=== PATIENT | female | born 1965 | race Caucasian/White ===

== ENCOUNTER 2016-10-12 12:36 | Emergency (ER) | payer MEDICARE, MEDICAID ==
[2016-10-12 12:50] VITALS: BP 107/79
[2016-10-12] MEDS ORDERED: Sodium Chloride 0.9% 10 ML Syringe FLUSH PRN (12:55)
[2016-10-12] MEDS ORDERED: Ondansetron 4 MG/2 ML SDV IVPUSH ONE (13:12)
--- NOTE | 2016-10-12 13:13 | EDM.PDOC ---
ED HISTORY OF PRESENT ILLNESS - General Chief Complaint: Chest Pain Stated Complaint: SHOULDER PAIN Time Seen by Provider: 10/12/16 13:02 Source of Information: Reports: Patient History Limitations: Reports: No limitations - History of Present Illness INITIAL COMMENTS - FREE TEXT/NARRATIVE: Patient presents for evaluation and treatment of chest pain and left shoulder pain. Patient reports that the chest pain began around 10 AM this morning. She says that she was folding clothes at the time. Says it radiates up to her left shoulder. She reports associated symptoms of nausea, diaphoresis, lightheadedness, dizziness and shortness of breath. Patient reports that she first noticed a shortness of breath yesterday. She states that the pain is currently an 8/10. He describes it as a sharp stabbing sensation and a tightness. She did take 3 sublingual nitroglycerin prior to arrival in the ER. She states this helped with the tightness but not the sharp pain. Patient denies any cough, fevers or syncope. Patient states that she normally takes an 81 mg aspirin daily but did not take any aspirin today. Patient has a history of a stent to the right coronary artery. This was performed in June 2014. She states that she had 3 negative stress test prior to the coronary artery stent placement. She states that after 3 negative stress test, a blockage was seen on a CT scan. She then had an angiogram which revealed an 80% blockage of the right coronary artery. She does not recall her last stress test. She also reports that she has smaller vessels to small to be stented. These are medically managed by taking an 81 mg aspirirn daily, Toprol, Imdur and Lipitor. Patient resides in [facility]. Her primary care provider resides there. She reports that her last visit was within the last 6 months. She is here in [place] visiting a friend. she's been seen in our ER on multiple occasions for chest discomfort and other pain-related issues. Location, General: Reports: chest, upper extremity, left Quality: Reports: Sharp, Other (tightness) Associated Symptoms (General): Reports: chest pain, diaphoresis, nausea/vomiting , shortness of breath. Denies: cough Treatments [employer] AMBASS[employer]OR: Reports: Nitroglycerin. Denies: Aspirin - Related Data Allergies/ADRs: Allergies Allergy/AdvReac Type Severity Reaction Status Date / Time celecoxib [From Celebrex] Allergy unknown Verified 10/12/16 12:47 ketorolac tromethamine Allergy Rash Verified 10/12/16 12:47 [From Toradol] lisinopril Allergy Other Verified 10/12/16 12:47 NSAIDS (Non-Steroidal Allergy Chills Verified 10/12/16 12:47 Anti-Inflamma pantoprazole sodium Allergy Other Verified 10/12/16 12:47 [From Protonix] Sulfa (Sulfonamide Allergy unknown Verified 10/12/16 12:47 Antibiotics) sumatriptan [From Imitrex] Allergy Rash Verified 10/12/16 12:47 sumatriptan succinate Allergy Rash Verified 10/12/16 12:47 [From Imitrex] Home Meds: Home Meds Albuterol [Ventolin HFA] 2 puff INH Q6HR PRN 11/19/13 [History] Lidocaine 5% [Lidoderm 5%] 1 patch TOP DAILY PRN 01/04/14 [History] Aspirin 81 mg PO DAILY 08/10/15 [History] Cholecalciferol (Vitamin D3) [Vitamin D] 1 tab PO DAILY 08/10/15 [History] Isosorbide Mononitrate [Imdur] 30 mg PO DAILY 09/15/15 [History] Ranitidine [Zantac] 150 mg PO BID 10/10/15 [History] ClonazePAM [KlonoPIN] 0.5 mg PO BID PRN 03/08/16 [History] Mirtazapine [Remeron] 30 mg PO BEDTIME 06/08/16 [History] Tribild 1 tab PO BEDTIME 06/08/16 [History] atorvaSTATin [Lipitor] 40 mg PO DAILY 06/08/16 [History] ARIPiprazole [Abilify] 5 mg PO DAILY 06/12/16 [History] Metoprolol Tartrate [Lopressor] 25 mg PO BID 06/12/16 [History] traZODone 100 mg PO BEDTIME PRN 06/12/16 [History] Promethazine [Phenergan] 0.5 ml TOP Q6H PRN 09/01/16 [History] Past Medical History HEENT History: Reports: Impaired vision Cardiovascular History: Reports: Angina, Hypertension, Stents Other Cardiovascular History: June 2014 at [facility] right cornary artery stent Respiratory History: Reports: COPD Gastrointestinal History: Reports: Diverticulosis Other Gastrointestinal History: gastroparesis Genitourinary History: Reports: None Musculoskeletal History: Reports: Fibromyalgia, Other (see below) Other Musculoskeletal History: neuropathy in both feet Neurological History: Reports: Neuropathy, peripheral, Other (see below) Other Neuro History: Fibromyalsia Psychiatric History: Reports: Anxiety, Depression Endocrine/Metabolic History: Reports: None Hematologic History: Reports: None Immunologic History: Reports: HIV Oncologic (Cancer) History: Reports: None Dermatologic History: Reports: None - Infectious Disease History Infectious Disease History: Reports: HIV-Human immunodeficiency virus - Past Surgical History HEENT Surgical History: Reports: Adenoidectomy, Tonsillectomy Cardiovascular Surgical History: Reports: Coronary artery stent, Other (see below) Other Cardiovascular Surgeries/Procedures: 2 angiograms GI Surgical History: Reports: Cholecystectomy Female Surgical History: Reports: Hysterectomy, Other (see below) Other Female Surgeries/Procedures: bladder sling Social & Family History - Family History Family Medical History: Noncontributory Cardiac: Reports: CAD, Hypertension - Tobacco Use Smoking Status *Q: Current Every Day Smoker Years of Tobacco use: 35 Packs/Tins Daily: 0.5 Used Tobacco, but Quit: No Second Hand Smoke Exposure: No - Caffeine Use Caffeine Use: Reports: Coffee, Soda - Alcohol Use Days Per Week of Alcohol Use: 1 Number of Drinks Per Day: 2 Total Drinks Per Week: 2 - Recreational Drug Use Recreational Drug Use: Yes Drug Use in Last 12 Months: No Recreational Drug Type: Reports: Marijuana/Hashish Recreational Drug Use Frequency: Rarely - Living Situation & Occupation Living situation: Reports: single Occupation: unemployed ED ROS GENERAL - Review of Systems Review Of Systems: See Below Constitutional: Reports: diaphoresis. Denies: fever, chills Respiratory: Reports: shortness of breath. Denies: cough Cardiovascular: Reports: Chest pain, Lightheadedness. Denies: Syncope GI/Abdominal: Reports: Nausea. Denies: Vomiting Musculoskeletal: Reports: shoulder pain Neurological: Reports: dizziness. Denies: syncope ED EXAM, GENERAL - Physical Exam Exam: See Below Exam Limited By: No limitations General Appearance: alert, WD/WN, no apparent distress Respiratory/Chest: no respiratory distress, lungs clear, normal breath sounds Cardiovascular: normal peripheral pulses, regular rate, rhythm, no murmur Neurological: alert, oriented, normal cognition Psychiatric: normal affect, normal mood Skin Exam: Warm, Dry, Normal color EKG INTERPRETATION EKG Date: 10/12/16 Time: 12:50 Rhythm: NSR Rate (beats/min): 62 [place]: normal P-wave: present QRS: normal ST-T: normal QT: normal Comparison: no change EKG Interpretation Comments: NSR at [address] segment changes. Reviewed by myself and Dr. Walter. Course - Vital Signs Last Recorded V/S: Last Vital Signs Temp 36.3 C 10/12/16 12:47 Pulse 77 10/12/16 12:47 Resp 12 10/12/16 12:47 BP 107/79 10/12/16 12:47 Pulse Ox 100 10/12/16 12:47 - Orders/Labs/Meds Orders: Active Orders 24 hr Category Date Time Status Cardiac Monitoring [RC] . DIRECTED Care 10/12/16 12:56 Active EKG 12 Lead [EKG Documentation Completion] [RC] STAT Care 10/12/16 12:54 Active Peripheral IV Care [RC] . DIRECTED Care 10/12/16 12:55 Active Sodium Chloride 0.9% [Saline Flush] Med 10/12/16 12:55 Active 10 ml FLUSH ASDIRECTED PRN Peripheral IV Insertion Adult [OM.PC] Routine Oth 10/12/16 12:55 Ordered Medication Orders Sodium Chloride (Saline Flush) 10 ml FLUSH ASDIRECTED PRN PRN Reason: Keep Vein Open Last Admin: 10/12/16 13:22 Dose: 10 ml Labs: Laboratory Tests 10/12/16 10/12/16 10/12/16 Range/Units 13:05 13:05 13:05 WBC 8.08 (3.98-10.04) K/mm3 RBC 4.41 (3.98-5.22) M/mm3 Hgb 13.3 (11.2-15.7) gm/L Hct 40.6 (34.1-44.9) % MCV 92.1 (79.4-94.8) fl MCH 30.2 (25.6-32.2) pg MCHC 32.8 (32.2-35.5) g/dl RDW Std Deviation 47.2 H (36.4-46.3) fL Plt Count 223 (182-369) K/mm3 MPV 9.4 (9.4-12.3) fl Neut % (Auto) 58.5 (34.0-71.1) % Lymph % (Auto) 33.3 (19.3-51.7) % [place] % (Auto) 7.2 (4.7-12.5) % Eos % (Auto) 0.7 (0.7-5.8) Baso % (Auto) 0.2 (0.1-1.2) % Neut # 4.72 (1.56-6.13) K/mm3 Lymph # 2.69 (1.18-3.74) K/mm3 [place] # 0.58 H (0.24-0.36) K/mm3 Eos # 0.06 (0.04-0.36) K/mm3 Baso # 0.02 (0.01-0.08) K/mm3 PT 10.0 (8.0-13.0) SECONDS INR 0.95 Sodium 139 (136-145) mEq/L Potassium 3.9 (3.5-5.1) mEq/L Chloride 104 (98-107) mEq/L Carbon Dioxide 24 (21-32) mEq/L Anion Gap 14.9 (5-15) BUN 14 (7-18) mg/dL Creatinine 0.8 (0.55-1.02) mg/dL Est Cr Clr Drug Dosing 68.05 mL/min Estimated GFR (MDRD) > 60 (>60) mL/min BUN/Creatinine Ratio 17.5 (14-18) Glucose 103 (74-106) mg/dL Calcium 9.0 (8.5-10.1) mg/dL Total Bilirubin 0.5 (0.2-1.0) mg/dL AST 17 (15-37) U/L ALT 26 (14-59) U/L Alkaline Phosphatase 115 (46-116) U/L Troponin I < 0.017 (0.00-0.056) ng/mL Total Protein 7.5 (6.4-8.2) g/dl Albumin 4.3 (3.4-5.0) g/dl Globulin 3.2 gm/dL Albumin/Globulin Ratio 1.3 (1-2) 10/12/16 Range/Units 14:37 WBC (3.98-10.04) K/mm3 RBC (3.98-5.22) M/mm3 Hgb (11.2-15.7) gm/L Hct (34.1-44.9) % MCV (79.4-94.8) fl MCH (25.6-32.2) pg MCHC (32.2-35.5) g/dl RDW Std Deviation (36.4-46.3) fL Plt Count (182-369) K/mm3 MPV (9.4-12.3) fl Neut % (Auto) (34.0-71.1) % Lymph % (Auto) (19.3-51.7) % [place] % (Auto) (4.7-12.5) % Eos % (Auto) (0.7-5.8) Baso % (Auto) (0.1-1.2) % Neut # (1.56-6.13) K/mm3 Lymph # (1.18-3.74) K/mm3 [place] # (0.24-0.36) K/mm3 Eos # (0.04-0.36) K/mm3 Baso # (0.01-0.08) K/mm3 PT (8.0-13.0) SECONDS INR Sodium (136-145) mEq/L Potassium (3.5-5.1) mEq/L Chloride (98-107) mEq/L Carbon Dioxide (21-32) mEq/L Anion Gap (5-15) BUN (7-18) mg/dL Creatinine (0.55-1.02) mg/dL Est Cr Clr Drug Dosing mL/min Estimated GFR (MDRD) (>60) mL/min BUN/Creatinine Ratio (14-18) Glucose (74-106) mg/dL Calcium (8.5-10.1) mg/dL Total Bilirubin (0.2-1.0) mg/dL AST (15-37) U/L ALT (14-59) U/L Alkaline Phosphatase (46-116) U/L Troponin I < 0.017 (0.00-0.056) ng/mL Total Protein (6.4-8.2) g/dl Albumin (3.4-5.0) g/dl Globulin gm/dL Albumin/Globulin Ratio (1-2) Meds: Medications Generic Name Dose Route Start Last Admin Trade Name Freq PRN Reason Stop Dose Admin Sodium Chloride 10 ml 10/12/16 12:55 10/12/16 13:22 Saline Flush FLUSH 10 ml ASDIRECTED PRN Administration Keep Vein Open Discontinued Medications Generic Name Dose Route Start Last Admin Trade Name Ioana PRN Reason Stop Dose Admin Acetaminophen 1,000 mg 10/12/16 15:07 10/12/16 15:15 Tylenol PO 10/12/16 15:08 975 mg NOW ONE Administration Aspirin 324 mg 10/12/16 13:15 10/12/16 13:22 Aspirin PO 10/12/16 13:16 324 mg ONETIME ONE Administration Al Hydroxide/Mg Hydroxide 30 0 ml 10/12/16 14:14 10/12/16 14:25 ml/ Lidocaine HCl 15 ml PO 10/12/16 14:15 15 ml ONETIME ONE Administration Hyoscyamine 0.125 mg 10/12/16 14:14 10/12/16 14:24 Hyomax-Sl SL 10/12/16 14:15 0.125 mg ONETIME ONE Administration Ondansetron HCl 4 mg 10/12/16 13:12 10/12/16 13:22 Zofran IVPUSH 10/12/16 13:13 4 mg ONETIME ONE Administration - Radiology Interpretation Free Text/Narrative:: Chest [address] Rajan : 1. Incidental findings. Left shoulder impression per Dr. Rajan : 1. No abnormality is identified on left shoulder study. - Re-Assessments/Exams Free Text/Narrative Re-Assessment/Exam: 10/12/16 14:08 Patient searched on the [place] prescription drug registry. 26 prescriptions from 13 prescribers within the last year for controlled substances. most recently received hydrocodone 5-325 on 09-01-16. Patient has been seen on numerous occasions for chest pain and other pain related complaints. I am suspicious the patient is seeking narcotic pain medication. Labs returned. Trop is within normal limits at <0.017. Will repeat trop in about 30 min. to ensure this is not cardiac. Pt is 10.0, INR is 0.95 WBC is 8.08, hgb is 13.3 and plts are 223 Sodium is 139, potassium is 3.9 and chloride is 104. Anion gap is 14.9 AST is 17, ALT is 26 and alk phos is 115 Patient reports continued pain. She was given levsin and a GI cocktail for suspected reflux and hiatal hernia relief. 10/12/16 14:49 Repeat top is negative at <0.017 10/12/16 15:10 Continues to complain of pain. Will give 1gram tylenol and plan on discharge home. Departure - Departure Time of Disposition: 15:08 Disposition: Home, Self-Care 01 Condition: fair Clinical Impression: Non-cardiac chest pain Instructions: Nonspecific Chest Pain, [id number] Referrals: Dena Hutchison PA-C [Primary Care Provider] - Forms: ED Department Discharge Additional Instructions: Follow up with your primary care provider in 1-2 weeks. Ice or moist heat to the sore areas. [id number] Tylenol or Motrin as needed for pain and symptom relief. Please return to the ER should your symptoms change or worsen. - My Orders Last 24 Hours: My Active Orders 10/12/16 12:54 EKG 12 Lead [EKG Documentation Completion] [RC] STAT 10/12/16 12:55 Peripheral IV Care [RC] . DIRECTED Sodium Chloride 0.9% [Saline Flush] 10 ml FLUSH ASDIRECTED PRN Peripheral IV Insertion Adult [OM.PC] Routine 10/12/16 12:56 Cardiac Monitoring [RC] . DIRECTED - Assessment/Plan Last 24 Hours: My Active Orders 10/12/16 12:54 EKG 12 Lead [EKG Documentation Completion] [RC] STAT 10/12/16 12:55 Peripheral IV Care [RC] . DIRECTED Sodium Chloride 0.9% [Saline Flush] 10 ml FLUSH ASDIRECTED PRN Peripheral IV Insertion Adult [OM.PC] Routine 10/12/16 12:56 Cardiac Monitoring [RC] . DIRECTED
[2016-10-12] MEDS ORDERED: Aspirin 81 MG Tab.Chew PO ONE (13:15)
[2016-10-12] MEDS ORDERED: Hyoscyamine 0.125 MG Tab.SL SL ONE (14:14)
[2016-10-12] MEDS ORDERED: Alum Hydrox/Mag Hydrox/Simeth 30 ML, Lidocaine 2% 15 ML PO ONE ×2 (14:14)
--- NOTE | 2016-10-12 14:42 | CR ---
Chest: Two views of the chest were obtained. Comparison: Previous chest x-ray of 09/01/[address] of 09/02/16. Heart size and mediastinum are normal. Lungs are clear. Slight scoliosis is noted within the spine. Surgical clips are seen from prior cholecystectomy. Impression: 1. Incidental findings. Nothing acute is identified on two-view chest x-ray. Diagnostic code #2
--- NOTE | 2016-10-12 14:42 | CR ---
Left shoulder: Three views of the left shoulder were obtained. Comparison: No previous shoulder study. Glenohumeral joint and acromioclavicular joint appears within normal limits. No acute fracture, dislocation or other bony abnormality is seen. Impression: 1. No abnormality is identified on left shoulder study. Diagnostic code #1
[2016-10-12] MEDS ORDERED: Acetaminophen 325 MG Tab PO ONE (15:07)
== END 2016-10-12 15:18 | disposition home or self-care (01) ==
LOC: JD.ED 12:36
DX: R07.89 Other chest pain (principal); M25.512 Pain in left shoulder; R42 Dizziness and giddiness; F17.210 Nicotine dependence, cigarettes, uncomplicated; Z88.2 Allergy status to sulfonamides; Z88.5 Allergy status to narcotic agent; Z88.6 Allergy status to analgesic agent; Z88.8 Allergy status to other drugs, medicaments and biological substances; Z79.82 Long term (current) use of aspirin; Z79.899 Other long term (current) drug therapy; Z90.89 Acquired absence of other organs; Z90.710 Acquired absence of both cervix and uterus; Z98.890 Other specified postprocedural states
CPT/HCPCS: 36415; 71020; 71020-26; 73030-26-LT; 73030-LT; 80053; 84484; 85025; 85610; 93005; 96374; 99284; 99285-25; A9270-GY; J2405; J7050

== ENCOUNTER 2018-08-27 12:03 | Emergency (ER) | payer MEDICARE, MEDICAID ==
[2018-08-27 12:29] VITALS: BP 147/89
[2018-08-27] MEDS ORDERED: Ondansetron 4 MG/2 ML SDV IVPUSH ONE (13:08)
[2018-08-27] MEDS ORDERED: Sodium Chloride 0.9% 1,000 ML IV SCH (13:15)
--- NOTE | 2018-08-27 13:21 | EDM.PDOC ---
ED HPI GENERAL MEDICAL PROBLEM - General Chief Complaint: Abdominal Pain Stated Complaint: ABD PAIN Time Seen by Provider: 08/27/18 12:54 Source of Information: Reports: Patient, RN Notes Reviewed - History of Present Illness INITIAL COMMENTS - FREE TEXT/NARRATIVE: 53-year-old female with onset of abdominal pain, nausea and vomiting about 9 hours ago during the middle of the night. Her pain was generalized but more upper than lower abdomen followed by nausea and vomiting. Did have a large BM at that time but no diarrhea. She's had no fever or chills. Her discomfort continues to be fairly generalized with intermittent cramping. She has not been eating today. She still does have her appendix and gallbladder. She also states she has hx of gastroparesis. Abdominal Pain Score (Numeric/FACES): 8 - Related Data Allergies Allergy/AdvReac Type Severity Reaction Status Date / Time celecoxib [From Celebrex] Allergy unknown Verified 08/27/18 22:29 ketorolac tromethamine Allergy Rash Verified 08/27/18 22:29 [From Toradol] lisinopril Allergy Other Verified 08/27/18 22:29 NSAIDS (Non-Steroidal Allergy Chills Verified 08/27/18 22:29 Anti-Inflamma pantoprazole sodium Allergy Other Verified 08/27/18 22:29 [From Protonix] Sulfa (Sulfonamide Allergy unknown Verified 08/27/18 22:29 Antibiotics) sumatriptan [From Imitrex] Allergy Rash Verified 08/27/18 22:29 sumatriptan succinate Allergy Rash Verified 08/27/18 22:29 [From Imitrex] Home Meds: Home Meds Albuterol [Ventolin HFA] 2 puff INH Q6HR PRN 11/19/13 [History] Lidocaine 5% [Lidoderm 5%] 1 patch TOP DAILY PRN 01/04/14 [History] Aspirin 81 mg PO DAILY 08/10/15 [History] Cholecalciferol (Vitamin D3) [Vitamin D] 1 tab PO DAILY 08/10/15 [History] Isosorbide Mononitrate [Imdur] 30 mg PO DAILY 09/15/15 [History] Ranitidine [Zantac] 150 mg PO BID 10/10/15 [History] ClonazePAM [KlonoPIN] 0.5 mg PO BID PRN 03/08/16 [History] Mirtazapine [Remeron] 30 mg PO BEDTIME 06/08/16 [History] Tribild 1 tab PO BEDTIME 06/08/16 [History] atorvaSTATin [Lipitor] 40 mg PO DAILY 06/08/16 [History] ARIPiprazole [Abilify] 5 mg PO DAILY 06/12/16 [History] Metoprolol Tartrate [Lopressor] 25 mg PO BID 06/12/16 [History] traZODone 100 mg PO BEDTIME PRN 06/12/16 [History] Promethazine [Phenergan] 0.5 ml TOP Q6H PRN 09/01/16 [History] Ondansetron [Zofran ODT] 4 mg PO Q8HR PRN #10 tab.dis 08/27/18 [Rx] Past Medical History HEENT History: Reports: Impaired Vision Cardiovascular History: Reports: Stents Other Cardiovascular History: 4 years ago Respiratory History: Reports: COPD Gastrointestinal History: Reports: Diverticulosis Other Gastrointestinal History: gastroparesis Genitourinary History: Reports: None Musculoskeletal History: Reports: Fibromyalgia, Other (See Below) Other Musculoskeletal History: neuropathy in both feet Neurological History: Reports: Neuropathy, Peripheral, Other (See Below) Other Neuro History: Fibromyalsia Psychiatric History: Reports: Anxiety, Depression Endocrine/Metabolic History: Reports: None Hematologic History: Reports: None Immunologic History: Reports: HIV Oncologic (Cancer) History: Reports: None Dermatologic History: Reports: None - Infectious Disease History Infectious Disease History: Reports: HIV-Human Immunodeficiency Virus - Past Surgical History Cardiovascular Surgical History: Reports: Coronary Artery Stent, Other (See Below) GI Surgical History: Reports: Cholecystectomy Female Surgical History: Reports: Hysterectomy, Other (See Below) Social & Family History - Family History Family Medical History: Noncontributory Cardiac: Reports: CAD, Hypertension - Tobacco Use Smoking Status *Q: Current Some Day Smoker Years of Tobacco use: 20 Packs/Tins Daily: 0.5 - Caffeine Use Caffeine Use: Reports: Coffee - Living Situation & Occupation Living situation: Reports: Single Occupation: Unemployed ED ROS GENERAL - Review of Systems Review Of Systems: See Below Constitutional: Denies: Fever, Chills, Diaphoresis HEENT: Denies: Throat Pain Respiratory: Denies: Shortness of Breath Cardiovascular: Denies: Chest Pain GI/Abdominal: Reports: Abdominal Pain, Nausea, Vomiting. Denies: Hematochezia, Melena Musculoskeletal: Denies: Back Pain Skin: Denies: Jaundice, Rash Neurological: Reports: Dizziness. Denies: Trouble Speaking ED EXAM, GI/ABD - Physical Exam Exam: See Below General Appearance: Alert, Mild Distress Eyes: Bilateral: Normal Appearance Nose: Normal Inspection Throat/Mouth: Normal Inspection Head: Atraumatic Neck: Supple Respiratory/Chest: No Respiratory Distress, Lungs Clear, Normal Breath Sounds Cardiovascular: Regular Rate, Rhythm GI/Abdominal Exam: Soft, Rebound, Tender (Moderate diffuse tenderness upper mid abdomen, mild bilateral lower abdominal tenderness). No: Guarding Back Exam: No: CVA Tenderness (L), CVA Tenderness (R) Extremities: Normal Inspection Neurological: Alert, Oriented, Normal Cognition, No Motor/Sensory Deficits Skin Exam: Warm, Dry, Normal Color Course - Vital Signs Last Recorded V/S: Last Vital Signs Temp 97.0 F 08/27/18 12:26 Pulse 74 08/27/18 12:26 Resp 18 08/27/18 12:26 BP 147/89 H 08/27/18 12:26 Pulse Ox 98 08/27/18 12:26 - Orders/Labs/Meds Labs: Laboratory Tests 08/27/18 08/27/18 08/27/18 Range/Units 14:20 14:20 14:20 WBC 7.65 (3.98-10.04) K/mm3 RBC 4.28 (3.98-5.22) M/mm3 Hgb 13.0 (11.2-15.7) gm/L Hct 40.5 (34.1-44.9) % MCV 94.6 (79.4-94.8) fl MCH 30.4 (25.6-32.2) pg MCHC 32.1 L (32.2-35.5) g/dl RDW Std Deviation 45.7 (36.4-46.3) fL Plt Count 251 (182-369) K/mm3 MPV 8.6 L (9.4-12.3) fl Neutrophils % (Manual) 57 (40-60) % Band Neutrophils % 1 (0-10) % Lymphocytes % (Manual) 38 (20-40) % Atypical Lymphs % 0 % Monocytes % (Manual) 4 (2-10) % Eosinophils % (Manual) 0 L (0.7-5.8) % Basophils % (Manual) 0 L (0.1-1.2) Platelet Estimate Adequate RBC Morph Comment Normal Sodium 143 (136-145) mEq/L Potassium 3.7 (3.5-5.1) mEq/L Chloride 110 H (98-107) mEq/L Carbon Dioxide 26 (21-32) mEq/L Anion Gap 10.7 (5-15) BUN 9 (7-18) mg/dL Creatinine 0.6 (0.55-1.02) mg/dL Est Cr Clr Drug Dosing 88.27 mL/min Estimated GFR (MDRD) > 60 (>60) mL/min BUN/Creatinine Ratio 15.0 (14-18) Glucose 92 (74-106) mg/dL Calcium 8.0 L (8.5-10.1) mg/dL Total Bilirubin 0.2 (0.2-1.0) mg/dL AST 16 (15-37) U/L ALT 28 (14-59) U/L Alkaline Phosphatase 102 (46-116) U/L C-Reactive Protein 0.3 (<1.0) mg/dL Total Protein 6.6 (6.4-8.2) g/dl Albumin 3.2 L (3.4-5.0) g/dl Globulin 3.4 gm/dL Albumin/Globulin Ratio 0.9 L (1-2) Meds: Medications Discontinued Medications Generic Name Dose Route Start Last Admin Trade Name Freq PRN Reason Stop Dose Admin Hydromorphone HCl 1 mg 08/27/18 13:08 08/27/18 14:35 Dilaudid IVPUSH 08/27/18 13:09 0.5 mg ONETIME ONE Administration Hydromorphone HCl 0.5 mg 08/27/18 16:16 08/27/18 16:23 Dilaudid IVPUSH 08/27/18 16:17 0.5 mg ONETIME ONE Administration Sodium Chloride 1,000 mls @ 999 mls/hr 08/27/18 13:15 08/27/18 13:24 Normal Saline IV 999 mls/hr ONETIME IVET Administration Metoclopramide HCl 5 mg 08/27/18 17:05 08/27/18 17:12 Reglan IVPUSH 08/27/18 17:06 5 mg ONETIME ONE Administration Ondansetron HCl 4 mg 08/27/18 13:08 08/27/18 13:24 Zofran IVPUSH 08/27/18 13:09 4 mg ONETIME ONE Administration Ondansetron HCl 4 mg 08/27/18 17:06 08/27/18 17:13 Zofran Odt PO 08/27/18 17:07 4 mg ONETIME ONE Administration Sodium Chloride 10 ml 08/27/18 13:08 08/27/18 16:23 Saline Flush FLUSH 10 ml ASDIRECTED PRN Administration Keep Vein Open - Re-Assessments/Exams Free Text/Narrative Re-Assessment/Exam: 08/30/18 12:40 We did give IV fluid, IV zofran and dilaudid and that did help her feel much better. Labs were relatively nl, increased gas upper colon on XRay, no visible air fluid levels. Discharge instr. as documented. Departure - Departure Time of Disposition: 17:07 Disposition: Home, Self-Care 01 Condition: Fair Clinical Impression: Gastroparesis, Abdominal pain Nausea & vomiting Qualifiers: Vomiting type: unspecified Vomiting Intractability: unspecified Qualified Code( s): R11.2 - Nausea with vomiting, unspecified - Discharge Information Prescriptions: Ondansetron [Zofran ODT] 4 mg PO Q8HR PRN #10 tab.dis PRN Reason: Nausea/Vomiting Instructions: Abdominal Pain, Adult, Nausea and Vomiting, Adult, Gastroparesis Referrals: PCP,Not In Area [Primary Care Provider] - Forms: ED Department Discharge Additional Instructions: Rest, clear liquids only until tomorrow afternoon, then very careful bland diet as tolerated, take the Zofran we are sending home with you in about 3-4 hours. You may continue to use Zofran every 6-8 hours as needed for severe nausea or vomiting. Follow-up with your regular medical provider if not much better within 1-2 days as expected.
[2018-08-27] MEDS: HYDROmorphone 1 MG/ML Syringe IVPUSH ONE ×2 (13:24→14:35)
[2018-08-27] MEDS: Sodium Chloride 0.9% 10 ML Syringe FLUSH PRN ×2 (13:25→16:23)
[2018-08-27] MEDS ORDERED: HYDROmorphone 1 MG/ML Syringe IVPUSH ONE (16:16)
[2018-08-27] MEDS ORDERED: Metoclopramide 10 MG/2 ML SDV IVPUSH ONE (17:05)
[2018-08-27] MEDS ORDERED: Ondansetron 4 MG Tab.DIS PO ONE (17:06)
--- NOTE | 2018-08-28 07:58 | CR ---
Abdomen: Supine and upright views of the abdomen were obtained. Comparison: Previous abdominal x-ray of 09/28/15. Gas is noted within the colon which appears within normal limits. Surgical clips are seen from prior cholecystectomy. Additional surgical material is seen within the right pelvis. No abnormal calcifications or soft tissue abnormality is seen. Bony structures appear within normal limits for the patient's age. Impression: 1. Incidental findings. Nothing acute is appreciated. Diagnostic code #2
== END 2018-08-27 17:20 | disposition home or self-care (01) ==
LOC: JD.ED 12:03
DX: K31.84 Gastroparesis (principal); F17.210 Nicotine dependence, cigarettes, uncomplicated; J44.9 Chronic obstructive pulmonary disease, unspecified; F32.9 Major depressive disorder, single episode, unspecified; F41.9 Anxiety disorder, unspecified; B20 Human immunodeficiency virus [HIV] disease; G62.9 Polyneuropathy, unspecified; Z88.2 Allergy status to sulfonamides; Z88.6 Allergy status to analgesic agent; Z88.8 Allergy status to other drugs, medicaments and biological substances; Z79.82 Long term (current) use of aspirin; Z79.899 Other long term (current) drug therapy; Z90.49 Acquired absence of other specified parts of digestive tract; Z90.710 Acquired absence of both cervix and uterus
CPT/HCPCS: 36415; 74019; 80053; 85007; 85027; 86140; 96361; 96374; 96375; 96376; 99284; A9270; J1170; J2405; J2765; J7040

== ENCOUNTER 2020-06-29 11:14 | Emergency (ER) | payer MEDICARE, MEDICAID ==
[2020-06-29] MEDS ORDERED: HYDROmorphone 0.5 MG/0.5 ML Syringe IVPUSH ONE ×2 (12:12→13:28)
[2020-06-29] MEDS ORDERED: Ondansetron 4 MG/2 ML SDV IVPUSH ONE (12:14)
--- NOTE | 2020-06-29 12:19 | EDM.PDOC ---
ED HPI GENERAL MEDICAL PROBLEM - General Chief Complaint: Back Pain or Injury Stated Complaint: BACK PAIN Time Seen by Provider: 06/29/20 12:01 Source of Information: Reports: Patient, RN Notes Reviewed History Limitations: Reports: No Limitations - History of Present Illness INITIAL COMMENTS - FREE TEXT/NARRATIVE: Patient is a 55-year-old female who presents to the ED for the evaluation of some ongoing lower back pain. She notes this has been present for the last 2 days. She characterizes this as a deep burning/ache across her entire back. She feels like a stick whacked her on the back. She notes last night she didn't get much sleep due to the pain. She has not had any fevers or chills, she has had a mild bit of nausea, but no vomiting or diarrhea. She denies any trauma to the area, or any near slips trips or falls. She has a history of chronic constipation, and denies any sort of diarrhea. She notes she has had pain like this in the past, with a previous kidney infection. She states that 2 days ago she got up off the chair, and felt a twinge in her back and thought maybe she pulled a muscle. Pain has been constant since then, and kind of worsens in p ulses. She is not taking anything for [id number] management as she has an allergic reaction to NSAIDs and gets rashes on her stomach from this. Bilateral Lower Back Pain Score (Numeric/FACES): 9 - Related Data Allergies Allergy/AdvReac Type Severity Reaction Status Date / Time celecoxib [From Celebrex] Allergy unknown Verified 08/27/18 22:29 ketorolac tromethamine Allergy Rash Verified 08/27/18 22:29 [From Toradol] lisinopril Allergy Other Verified 08/27/18 22:29 NSAIDS (Non-Steroidal Allergy Chills Verified 08/27/18 22:29 Anti-Inflamma pantoprazole sodium Allergy Other Verified 08/27/18 22:29 [From Protonix] Sulfa (Sulfonamide Allergy unknown Verified 08/27/18 22:29 Antibiotics) sumatriptan [From Imitrex] Allergy Rash Verified 08/27/18 22:29 sumatriptan succinate Allergy Rash Verified 08/27/18 22:29 [From Imitrex] Home Meds: Home Meds Albuterol [Ventolin HFA] 2 puff INH Q6HR PRN 11/19/13 [History] Aspirin 81 mg PO DAILY 08/10/15 [History] ClonazePAM [KlonoPIN] 0.5 mg PO BID PRN 03/08/16 [History] Tribild 1 tab PO BEDTIME 06/08/16 [History] atorvaSTATin [Lipitor] 40 mg PO DAILY 06/08/16 [History] ARIPiprazole [Abilify] 5 mg PO DAILY 06/12/16 [History] Ondansetron [Zofran ODT] 4 mg PO Q8HR PRN #10 tab.dis 08/27/18 [Rx] Acetaminophen/HYDROcodone [[place] 325-5 MG] 1 tab PO Q6H PRN #15 tablet 06/29/20 [Rx] Orphenadrine [Norflex] 100 mg PO BID PRN #20 tab 06/29/20 [Rx] PARoxetine HCl [Paxil] 1 tab PO DAILY 06/29/20 [History] hydrOXYzine HCL [Hydroxyzine HCl] 1 tab PO DAILY PRN 06/29/20 [History] Past Medical History HEENT History: Reports: Impaired Vision Cardiovascular History: Reports: Stents Other Cardiovascular History: 4 years ago Respiratory History: Reports: COPD Gastrointestinal History: Reports: Diverticulosis Other Gastrointestinal History: gastroparesis Genitourinary History: Reports: Other (See Below) (past kidney infection) Musculoskeletal History: Reports: Fibromyalgia Other Musculoskeletal History: neuropathy in both feet Neurological History: Reports: Neuropathy, Peripheral Other Neuro History: Fibromyalsia Psychiatric History: Reports: Anxiety, Depression Immunologic History: Reports: HIV - Infectious Disease History Infectious Disease History: Reports: HIV-Human Immunodeficiency Virus - Past Surgical History HEENT Surgical History: Reports: Adenoidectomy, Tonsillectomy Cardiovascular Surgical History: Reports: Coronary Artery Stent, Other (See Below) Other Cardiovascular Surgeries/Procedures: 2 angiograms GI Surgical History: Reports: Cholecystectomy Female Surgical History: Reports: Hysterectomy, Other (See Below) Other Female Surgeries/Procedures: bladder sling Social & Family History - Family History Family Medical History: No Pertinent Family History Cardiac: Reports: CAD, Hypertension - Tobacco Use Tobacco Use Status *Q: Current Every Day Tobacco User Years of Tobacco use: 30 Packs/Tins Daily: 0.5 - Caffeine Use Caffeine Use: Reports: Coffee - Recreational Drug Use Recreational Drug Use: Yes Drug Use in Last 12 Months: Yes Recreational Drug Type: Reports: Marijuana/Hashish Recreational Drug Use Frequency: Weekly - Living Situation & Occupation Living situation: Reports: Single Occupation: Unemployed ED ROS GENERAL - Review of Systems Review Of Systems: Comprehensive ROS is negative, except as noted in HPI. ED EXAM,LOWER BACK PAIN/INJURY - Physical Exam Exam: See Below Exam Limited By: No Limitations General Appearance: Alert, WD/WN, No Apparent Distress Respiratory/Chest: No Respiratory Distress, Lungs Clear, Normal Breath Sounds, No Accessory Muscle Use, Chest Non-Tender Cardiovascular: Normal Peripheral Pulses, Regular Rate, Rhythm, No Murmur GI/Abdominal: Normal Bowel Sounds, Soft, Non-Tender, No Distention, No Mass Back Exam: Normal Inspection, Full Range of Motion, CVA Tenderness (L). No: CVA Tenderness (R), Muscle Spasm Extremities: Normal Inspection, Normal Capillary Refill Neurological: Alert, Normal Mood/Affect, Normal Dorsiflexion, Normal Plantar Flexion, No Motor/Sensory Deficits Psychiatric: Normal Affect, Normal Mood Skin Exam: Warm, Dry, Intact, Normal Color, No Rash Course - Vital Signs Last Recorded V/S: Last Vital Signs Temp 97.6 F 06/29/20 11:31 Pulse 75 06/29/20 13:54 Resp 20 06/29/20 13:54 BP 108/72 06/29/20 13:54 Pulse Ox 100 06/29/20 13:54 - Orders/Labs/Meds Orders: Active Orders 24 hr Category Date Time Status CULTURE URINE [RM] Routine Lab 06/29/20 12:54 Ordered Peripheral IV Insertion Adult [OM.PC] Routine Oth 06/29/20 12:11 Ordered Labs: Laboratory Tests 06/29/20 06/29/20 06/29/20 Range/Units 11:40 11:40 11:47 WBC 5.28 (3.98-10.04) K/mm3 RBC 4.47 (3.98-5.22) M/mm3 Hgb 13.2 (11.2-15.7) gm/dl Hct 42.2 (34.1-44.9) % MCV 94.4 (79.4-94.8) fl MCH 29.5 (25.6-32.2) pg MCHC 31.3 L (32.2-35.5) g/dl RDW Std Deviation 46.4 H (36.4-46.3) fL Plt Count 213 (182-369) K/mm3 MPV 9.1 L (9.4-12.3) fl Neut % (Auto) 51.2 (34.0-71.1) % Lymph % (Auto) 36.2 (19.3-51.7) % [place] % (Auto) 9.1 (4.7-12.5) % Eos % (Auto) 2.7 (0.7-5.8) Baso % (Auto) 0.2 (0.1-1.2) % Neut # (Auto) 2.71 (1.56-6.13) K/mm3 Lymph # (Auto) 1.91 (1.18-3.74) K/mm3 [place] # (Auto) 0.48 H (0.24-0.36) K/mm3 Eos # (Auto) 0.14 (0.04-0.36) K/mm3 Baso # (Auto) 0.01 (0.01-0.08) K/mm3 Sodium 139 (136-145) mEq/L Potassium 4.2 (3.5-5.1) mEq/L Chloride 105 (98-107) mEq/L Carbon Dioxide 28 (21-32) mEq/L Anion Gap 10.2 (5-15) BUN 12 (7-18) mg/dL Creatinine 1.0 (0.55-1.02) mg/dL Est Cr Clr Drug Dosing 51.96 mL/min Estimated GFR (MDRD) 57 (>60) mL/min BUN/Creatinine Ratio 12.0 L (14-18) Glucose 96 (74-106) mg/dL Calcium 8.5 (8.5-10.1) mg/dL Total Bilirubin 0.2 (0.2-1.0) mg/dL AST 16 (15-37) U/L ALT 25 (14-59) U/L Alkaline Phosphatase 115 (46-116) U/L Total Protein 7.1 (6.4-8.2) g/dl Albumin 3.4 (3.4-5.0) g/dl Globulin 3.7 gm/dL Albumin/Globulin Ratio 0.9 L (1-2) Urine Color Yellow (Yellow) Urine Appearance Clear (Clear) Urine pH 6.0 (5.0-8.0) Ur Specific [place] > or = 1.030 (1.005-1.030) Urine Protein Negative (Negative) Urine Glucose (UA) Negative (Negative) Urine Ketones Trace H (Negative) Urine Occult Blood Negative (Negative) Urine Nitrite Negative (Negative) Urine Bilirubin Negative (Negative) Urine Urobilinogen 0.2 (0.2-1.0) Ur Leukocyte Esterase Negative (Negative) Urine RBC 0-5 (0-5) /hpf Urine WBC 0-5 (0-5) /hpf Ur Squamous Epith Cells 10-20 H (0-5) /hpf Urine Bacteria Moderate H (FEW) /hpf Urine Mucus Moderate H (FEW) /hpf Meds: Medications Discontinued Medications Generic Name Dose Route Start Last Admin Trade Name Freq PRN Reason Stop Dose Admin Hydromorphone HCl 0.5 mg 06/29/20 12:12 06/29/20 12:26 Dilaudid IVPUSH 06/29/20 12:13 0.5 mg ONETIME ONE Administration Hydromorphone HCl 0.5 mg 06/29/20 13:28 06/29/20 13:51 Dilaudid IVPUSH 06/29/20 13:29 0.5 mg ONETIME ONE Administration Ondansetron HCl 4 mg 06/29/20 12:14 06/29/20 12:24 Zofran IVPUSH 06/29/20 12:15 4 mg ONETIME ONE Administration Sodium Chloride 10 ml 06/29/20 12:11 06/29/20 13:53 Saline Flush FLUSH 10 ml ASDIRECTED PRN Administration Keep Vein Open - Re-Assessments/Exams Free Text/Narrative Re-Assessment/Exam: 06/29/20 12:21 Patient presents to the ED for her ongoing back pain. Have ordered urinalysis, basic labs, half milligram of Dilaudid along with 4 mg Zofran for initial management. Does have some CVA tenderness on her left side, suspect urinary tract infection. 06/29/20 13:27 The patient's labs are unremarkable for any sort of infectious process at this time. Urine to be sent for culture to make sure this is the case. Patient will be treated for muscle back spasms. Should be given a course of Norflex, and some [place] for pain management. Departure - Departure Time of Disposition: 13:28 Disposition: Home, Self-Care 01 Condition: Good Clinical Impression: Back pain Qualifiers: Back pain location: back pain in other location Chronicity: acute Qualified Code(s): M54.9 - Dorsalgia, unspecified - Discharge Information *PRESCRIPTION DRUG MONITORING PROGRAM REVIEWED*: Yes *COPY OF PRESCRIPTION DRUG MONITORING REPORT IN PATIENT LATOSHA: No Prescriptions: Acetaminophen/HYDROcodone [[place] 325-5 MG] 1 tab PO Q6H PRN #15 tablet PRN Reason: Pain Orphenadrine [Norflex] 100 mg PO BID PRN #20 tab PRN Reason: Spasms Instructions: Back Injury Prevention, [id number] Referrals: Do Saini MD [Primary Care Provider] - Forms: ED Department Discharge Additional Instructions: You have been evaluated in the ED for your back pain. Your labs demonstrated no sign of an obvious kidney infection at today's visit. Your urine was sent for culture for confirmation, you will be called in 24 to 48 hours if you should need a course of antibiotics. Please use ice/heat as tolerated to the affected area. You may take Tylenol 500 mg q6 hrs for pain relief. Please do so until you have a tolerable level of pain with activity. Do not exceed 4000mg Tylenol in a 24 hour time period. You were given a prescription for a strong pain medication, hydrocodone/acetaminophen 5/325 mg, please take 1 tab every 6 hours as needed for pain not relieved by Tylenol or ibuprofen alone. Please note this medication does contain Tylenol in it, so do not take more than 4000 mg in a 24- hour time span. These medications can be addictive, so please take as few as possible to achieve adequate pain control. These meds can also be quite constipating, recommend that you increase your oral fluid intake and take a stool softener like MiraLAX while taking these medications. Do not drive while taking this medication. Please return to ED if your symptoms should change or worsen. Sepsis Event Note (ED) - Evaluation Sepsis Screening Result: No Definite Risk - Focused Exam Vital Signs: Vital Signs Temp Pulse Resp BP Pulse Ox 06/29/20 13:54 75 20 108/72 100 06/29/20 11:31 97.6 F 83 26 H 117/75 100 - My Orders Last 24 Hours: My Active Orders 06/29/20 12:11 Peripheral IV Insertion Adult [OM.PC] Routine 06/29/20 12:54 CULTURE URINE [RM] Routine - Assessment/Plan Last 24 Hours: My Active Orders 06/29/20 12:11 Peripheral IV Insertion Adult [OM.PC] Routine 06/29/20 12:54 CULTURE URINE [RM] Routine
[2020-06-29] MEDS: Sodium Chloride 0.9% 10 ML Syringe FLUSH PRN ×2 (12:26→13:53)
[2020-06-29 13:57] VITALS: BP 108/72; PULSE 75
== END 2020-06-29 13:59 | disposition home or self-care (01) ==
LOC: JD.ED 11:14
DX: M54.5 Low back pain (principal); J44.9 Chronic obstructive pulmonary disease, unspecified; F41.9 Anxiety disorder, unspecified; F32.9 Major depressive disorder, single episode, unspecified; F17.210 Nicotine dependence, cigarettes, uncomplicated; Z88.1 Allergy status to other antibiotic agents; Z88.5 Allergy status to narcotic agent; Z88.6 Allergy status to analgesic agent; Z88.8 Allergy status to other drugs, medicaments and biological substances; Z88.2 Allergy status to sulfonamides; Z79.82 Long term (current) use of aspirin; Z79.899 Other long term (current) drug therapy
CPT/HCPCS: 36415; 80053; 81001; 85025; 87086; 96374; 96375; 96376; 99283; J1170; J2405; 99284

== ENCOUNTER 2020-07-18 21:27 | Emergency (ER) | payer MEDICARE, MEDICAID ==
[2020-07-18 21:37] VITALS: BP 110/74; PULSE 86
[2020-07-18] MEDS ORDERED: Sodium Chloride 0.9% 1,000 ML IV SCH (22:30)
--- NOTE | 2020-07-18 22:34 | EDM.PDOC ---
ED HPI GENERAL MEDICAL PROBLEM - General Chief Complaint: Respiratory Problem Stated Complaint: covid sob and pain Time Seen by Provider: 07/18/20 21:46 Source of Information: Reports: Patient History Limitations: Reports: No Limitations - History of Present Illness INITIAL COMMENTS - FREE TEXT/NARRATIVE: This is a 55-year-old female. She was diagnosed with Covid on the or 17 July but her symptoms started on July 14. She comes tonight because she feels like she is short of breath. She has a headache she is got a scratchy throat she is short of breath but no chest pain she hurts all over and ibuprofen does not help. She feels very fatigued. She thinks she got Covid from her friends because of the shortness of breath and the Covid positive she got afrai d. She is HIV positive and has some vague history of coronary artery disease. Headache Pain Score (Numeric/FACES): 9 Generalized Pain Score (Numeric/FACES): 8 - Related Data Allergies Allergy/AdvReac Type Severity Reaction Status Date / Time celecoxib [From Celebrex] Allergy Severe unknown Verified 07/18/20 21:41 ketorolac tromethamine Allergy Severe Rash Verified 07/18/20 21:41 [From Toradol] lisinopril Allergy Severe Other Verified 07/18/20 21:41 NSAIDS (Non-Steroidal Allergy Severe Chills Verified 07/18/20 21:41 Anti-Inflamma pantoprazole sodium Allergy Severe Other Verified 07/18/20 21:41 [From Protonix] Sulfa (Sulfonamide Allergy Severe unknown Verified 07/18/20 21:41 Antibiotics) sumatriptan [From Imitrex] Allergy Severe Rash Verified 07/18/20 21:41 sumatriptan succinate Allergy Severe Rash Verified 07/18/20 21:41 [From Imitrex] Home Meds: Home Meds Albuterol [Ventolin HFA] 2 puff INH Q6HR PRN 11/19/13 [History] Aspirin 81 mg PO DAILY 08/10/15 [History] ClonazePAM [KlonoPIN] 0.5 mg PO BID PRN 03/08/16 [History] Tribild 1 tab PO BEDTIME 06/08/16 [History] atorvaSTATin [Lipitor] 40 mg PO DAILY 06/08/16 [History] ARIPiprazole [Abilify] 5 mg PO DAILY 06/12/16 [History] Ondansetron [Zofran ODT] 4 mg PO Q8HR PRN #10 tab.dis 08/27/18 [Rx] Acetaminophen/HYDROcodone [[place] 325-5 MG] 1 tab PO Q6H PRN #15 tablet 06/29/20 [Rx] Orphenadrine [Norflex] 100 mg PO BID PRN #20 tab 06/29/20 [Rx] PARoxetine HCl [Paxil] 1 tab PO DAILY 06/29/20 [History] hydrOXYzine HCL [Hydroxyzine HCl] 1 tab PO DAILY PRN 06/29/20 [History] Past Medical History HEENT History: Reports: Impaired Vision Cardiovascular History: Reports: Stents Other Cardiovascular History: 4 years ago Respiratory History: Reports: COPD Gastrointestinal History: Reports: Diverticulosis Other Gastrointestinal History: gastroparesis Genitourinary History: Reports: Other (See Below) Musculoskeletal History: Reports: Fibromyalgia Other Musculoskeletal History: neuropathy in both feet Neurological History: Reports: Neuropathy, Peripheral Other Neuro History: Fibromyalsia Psychiatric History: Reports: Anxiety, Depression Endocrine/Metabolic History: Reports: None Hematologic History: Reports: None Immunologic History: Reports: HIV Oncologic (Cancer) History: Reports: None Dermatologic History: Reports: None - Infectious Disease History Infectious Disease History: Reports: HIV-Human Immunodeficiency Virus - Past Surgical History HEENT Surgical History: Reports: Adenoidectomy, Tonsillectomy Cardiovascular Surgical History: Reports: Coronary Artery Stent, Other (See Below) Other Cardiovascular Surgeries/Procedures: 2 angiograms GI Surgical History: Reports: Cholecystectomy Female Surgical History: Reports: Hysterectomy, Other (See Below) Other Female Surgeries/Procedures: bladder sling Social & Family History - Family History Family Medical History: No Pertinent Family History Cardiac: Reports: CAD, Hypertension - Tobacco Use Tobacco Use Status *Q: Current Every Day Tobacco User Years of Tobacco use: 20 Packs/Tins Daily: 0.4 - Caffeine Use Caffeine Use: Reports: Coffee, Soda, Tea - Recreational Drug Use Recreational Drug Use: Yes Drug Use in Last 12 Months: Yes Recreational Drug Type: Reports: Marijuana/Hashish Other Recreational Drug Type: daily - Living Situation & Occupation Living situation: Reports: Single Occupation: Unemployed ED ROS GENERAL - Review of Systems Review Of Systems: See Below Constitutional: Reports: Weakness, Fatigue HEENT: Reports: Other (Scratchy throat) Respiratory: Reports: Shortness of Breath, Cough. Denies: Wheezing, Sputum Cardiovascular: Denies: Chest Pain Endocrine: Reports: Fatigue GI/Abdominal: Reports: Nausea, Vomiting. Denies: Abdominal Pain, Diarrhea : Reports: No Symptoms Musculoskeletal: Reports: Other (Myalgias all over her body) Skin: Reports: No Symptoms Neurological: Reports: Headache Psychiatric: Reports: Anxiety ED EXAM, GENERAL - Physical Exam Exam: See Below Exam Limited By: No Limitations General Appearance: Alert, WD/WN, No Apparent Distress Eye Exam: Bilateral Eye: Normal Inspection Ears: Normal External Exam, Normal Canal, Normal TMs Nose: Normal Inspection Throat/Mouth: Normal Lips, Normal Oropharynx, Normal Voice, No Airway Compromise, Other (Mucous membranes are tacky) Head: Normocephalic Neck: Supple Respiratory/Chest: No Respiratory Distress, Lungs Clear, Normal Breath Sounds. No: Rales, Rhonchi, Wheezing Cardiovascular: Regular Rate, Rhythm, No Murmur GI/Abdominal: Soft, Non-Tender Extremities: Normal Inspection, Normal Range of Motion. No: Pedal Edema Neurological: Alert, Oriented Psychiatric: Anxious Skin Exam: Warm, Dry Course - Vital Signs Last Recorded V/S: Last Vital Signs Temp 97.3 F 07/18/20 21:35 Pulse 86 07/18/20 21:35 Resp 20 07/18/20 21:35 BP 110/74 07/18/20 21:35 Pulse Ox 99 07/18/20 21:35 - Orders/Labs/Meds Orders: Active Orders 24 hr Category Date Time Status CXR [Chest 1V Frontal] [CR] Stat Exams 07/18/20 22:30 Taken Sodium Chloride 0.9% [Normal Saline] 1,000 ml Med 07/18/20 22:30 Active IV ASDIRECTED Medication Orders Sodium Chloride (Normal Saline) 1,000 mls @ 1,000 mls/hr IV ASDIRECTED IVET Last Admin: 07/18/20 22:44 Dose: 1,000 mls/hr Documented by: SLOAN Labs: Laboratory Tests 07/18/20 07/18/20 07/18/20 Range/Units 22:46 22:46 22:46 WBC 3.69 L (3.98-10.04) K/mm3 RBC 4.12 (3.98-5.22) M/mm3 Hgb 12.3 (11.2-15.7) gm/dl Hct 39.1 (34.1-44.9) % MCV 94.9 H (79.4-94.8) fl MCH 29.9 (25.6-32.2) pg MCHC 31.5 L (32.2-35.5) g/dl RDW Std Deviation 48.6 H (36.4-46.3) fL Plt Count 188 (182-369) K/mm3 MPV 8.5 L (9.4-12.3) fl Neut % (Auto) 43.1 (34.0-71.1) % Lymph % (Auto) 43.4 (19.3-51.7) % [place] % (Auto) 12.2 (4.7-12.5) % Eos % (Auto) 0.5 L (0.7-5.8) Baso % (Auto) 0.3 (0.1-1.2) % Neut # (Auto) 1.59 (1.56-6.13) K/mm3 Lymph # (Auto) 1.60 (1.18-3.74) K/mm3 [place] # (Auto) 0.45 H (0.24-0.36) K/mm3 Eos # (Auto) 0.02 L (0.04-0.36) K/mm3 Baso # (Auto) 0.01 (0.01-0.08) K/mm3 Sodium 139 (136-145) mEq/L Potassium 3.4 L (3.5-5.1) mEq/L Chloride 103 (98-107) mEq/L Carbon Dioxide 28 (21-32) mEq/L Anion Gap 11.4 (5-15) BUN 12 (7-18) mg/dL Creatinine 0.9 (0.55-1.02) mg/dL Est Cr Clr Drug Dosing 57.74 mL/min Estimated GFR (MDRD) > 60 (>60) mL/min BUN/Creatinine Ratio 13.3 L (14-18) Glucose 117 H (74-106) mg/dL Calcium 8.6 (8.5-10.1) mg/dL Ferritin 77 (8-252) ng/ml Total Bilirubin 0.2 (0.2-1.0) mg/dL AST 17 (15-37) U/L ALT 24 (14-59) U/L Alkaline Phosphatase 104 (46-116) U/L Lactate Dehydrogenase 148 (81-234) U/L C-Reactive Protein 0.5 (<1.0) mg/dL Total Protein 7.0 (6.4-8.2) g/dl Albumin 3.4 (3.4-5.0) g/dl Globulin 3.6 gm/dL Albumin/Globulin Ratio 0.9 L (1-2) Meds: Medications Generic Name Dose Route Start Last Admin Trade Name Freq PRN Reason Stop Dose Admin Sodium Chloride 1,000 mls @ 1,000 mls/hr 07/18/20 22:30 07/18/20 22:44 Normal Saline IV 1,000 mls/hr ASDIRECTED IVET Administration - Radiology Interpretation Free Text/Narrative:: Chest x-ray does not show any acute changes. - Re-Assessments/Exams Free Text/Narrative Re-Assessment/Exam: 07/18/20 23:54 Spoke to the patient regarding her chest x-ray findings that there are no Covid changes. I also spoke to her about her CBC that was normal and her chemistries the ferritin LDH C-reactive protein were all normal. 07/19/20 00:57 And is feeling somewhat better after the fluids. Encouraged her to call her family doctor on Tuesday to get a pulse oximeter to be used at home. Departure - Departure Time of Disposition: 00:58 Disposition: Home, Self-Care 01 Condition: Fair Clinical Impression: Lab test positive for detection of COVID-19 virus, Shortness of breath, Myalgia - Discharge Information *PRESCRIPTION DRUG MONITORING PROGRAM REVIEWED*: Not Applicable *COPY OF PRESCRIPTION DRUG MONITORING REPORT IN PATIENT LATOSHA: Not Applicable Instructions: COVID-19 Frequently Asked Questions Referrals: Do Saini MD [Primary Care Provider] - Forms: ED Department Discharge Additional Instructions: Continue to drink lots of fluids to stay well-hydrated, you may alternate Tylenol with ibuprofen every 3 hours to help with the aches and the pains, follow-up with Dr. Saini by calling her on Tuesday about getting a pulse oximeter at home she can monitor your oxygen content, your lab results and your oxygen were very good in the ER and there was no Covid lung changes on your chest x-ray, return to the ER if needed Sepsis Event Note (ED) - Evaluation Sepsis Screening Result: No Definite Risk - Focused Exam Vital Signs: Vital Signs Temp Pulse Resp BP Pulse Ox 07/18/20 21:35 97.3 F 86 20 110/74 99 - My Orders Last 24 Hours: My Active Orders 07/18/20 22:30 CXR [Chest 1V Frontal] [CR] Stat Sodium Chloride 0.9% [Normal Saline] 1,000 ml IV ASDIRECTED - Assessment/Plan Last 24 Hours: My Active Orders 07/18/20 22:30 CXR [Chest 1V Frontal] [CR] Stat Sodium Chloride 0.9% [Normal Saline] 1,000 ml IV ASDIRECTED
--- NOTE | 2020-07-19 09:45 | CR ---
Chest: Portable view of the chest was obtained. Comparison: Previous chest x-ray of is available. Findings: Heart and mediastinum: Heart size and mediastinum are within normal limits for portable technique. No mediastinal mass is seen. Lungs: Lungs are clear with no acute parenchymal process. No pleural thickening is seen. Osseous: No discrete osseous finding is seen. Impression: 1. Nothing acute is seen on portable chest x-ray. 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
== END 2020-07-19 01:12 | disposition home or self-care (01) ==
LOC: JD.ED 21:27
DX: U07.1 COVID-19 (principal); J44.9 Chronic obstructive pulmonary disease, unspecified; F41.9 Anxiety disorder, unspecified; F32.9 Major depressive disorder, single episode, unspecified; B20 Human immunodeficiency virus [HIV] disease; F17.210 Nicotine dependence, cigarettes, uncomplicated; Z88.1 Allergy status to other antibiotic agents; Z88.6 Allergy status to analgesic agent; Z88.8 Allergy status to other drugs, medicaments and biological substances; Z88.2 Allergy status to sulfonamides; Z79.82 Long term (current) use of aspirin; Z79.899 Other long term (current) drug therapy; Z90.710 Acquired absence of both cervix and uterus; Z90.49 Acquired absence of other specified parts of digestive tract
CPT/HCPCS: 36415; 71045; 71045-26; 80053; 82728; 83615; 85025; 86140; 99283; 99285-25; J7030

== ENCOUNTER 2020-07-30 13:59 | Emergency (ER) | payer MEDICARE, MEDICAID ==
[2020-07-30 14:14] VITALS: BP 158/97; PULSE 77
[2020-07-30] MEDS ORDERED: Ondansetron 4 MG/2 ML SDV IVPUSH ONE (14:41)
[2020-07-30] MEDS ORDERED: LORazepam 2 MG/ML SDV IVPUSH ONE (14:41)
[2020-07-30] MEDS ORDERED: Sodium Chloride 0.9% 10 ML Syringe FLUSH PRN (14:41)
[2020-07-30] MEDS ORDERED: Sodium Chloride 0.9% 1,000 ML IV ONE (14:42)
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
== END 2020-07-30 16:28 | disposition home or self-care (01) ==
LOC: JD.ED 13:59
DX: E86.0 Dehydration (principal); F41.9 Anxiety disorder, unspecified; J44.9 Chronic obstructive pulmonary disease, unspecified; F32.9 Major depressive disorder, single episode, unspecified; F17.210 Nicotine dependence, cigarettes, uncomplicated; Z88.1 Allergy status to other antibiotic agents; Z88.5 Allergy status to narcotic agent; Z88.8 Allergy status to other drugs, medicaments and biological substances; Z88.6 Allergy status to analgesic agent; Z88.2 Allergy status to sulfonamides; Z79.82 Long term (current) use of aspirin; Z79.899 Other long term (current) drug therapy
CPT/HCPCS: 36415; 80053; 85025; 96374; 96375; 99284; J2060; J2405; J7030

== ENCOUNTER 2020-09-13 21:11 | Emergency (ER) | payer MEDICARE, MEDICAID ==
[2020-09-13 21:34] VITALS: BP 116/76; PULSE 80
[2020-09-13] MEDS ORDERED: Sodium Chloride 0.9% 500 ML IV ONE (23:12)
[2020-09-13] MEDS ORDERED: Ondansetron 4 MG/2 ML SDV IVPUSH ONE (23:12)
[2020-09-13] MEDS ORDERED: HYDROmorphone 0.5 MG/0.5 ML Syringe IVPUSH ONE (23:12)
[2020-09-13] MEDS ORDERED: Sodium Chloride 0.9% 1,000 ML IV SCH (23:15)
--- NOTE | 2020-09-13 23:28 | EDM.PDOC ---
ED HPI GENERAL MEDICAL PROBLEM - General Chief Complaint: Abdominal Pain Stated Complaint: HERNIA Time Seen by Provider: 09/13/20 23:17 - History of Present Illness INITIAL COMMENTS - FREE TEXT/NARRATIVE: 55-year-old female presents the emergency room with what she thinks is a recurrent umbilical hernia. About 5 or 6 years ago this was first repaired in [place] it was then repaired again at [facility] in [place] and now she thinks it has reoccurred. Patient has some nausea no vomiting no fevers or chills she is passing gas and having bowel movements. Albeit they are little on the firm side. Patient denies any other complaints at this time however this does get quite uncomfortable at times. 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: Other (see below) Other Treatments OFFICE ELECTRICIAN: tylenol Abdomen Pain Score (Numeric/FACES): 7 - Related Data Allergies Allergy/AdvReac Type Severity Reaction Status Date / Time celecoxib [From Celebrex] Allergy Severe unknown Verified 07/30/20 14:05 ketorolac tromethamine Allergy Severe Rash Verified 07/30/20 14:05 [From Toradol] lisinopril Allergy Severe Other Verified 07/30/20 14:05 NSAIDS (Non-Steroidal Allergy Severe Chills Verified 07/30/20 14:05 Anti-Inflamma pantoprazole sodium Allergy Severe Other Verified 07/30/20 14:05 [From Protonix] Sulfa (Sulfonamide Allergy Severe unknown Verified 07/30/20 14:05 Antibiotics) sumatriptan [From Imitrex] Allergy Severe Rash Verified 07/30/20 14:05 sumatriptan succinate Allergy Severe Rash Verified 07/30/20 14:05 [From Imitrex] Home Meds: Home Meds Albuterol [Ventolin HFA] 2 puff INH Q6HR PRN 11/19/13 [History] Aspirin 81 mg PO DAILY 08/10/15 [History] atorvaSTATin [Lipitor] 40 mg PO DAILY 06/08/16 [History] ARIPiprazole [Abilify] 5 mg PO DAILY 06/12/16 [History] Orphenadrine [Norflex] 100 mg PO BID PRN #20 tab 06/29/20 [Rx] PARoxetine HCl [Paxil] 1 tab PO DAILY 06/29/20 [History] hydrOXYzine HCL [Hydroxyzine HCl] 1 tab PO DAILY PRN 06/29/20 [History] LORazepam [Ativan] 1 mg PO TID PRN #21 tab 07/30/20 [Rx] Ondansetron [Zofran ODT] 4 mg PO Q8HR PRN #10 tab.dis 07/30/20 [Rx] Elviteg/Cob/Emtri/Tenofo Disop [Stribild Tablet] 1 tab PO BEDTIME 09/13/20 [History] Past Medical History HEENT History: Reports: Impaired Vision Cardiovascular History: Reports: Stents Other Cardiovascular History: 4 years ago Respiratory History: Reports: COPD Gastrointestinal History: Reports: Diverticulosis Other Gastrointestinal History: gastroparesis Genitourinary History: Reports: Other (See Below) 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: Musculoskeletal History: Reports: Fibromyalgia, Other (See Below) Other Musculoskeletal History: neuropathy in both feet Neurological History: Reports: Neuropathy, Peripheral Other Neuro History: Fibromyalgia Psychiatric History: Reports: Anxiety, Depression, PTSD Endocrine/Metabolic History: Reports: None Hematologic History: Reports: None Immunologic History: Reports: HIV Oncologic (Cancer) History: Reports: None Dermatologic History: Reports: None - Infectious Disease History Infectious Disease History: Reports: HIV-Human Immunodeficiency Virus, Novel Coronavirus - Past Surgical History Head Surgeries/Procedures: Reports: None HEENT Surgical History: Reports: Adenoidectomy, Tonsillectomy Cardiovascular Surgical History: Reports: Coronary Artery Stent, Other (See Below) Other Cardiovascular Surgeries/Procedures: 2 angiograms GI Surgical History: Reports: Cholecystectomy Female Surgical History: Reports: Hysterectomy, Other (See Below) Other Female Surgeries/Procedures: bladder sling Social & Family History - Family History Family Medical History: No Pertinent Family History Cardiac: Reports: CAD, Hypertension - Tobacco Use Tobacco Use Status *Q: Current Every Day Tobacco User Years of Tobacco use: 30 Packs/Tins Daily: 0.3 - Caffeine Use Caffeine Use: Reports: Coffee, Soda, Tea - Recreational Drug Use Recreational Drug Type: Reports: Marijuana/Hashish - Living Situation & Occupation Living situation: Reports: Single Occupation: Unemployed ED ROS GENERAL - Review of Systems Review Of Systems: See Below Constitutional: Reports: No Symptoms, Chills. Denies: Fever HEENT: Reports: No Symptoms Respiratory: Reports: No Symptoms Cardiovascular: Reports: No Symptoms Endocrine: Reports: No Symptoms GI/Abdominal: Reports: No Symptoms : Reports: No Symptoms Musculoskeletal: Reports: No Symptoms Neurological: Reports: No Symptoms ED EXAM, GENERAL - Physical Exam Exam: See Below Exam Limited By: No Limitations General Appearance: Alert, No Apparent Distress Head: Atraumatic, Normocephalic Neck: Normal Inspection, Supple, Non-Tender, Full Range of Motion Respiratory/Chest: No Respiratory Distress, Lungs Clear, Normal Breath Sounds Cardiovascular: Regular Rate, Rhythm, No Edema, No Murmur GI/Abdominal: Normal Bowel Sounds, Soft, Other (Superior to the umbilicus she has an incision and adjacent to this palpates what could be small hernia no othe r significant abnormalities noted on abdominal exam) Back Exam: Normal Inspection. No: CVA Tenderness (L), CVA Tenderness (R) Neurological: Alert, Oriented, Normal Cognition Course - Vital Signs Last Recorded V/S: Last Vital Signs Temp 36.6 C 09/13/20 21:32 Pulse 80 09/13/20 21:32 Resp 20 09/13/20 21:32 BP 116/76 09/13/20 21:32 Pulse Ox 95 09/13/20 21:32 - Orders/Labs/Meds Orders: Active Orders 24 hr Category Date Time Status Abdomen Pelvis w Cont [CT] Stat Exams 09/13/20 23:11 Taken UA RFX HUONG AND CULT IF INDIC [URIN] Stat Lab 09/13/20 23:09 Ordered Sodium Chloride 0.9% [Normal Saline] 1,000 ml Med 09/13/20 23:15 Active IV ASDIRECTED Sodium Chloride 0.9% [Normal Saline] 100 ml Med 09/14/20 01:15 Active IV ASDIRECTED Medication Orders Sodium Chloride (Normal Saline) 1,000 mls @ 125 mls/hr IV ASDIRECTED IVET Last Admin: 09/14/20 00:09 Dose: 125 mls/hr Documented by: CYNTHIA Sodium Chloride (Normal Saline) 100 mls @ 60 drops/min IV ASDIRECTED IVET Last Admin: 09/14/20 01:06 Dose: 60 drops/min Documented by: EVERETT Labs: Laboratory Tests 09/13/20 09/13/20 Range/Units 23:20 23:20 WBC 7.11 (3.98-10.04) K/mm3 RBC 3.92 L (3.98-5.22) M/mm3 Hgb 11.8 (11.2-15.7) gm/dl Hct 36.8 (34.1-44.9) % MCV 93.9 (79.4-94.8) fl MCH 30.1 (25.6-32.2) pg MCHC 32.1 L (32.2-35.5) g/dl RDW Std Deviation 48.2 H (36.4-46.3) fL Plt Count 207 (182-369) K/mm3 MPV 8.0 L (9.4-12.3) fl Neut % (Auto) 52.0 (34.0-71.1) % Lymph % (Auto) 36.0 (19.3-51.7) % [place] % (Auto) 8.9 (4.7-12.5) % Eos % (Auto) 2.4 (0.7-5.8) Baso % (Auto) 0.3 (0.1-1.2) % Neut # (Auto) 3.70 (1.56-6.13) K/mm3 Lymph # (Auto) 2.56 (1.18-3.74) K/mm3 [place] # (Auto) 0.63 H (0.24-0.36) K/mm3 Eos # (Auto) 0.17 (0.04-0.36) K/mm3 Baso # (Auto) 0.02 (0.01-0.08) K/mm3 Sodium 143 (136-145) mEq/L Potassium 3.2 L (3.5-5.1) mEq/L Chloride 105 (98-107) mEq/L Carbon Dioxide 26 (21-32) mEq/L Anion Gap 15.2 H (5-15) BUN 11 (7-18) mg/dL Creatinine 0.8 (0.55-1.02) mg/dL Est Cr Clr Drug Dosing 64.95 mL/min Estimated GFR (MDRD) > 60 (>60) mL/min BUN/Creatinine Ratio 13.8 L (14-18) Glucose 132 H (74-106) mg/dL Calcium 8.7 (8.5-10.1) mg/dL Total Bilirubin 0.3 (0.2-1.0) mg/dL AST 19 (15-37) U/L ALT 27 (14-59) U/L Alkaline Phosphatase 119 H (46-116) U/L Total Protein 7.0 (6.4-8.2) g/dl Albumin 3.6 (3.4-5.0) g/dl Globulin 3.4 gm/dL Albumin/Globulin Ratio 1.1 (1-2) Lipase 127 (73-393) U/L Meds: Medications Generic Name Dose Route Start Last Admin Trade Name Freq PRN Reason Stop Dose Admin Sodium Chloride 1,000 mls @ 125 mls/hr 09/13/20 23:15 09/14/20 00:09 Normal Saline IV 125 mls/hr ASDIRECTED IVET Administration Sodium Chloride 100 mls @ 60 drops/min 09/14/20 01:15 09/14/20 01:06 Normal Saline IV 60 drops/min ASDIRECTED IVET Administration Discontinued Medications Generic Name Dose Route Start Last Admin Trade Name Freq PRN Reason Stop Dose Admin Hydromorphone HCl 0.5 mg 09/13/20 23:12 09/13/20 23:26 Dilaudid IVPUSH 09/13/20 23:13 0.5 mg ONETIME ONE Administration Sodium Chloride 500 mls @ 999 mls/hr 09/13/20 23:12 09/13/20 23:25 Normal Saline IV 09/13/20 23:42 999 mls/hr .BOLUS ONE Administration Iopamidol 100 ml 09/14/20 01:05 09/14/20 01:06 Isovue-300 (61%) IVPUSH 09/14/20 01:06 100 ml ONETIME ONE Administration Ondansetron HCl 4 mg 09/13/20 23:12 09/13/20 23:26 Zofran IVPUSH 09/13/20 23:13 4 mg ONETIME ONE Administration - Re-Assessments/Exams Free Text/Narrative Re-Assessment/Exam: 09/14/20 01:42 Evaluation shows multiple midline hernias developing. These contain mesenteric fat no bowel. At this point we will have the patient follow-up with the on-call surgeon early this next week. Departure - Departure Time of Disposition: 01:43 Disposition: Home, Self-Care 01 Clinical Impression: Ventral hernia without obstruction or gangrene - Discharge Information Referrals: Do Saini MD [Primary Care Provider] - Esther Fierro MD [Physician] - Forms: ED Department Discharge Additional Instructions: Return to the emergency room with any questions problems or worsening symptoms. Return to the emergency room if you develop any nausea vomiting significantly worsening abdominal pain. Use Tylenol as needed for discomfort. Follow-up with Dr. Fierro next week. Sepsis Event Note (ED) - Evaluation Sepsis Screening Result: No Definite Risk - Focused Exam Vital Signs: Vital Signs Temp Pulse Resp BP Pulse Ox 09/13/20 21:32 36.6 C 80 20 116/76 95 - My Orders Last 24 Hours: My Active Orders 09/13/20 23:09 UA RFX HUONG AND CULT IF INDIC [URIN] Stat 09/13/20 23:11 Abdomen Pelvis w Cont [CT] Stat 09/13/20 23:15 Sodium Chloride 0.9% [Normal Saline] 1,000 ml IV ASDIRECTED 09/14/20 01:15 Sodium Chloride 0.9% [Normal Saline] 100 ml IV ASDIRECTED - Assessment/Plan Last 24 Hours: My Active Orders 09/13/20 23:09 UA RFX HUONG AND CULT IF INDIC [URIN] Stat 09/13/20 23:11 Abdomen Pelvis w Cont [CT] Stat 09/13/20 23:15 Sodium Chloride 0.9% [Normal Saline] 1,000 ml IV ASDIRECTED 09/14/20 01:15 Sodium Chloride 0.9% [Normal Saline] 100 ml IV ASDIRECTED
[2020-09-14] MEDS ORDERED: Iopamidol 612 MG/ML 100 ML Bottle IVPUSH ONE (01:05)
[2020-09-14] MEDS ORDERED: Sodium Chloride 0.9% 100 ML IV SCH (01:15)
--- NOTE | 2020-09-14 14:27 | CT ---
CT abdomen and pelvis Technique: Multiple axial sections were obtained from above the dome of the diaphragm inferiorly through the pubic symphysis. Intravenous contrast was utilized. Small amount of oral contrast is seen which remains mostly within the stomach and duodenum. Delayed images were also obtained. Comparison: Prior CT abdomen and pelvis exam of 09/18/15. Findings: On the sagittal view there are approximately three fat containing anterior abdominal wall hernias. One is located anterior to the left lobe of the liver. Another fat containing hernia is seen above the umbilicus, the third is noted below the umbilicus. There is fluid being seen within the umbilical fat which on the sagittal view measures 5.9 cm in greatest length. This is either due to cellulitis or other edema. This is an interval change from prior exam. Visualized lung bases show nothing acute. Liver shows no focal parenchymal abnormality. Spleen appears within normal limits. Adrenal glands show no nodule. Surgical clips are seen from previous cholecystectomy. Pancreas shows no discrete abnormality. Kidneys show symmetric contrast enhancement with no hydronephrosis or mass. Aorta shows mild atherosclerotic calcification with no aneurysm. No retroperitoneal adenopathy or mesenteric abnormalities are appreciated. Surgical material is seen within the lower right anterior abdominal wall most likely representing previous hernia surgery. No pelvic mass or adenopathy is appreciated. Appendix is visualized and is normal in size. Bone window settings were reviewed which show nothing acute for the patient's age. Impression: 1. Three fat containing anterior abdominal wall hernias. 2. Fluid in the area of the umbilical fat which may represent cellulitis or post surgical hematoma if patient has history of such. 3. Other findings as noted above which are chronic. Diagnostic code #3 I agree with preliminary report issued by 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
== END 2020-09-14 02:30 | disposition home or self-care (01) ==
LOC: JD.ED 21:11
DX: K43.9 Ventral hernia without obstruction or gangrene (principal); J44.9 Chronic obstructive pulmonary disease, unspecified; G62.9 Polyneuropathy, unspecified; Z79.82 Long term (current) use of aspirin; Z79.899 Other long term (current) drug therapy; Z88.8 Allergy status to other drugs, medicaments and biological substances; Z88.6 Allergy status to analgesic agent; Z88.2 Allergy status to sulfonamides; Z72.0 Tobacco use
CPT/HCPCS: 36415; 74177; 80053; 83690; 85025; 96374; 96375; 99284; J2405; J7030; Q9967; J1170

== ENCOUNTER 2020-10-16 11:16 | Emergency (ER) | payer MEDICARE, MEDICAID ==
[2020-10-16] MEDS ORDERED: HYDROmorphone 0.5 MG/0.5 ML Syringe IM ONE (12:45)
--- NOTE | 2020-10-16 13:00 | EDM.PDOC ---
ED HPI GENERAL MEDICAL PROBLEM - General Chief Complaint: Lower Extremity Injury/Pain Stated Complaint: RT KNEE PAIN Time Seen by Provider: 10/16/20 11:46 Source of Information: Reports: Patient History Limitations: Reports: No Limitations - History of Present Illness INITIAL COMMENTS - FREE TEXT/NARRATIVE: 55-year-old female presents to the emergency department today with progressively worse right knee pain over the past 3 days. The patient states that about 3 days ago she developed right knee pain mid garg which radiated laterally and up the posterior knee. She states that she was seen in [facility] 3 days ago and they did labs on her. She states they told her she had an elevated D-dimer however they did not do any further interventions. She was then given tiz anidine. She states that over the past couple of days she has been taking the tizanidine alternating with Tylenol and Aleve and the pain has almost become unbearable. She states that it is difficult to ambulate and she is worried that her knee will give out. She denies any shortness of breath, cough, recent fever or chills associated with this. Of note she is 1/2 pack a day smoker x25 years. Right Knee Pain Score (Numeric/FACES): 10 - Related Data Allergies Allergy/AdvReac Type Severity Reaction Status Date / Time celecoxib [From Celebrex] Allergy Severe unknown Verified 07/30/20 14:05 ketorolac tromethamine Allergy Severe Rash Verified 07/30/20 14:05 [From Toradol] lisinopril Allergy Severe Other Verified 07/30/20 14:05 NSAIDS (Non-Steroidal Allergy Severe Chills Verified 07/30/20 14:05 Anti-Inflamma pantoprazole sodium Allergy Severe Other Verified 07/30/20 14:05 [From Protonix] Sulfa (Sulfonamide Allergy Severe unknown Verified 07/30/20 14:05 Antibiotics) sumatriptan [From Imitrex] Allergy Severe Rash Verified 07/30/20 14:05 sumatriptan succinate Allergy Severe Rash Verified 07/30/20 14:05 [From Imitrex] Home Meds: Home Meds Albuterol [Ventolin HFA] 2 puff INH Q6HR PRN 11/19/13 [History] Aspirin 325 mg PO DAILY 08/10/15 [History] atorvaSTATin [Lipitor] 40 mg PO DAILY 06/08/16 [History] Orphenadrine [Norflex] 100 mg PO BID PRN #20 tab 06/29/20 [Rx] PARoxetine HCl [Paxil] 1 tab PO DAILY 06/29/20 [History] hydrOXYzine HCL [Hydroxyzine HCl] 1 tab PO DAILY PRN 06/29/20 [History] LORazepam [Ativan] 1 mg PO TID PRN #21 tab 07/30/20 [Rx] Ondansetron [Zofran ODT] 4 mg PO Q8HR PRN #10 tab.dis 07/30/20 [Rx] Elviteg/Cob/Emtri/Tenofo Disop [Stribild Tablet] 1 tab PO BEDTIME 09/13/20 [History] QUEtiapine Fumarate [Seroquel] 50 mg PO BEDTIME 10/16/20 [History] oxyCODONE HCl/Acetaminophen [Percocet 5-325 mg Tablet] 1 each PO Q6H PRN #10 tablet 10/16/20 [Rx] Past Medical History HEENT History: Reports: Impaired Vision Cardiovascular History: Reports: Stents Other Cardiovascular History: 4 years ago Respiratory History: Reports: COPD Gastrointestinal History: Reports: Diverticulosis Other Gastrointestinal History: gastroparesis Genitourinary History: Reports: Other (See Below) 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: Musculoskeletal History: Reports: Fibromyalgia, Other (See Below) Other Musculoskeletal History: neuropathy in both feet Neurological History: Reports: Neuropathy, Peripheral Other Neuro History: Fibromyalgia Psychiatric History: Reports: Anxiety, Depression, PTSD Endocrine/Metabolic History: Reports: None Hematologic History: Reports: None Immunologic History: Reports: HIV Oncologic (Cancer) History: Reports: None Dermatologic History: Reports: None - Infectious Disease History Infectious Disease History: Reports: HIV-Human Immunodeficiency Virus, Novel Coronavirus - Past Surgical History Head Surgeries/Procedures: Reports: None HEENT Surgical History: Reports: Adenoidectomy, Tonsillectomy Cardiovascular Surgical History: Reports: Coronary Artery Stent, Other (See Below) Other Cardiovascular Surgeries/Procedures: 2 angiograms GI Surgical History: Reports: Cholecystectomy Female Surgical History: Reports: Hysterectomy, Other (See Below) Other Female Surgeries/Procedures: bladder sling Social & Family History - Family History Family Medical History: No Pertinent Family History Cardiac: Reports: CAD, Hypertension - Tobacco Use Tobacco Use Status *Q: Current Every Day Tobacco User Years of Tobacco use: 20 Packs/Tins Daily: 0.5 - Caffeine Use Caffeine Use: Reports: Coffee, Soda, Tea - Recreational Drug Use Recreational Drug Type: Reports: Marijuana/Hashish Recreational Drug Use Frequency: Weekly - Living Situation & Occupation Living situation: Reports: Single Occupation: Unemployed Review of Systems - Review of Systems Review Of Systems: See Below Constitutional: Denies: Chills, Diaphoresis, Fever Eyes: Reports: No Symptoms Ears: Reports: No Symptoms Nose: Reports: No Symptoms Mouth/Throat: Reports: No Symptoms Respiratory: Reports: No Symptoms. Denies: Shortness of Breath, Pleuritic Chest Pain, Cough Cardiovascular: Reports: No Symptoms. Denies: Chest Pain, Edema, Lightheadedness, Palpitations GI/Abdominal: Reports: No Symptoms Genitourinary: Reports: No Symptoms Musculoskeletal: Reports: Leg Pain (right leg pain) Skin: Reports: No Symptoms Neurological: Reports: No Symptoms Psychiatric: Reports: No Symptoms ED EXAM, GENERAL - Physical Exam Exam: See Below Exam Limited By: No Limitations General Appearance: Alert, WD/WN, No Apparent Distress Eye Exam: Bilateral Eye: PERRL Ears: Normal External Exam, Hearing Grossly Normal Nose: Normal Inspection Throat/Mouth: Normal Inspection, Normal Voice, No Airway Compromise Head: Atraumatic, Normocephalic Neck: Normal Inspection, Supple, Non-Tender, Full Range of Motion Respiratory/Chest: No Respiratory Distress, Lungs Clear, Normal Breath Sounds, No Accessory Muscle Use, Chest Non-Tender Cardiovascular: Normal Peripheral Pulses, Regular Rate, Rhythm, No Edema, No Murmur Peripheral Pulses: 2+: Dorsalis Pedis (L), Dorsalis Pedis (R) (Female) Exam: Deferred Rectal (Female) Exam: Deferred Back Exam: Normal Inspection, Full Range of Motion Extremities: Normal Inspection, Normal Range of Motion, No Pedal Edema, Normal Capillary Refill. No: Non-Tender (tenderness to the right popliteal area) Neurological: Alert, Oriented, Normal Cognition Psychiatric: Normal Affect, Normal Mood Skin Exam: Warm, Dry, Intact, Normal Color, No Rash Lymphatic: No Adenopathy Course - Vital Signs Text/Narrative:: 55-year-old female with complaints of pain to the upper third of her right garg which radiates to the back of her knee. Patient was recently seen and [facility] reports she had an elevated D-dimer however no further work-up was completed. She was given a prescription for tizanidine to take. She has been taking this alternating with Tylenol and ibuprofen however she states the pain has become significantly worse to the point she is scared to ambulate for fear her right knee will give out due to the pain. Upon assessment the patient has significant tenderness noted to the popliteal fossa. Pain radiates to right lateral one third of the upper portion of the garg. CMS is still positive to right lower extremity she denies any numbness or tingling. She denies any shortness of breath, cough, fever or chills. There is no erythema or edema noted to the right lower extremity. I have ordered labs and an ultrasound of the right lower extremity. Last Recorded V/S: Last Vital Signs Temp 97.7 F 10/16/20 11:48 Pulse 81 10/16/20 11:48 Resp 20 10/16/20 11:48 BP 118/77 10/16/20 11:48 Pulse Ox 100 10/16/20 11:48 - Orders/Labs/Meds Labs: Laboratory Tests 10/16/20 10/16/20 Range/Units 12:23 12:23 WBC 8.03 (3.98-10.04) K/mm3 RBC 3.92 L (3.98-5.22) M/mm3 Hgb 11.9 (11.2-15.7) gm/dl Hct 38.1 (34.1-44.9) % MCV 97.2 H D (79.4-94.8) fl MCH 30.4 (25.6-32.2) pg MCHC 31.2 L (32.2-35.5) g/dl RDW Std Deviation 50.1 H (36.4-46.3) fL Plt Count 230 (182-369) K/mm3 MPV 8.9 L (9.4-12.3) fl Neut % (Auto) 54.7 (34.0-71.1) % Lymph % (Auto) 32.4 (19.3-51.7) % [place] % (Auto) 9.6 (4.7-12.5) % Eos % (Auto) 1.6 (0.7-5.8) Baso % (Auto) 0.2 (0.1-1.2) % Neut # (Auto) 4.39 (1.56-6.13) K/mm3 Lymph # (Auto) 2.60 (1.18-3.74) K/mm3 [place] # (Auto) 0.77 H (0.24-0.36) K/mm3 Eos # (Auto) 0.13 (0.04-0.36) K/mm3 Baso # (Auto) 0.02 (0.01-0.08) K/mm3 Manual Slide Review Normal smear Sodium 142 (136-145) mEq/L Potassium 4.1 (3.5-5.1) mEq/L Chloride 105 (98-107) mEq/L Carbon Dioxide 29 (21-32) mEq/L Anion Gap 12.1 (5-15) BUN 16 (7-18) mg/dL Creatinine 0.9 (0.55-1.02) mg/dL Est Cr Clr Drug Dosing 57.74 mL/min Estimated GFR (MDRD) > 60 (>60) mL/min BUN/Creatinine Ratio 17.8 (14-18) Glucose 104 (74-106) mg/dL Calcium 9.1 (8.5-10.1) mg/dL Total Bilirubin 0.2 (0.2-1.0) mg/dL AST 15 (15-37) U/L ALT 24 (14-59) U/L Alkaline Phosphatase 147 H (46-116) U/L C-Reactive Protein 1.7 H* (<1.0) mg/dL Total Protein 7.6 (6.4-8.2) g/dl Albumin 3.7 (3.4-5.0) g/dl Globulin 3.9 gm/dL Albumin/Globulin Ratio 1.0 (1-2) Meds: Medications Discontinued Medications Generic Name Dose Route Start Last Admin Trade Name Freq PRN Reason Stop Dose Admin Hydromorphone HCl 0.5 mg 10/16/20 12:45 10/16/20 12:55 Dilaudid IM 10/16/20 12:46 0.5 mg ONETIME ONE Administration - Re-Assessments/Exams Free Text/Narrative Re-Assessment/Exam: 10/16/20 13:28 CBC is essentially unremarkable, chemistries are unremarkable other than an elevated alk phos of 147, C-reactive protein 1.7. Ultrasound of the right lower extremity radiologist impression: 1. No evidence of DVT within the right lower extremity or within the left common femoral vein. 10/16/20 13:41 Patient reports that her pain is better after receiving a dose of IM Dilaudid. She will be discharged to home with recommendations that she follow-up with her primary care provider. Departure - Departure Time of Disposition: 13:42 Disposition: Home, Self-Care 01 Condition: Good Clinical Impression: Right knee pain Qualifiers: Chronicity: acute Qualified Code(s): M25.561 - Pain in right knee - Discharge Information Prescriptions: oxyCODONE HCl/Acetaminophen [Percocet 5-325 mg Tablet] 1 each PO Q6H PRN #10 tablet PRN Reason: Pain (Moderate 4-6) Instructions: Acute Knee Pain, Adult Referrals: Do Saini MD [Primary Care Provider] - Forms: ED Department Discharge Additional Instructions: Were seen in the emergency department today with complaints of right knee pain that started about 3 days ago and gradually has gotten worse. He states that you were recently seen in [facility] with the same complaints. You stated that they did lab work and told you that you had an elevated D-dimer. Labs were completed today however I did not check your D-dimer as it likely remains elevated. You denied complaints of shortness of breath, cough, fever or chills. An ultrasound of the right leg was completed and you do not have a blood clot in your leg. You were given pain medication and you stated that this did help some. Recommend that you go home and take Tylenol 500 mg alternating with ibuprofen 600 mg every 4 hours for the next 48 hours. For more severe pain you may substitute 1 Percocet tab for the Tylenol. Also recommend trying ice alternating with heat 20 minutes at a time 3 times a day for comfort. Recommend that you follow-up with your primary care physician early next week. Should your condition worsen or change, do not hesitate to return to the emergency department. Sepsis Event Note (ED) - Evaluation Sepsis Screening Result: No Definite Risk - Focused Exam Vital Signs: Vital Signs Temp Pulse Resp BP Pulse Ox 10/16/20 11:48 97.7 F 81 20 118/77 100
--- NOTE | 2020-10-16 13:04 | US ---
Right lower extremity deep venous ultrasound: Duplex and color Doppler evaluation was obtained of the right common femoral, proximal greater saphenous, superficial femoral, popliteal, posterior tibial and peroneal veins. Left common femoral vein was also evaluated. Comparison: Prior right lower extremity deep venous ultrasound of 11/25/13. Findings: Normal phasic flow, augmentation and compression is seen. Impression: 1. No evidence of deep venous thrombosis within the right lower extremity or within the left common femoral vein. Diagnostic code #1
[2020-10-16 14:41] VITALS: BP 116/78; PULSE 79
== END 2020-10-16 14:00 | disposition home or self-care (01) ==
LOC: JD.ED 11:16
DX: M25.561 Pain in right knee (principal); J44.9 Chronic obstructive pulmonary disease, unspecified; G62.9 Polyneuropathy, unspecified; B20 Human immunodeficiency virus [HIV] disease; Z88.8 Allergy status to other drugs, medicaments and biological substances; Z88.6 Allergy status to analgesic agent; Z88.2 Allergy status to sulfonamides; Z79.82 Long term (current) use of aspirin; Z79.899 Other long term (current) drug therapy; F17.200 Nicotine dependence, unspecified, uncomplicated
CPT/HCPCS: 36415; 80053; 85025; 86140; 93971; 96372; 99284; J1170; 99283

== ENCOUNTER 2020-10-20 18:51 | Emergency (ER) | payer MEDICARE, MEDICAID ==
[2020-10-20 19:12] VITALS: BP 135/94; PULSE 89
--- NOTE | 2020-10-20 20:07 | EDM.PDOC ---
ED HPI GENERAL MEDICAL PROBLEM - General Chief Complaint: Respiratory Problem Stated Complaint: SORE THROAT SOB HEADACHE COUGH Time Seen by Provider: 10/20/20 19:32 Source of Information: Reports: Patient History Limitations: Reports: No Limitations - History of Present Illness INITIAL COMMENTS - FREE TEXT/NARRATIVE: Ms. Delgado is a pleasant 55-year-old woman who now presents the ED with numerous complaints, including feeling tired and sleepy, with right-sided chest tightness, back pain, a headache, lower extremity pain, nasal congestion, and a loss of smell, since approximately 10/17/2020. She states that she woke up last night feeling dyspneic. She also reports about a week of a scratchy throat and more than a week of itchy ears. No recent fever. The patient states that she was diagnosed with COVID-19 on 07/16 or 07/17/2020, and that her current symptoms are similar to the symptoms she had at that time. Here in the ED, the patient is found to be hemodynamically stable, afebrile, saturating 95% on room air. Prior to Tuesday, the patient denies having a recent fever, chills, sore throat, ear pain, nasal or sinus congestion, cough, dyspnea, chest pain, palpitations, nausea, vomiting, constipation, diarrhea, abdominal pain, urinary symptoms, recent weight gain or weight loss, recent bloody bowel movements or black bowel movements, recent joint aches, headaches, or rashes. The patient's PCP is Dr. Do Saini. Her Iridologist is Dr. Arcadio Ruiz. Her Bank Examiner is Dr. Michael Rey. Her Infectious Disease specialist is Dr. Sadi Burns. She does not recall the name of her Neurologist. She states that she already received an influenza vaccine this season. Headache Pain Score (Numeric/FACES): 8 - Related Data Allergies Allergy/AdvReac Type Severity Reaction Status Date / Time ketorolac tromethamine Allergy Intermediate Rash Verified 10/20/20 19:12 [From Toradol] sumatriptan [From Imitrex] Allergy Intermediate Rash Verified 10/20/20 19:12 sumatriptan succinate Allergy Intermediate Rash Verified 10/20/20 19:12 [From Imitrex] celecoxib [From Celebrex] Allergy Unknown unknown Verified 10/20/20 19:12 lisinopril Allergy Unknown Other Verified 10/20/20 19:12 pantoprazole sodium Allergy Unknown Other Verified 10/20/20 19:12 [From Protonix] Sulfa (Sulfonamide Allergy Unknown unknown Verified 10/20/20 19:12 Antibiotics) NSAIDS (Non-Steroidal AdvReac Mild Chills Verified 10/20/20 19:12 Anti-Inflamma Home Meds: Home Meds Albuterol [Ventolin HFA] 2 puff INH Q6HR PRN 11/19/13 [History] Aspirin 325 mg PO DAILY 08/10/15 [History] atorvaSTATin [Lipitor] 40 mg PO DAILY 06/08/16 [History] Orphenadrine [Norflex] 100 mg PO BID PRN #20 tab 06/29/20 [Rx] PARoxetine HCl [Paxil] 1 tab PO DAILY 06/29/20 [History] hydrOXYzine HCL [Hydroxyzine HCl] 1 tab PO DAILY PRN 06/29/20 [History] LORazepam [Ativan] 1 mg PO TID PRN #21 tab 07/30/20 [Rx] Ondansetron [Zofran ODT] 4 mg PO Q8HR PRN #10 tab.dis 07/30/20 [Rx] Elviteg/Cob/Emtri/Tenofo Disop [Stribild Tablet] 1 tab PO BEDTIME 09/13/20 [History] QUEtiapine Fumarate [Seroquel] 50 mg PO BEDTIME 10/16/20 [History] oxyCODONE HCl/Acetaminophen [Percocet 5-325 mg Tablet] 1 each PO Q6H PRN #10 tablet 10/16/20 [Rx] Past Medical History HEENT History: Reports: Impaired Vision Cardiovascular History: Reports: CAD Respiratory History: Reports: COPD (mild, untreated) Gastrointestinal History: Reports: Diverticulosis, Other (See Below) (possible gastroparesis) Neurological History: Reports: Neuropathy, Peripheral (BLE) Psychiatric History: Reports: Anxiety, Depression, PTSD, Other (See Below) (Fibromyalgia) - Infectious Disease History Infectious Disease History: Reports: HIV-Human Immunodeficiency Virus, Novel Coronavirus (dx'd 07/16 or 07/17/2020) - Past Surgical History HEENT Surgical History: Reports: Adenoidectomy, Tonsillectomy Cardiovascular Surgical History: Reports: Coronary Artery Stent (x 1), Other (See Below) (Coronary angiogram x 3) GI Surgical History: Reports: Cholecystectomy (around 2009), Hernia, Abdominal (paraumbilical), Hernia, Inguinal (right) Female Surgical History: Reports: Hysterectomy (partial), Tubal Ligation, Other (See Below) (Bladder suspension) Social & Family History - Family History Cardiac: Reports: CAD, Hypertension - Tobacco Use Tobacco Use Status *Q: Current Every Day Tobacco User Years of Tobacco use: 39 Packs/Tins Daily: 0.3 Packs/Tins Daily Comment: Down from 1 ppd Tobacco Use Comment: Since 16 yrs old - Caffeine Use Caffeine Use: Reports: None - Alcohol Use Alcohol Use History: No - Recreational Drug Use Recreational Drug Use: Yes Drug Use in Last 12 Months: Yes Recreational Drug Type: Reports: Cocaine (last snorted around 1990), Marijuana/Hashish (smokes twice a week), Methamphetamine (last smoked around 1995), Psilocybin (Mushrooms) (tried once when 15 yrs old) - Living Situation & Occupation Living situation: Reports: Single, Alone Occupation: Unemployed ED ROS GENERAL - Review of Systems Review Of Systems: Comprehensive ROS is negative, except as noted in HPI. ED EXAM, GENERAL - Physical Exam Exam: See Below Exam Limited By: No Limitations General Appearance: Alert, WD/WN, No Apparent Distress Eye Exam: Bilateral Eye: EOMI, Normal Inspection, PERRL Ears: Normal External Exam, Normal Canal, Hearing Grossly Normal, Normal TMs Nose: Normal Inspection, Normal Mucosa, No Blood Throat/Mouth: Normal Inspection, Normal Lips, Normal Teeth, Normal Gums, Normal Oropharynx, Normal Voice, No Airway Compromise Head: Atraumatic, Normocephalic Neck: Normal Inspection, Supple, Non-Tender, Full Range of Motion. No: Lymphadenopathy (L), Lymphadenopathy (R) Respiratory/Chest: No Respiratory Distress, Lungs Clear, Normal Breath Sounds, No Accessory Muscle Use Cardiovascular: Normal Peripheral Pulses, Regular Rate, Rhythm, No Edema, No Gallop, No JVD, No Murmur, No Rub Peripheral Pulses: 3+: Radial (L), Radial (R) GI/Abdominal: Normal Bowel Sounds, Soft, Non-Tender, No Organomegaly, No Distention, No Abnormal Bruit, No Mass Back Exam: Normal Inspection, Full Range of Motion, NT Extremities: Normal Inspection, Normal Range of Motion, No Pedal Edema, Normal Capillary Refill Neurological: Alert, Oriented, CN II-XII Intact, Normal Cognition, No Motor/Sensory Deficits (poor effort) Psychiatric: Depressed Mood Skin Exam: Warm, Dry, Intact, Normal Color, No Rash #1 Interpretation EKG Date: 10/20/20 Time: 20:19 Rhythm: NSR Rate (Beats/Min): 71 [place]: Normal P-Wave: Enlarged (GWEN) QRS: Normal ST-T: Normal QT: Normal Comparison: No Change (10/12/2016) Course - Vital Signs Last Recorded V/S: Last Vital Signs Temp 36.2 C 10/20/20 19:07 Pulse 89 10/20/20 19:07 Resp 20 10/20/20 19:07 BP 135/94 H 10/20/20 19:07 Pulse Ox 95 10/20/20 19:07 - Orders/Labs/Meds Labs: Laboratory Tests 10/20/20 10/20/20 10/20/20 Range/Units 20:05 20:05 20:05 WBC 9.99 (3.98-10.04) K/mm3 RBC 3.93 L (3.98-5.22) M/mm3 Hgb 12.0 (11.2-15.7) gm/dl Hct 37.3 (34.1-44.9) % MCV 94.9 H (79.4-94.8) fl MCH 30.5 (25.6-32.2) pg MCHC 32.2 (32.2-35.5) g/dl RDW Std Deviation 48.1 H (36.4-46.3) fL Plt Count 237 (182-369) K/mm3 MPV 8.9 L (9.4-12.3) fl Neutrophils % (Manual) 68 H (40-60) % Band Neutrophils % 0 (0-10) % Lymphocytes % (Manual) 17 L (20-40) % Atypical Lymphs % 6 % Monocytes % (Manual) 8 (2-10) % Eosinophils % (Manual) 1 (0.7-5.8) % Basophils % (Manual) 0 L (0.1-1.2) Platelet Estimate Adequate RBC Morph Comment Normal D-Dimer, Quantitative (0.19-0.50) mg/L Sodium 138 (136-145) mEq/L Potassium 3.6 (3.5-5.1) mEq/L Chloride 102 (98-107) mEq/L Carbon Dioxide 25 (21-32) mEq/L Anion Gap 14.6 (5-15) BUN 15 (7-18) mg/dL Creatinine 1.0 (0.55-1.02) mg/dL Est Cr Clr Drug Dosing 51.96 mL/min Estimated GFR (MDRD) 57 (>60) mL/min BUN/Creatinine Ratio 15.0 (14-18) Glucose 132 H (74-106) mg/dL Lactic Acid 1.2 (0.4-2.0) mmol/L Calcium 8.7 (8.5-10.1) mg/dL Magnesium 2.4 (1.8-2.4) mg/dl Total Bilirubin 0.2 (0.2-1.0) mg/dL AST 18 (15-37) U/L ALT 36 (14-59) U/L Alkaline Phosphatase 137 H (46-116) U/L Troponin I < 0.017 (0.00-0.056) ng/mL C-Reactive Protein 2.0 H* (<1.0) mg/dL Total Protein 7.6 (6.4-8.2) g/dl Albumin 3.6 (3.4-5.0) g/dl Globulin 4.0 gm/dL Albumin/Globulin Ratio 0.9 L (1-2) TSH 3rd Generation 1.841 (0.358-3.74) uIU/mL Influenza Type A RNA (NEGATIVE) Influenza Type B RNA (NEGATIVE) SARS-CoV-2 RNA (DOMI) (NEGATIVE) 10/20/20 10/20/20 Range/Units 20:05 20:30 WBC (3.98-10.04) K/mm3 RBC (3.98-5.22) M/mm3 Hgb (11.2-15.7) gm/dl Hct (34.1-44.9) % MCV (79.4-94.8) fl MCH (25.6-32.2) pg MCHC (32.2-35.5) g/dl RDW Std Deviation (36.4-46.3) fL Plt Count (182-369) K/mm3 MPV (9.4-12.3) fl Neutrophils % (Manual) (40-60) % Band Neutrophils % (0-10) % Lymphocytes % (Manual) (20-40) % Atypical Lymphs % % Monocytes % (Manual) (2-10) % Eosinophils % (Manual) (0.7-5.8) % Basophils % (Manual) (0.1-1.2) Platelet Estimate RBC Morph Comment D-Dimer, Quantitative 0.41 (0.19-0.50) mg/L Sodium (136-145) mEq/L Potassium (3.5-5.1) mEq/L Chloride (98-107) mEq/L Carbon Dioxide (21-32) mEq/L Anion Gap (5-15) BUN (7-18) mg/dL Creatinine (0.55-1.02) mg/dL Est Cr Clr Drug Dosing mL/min Estimated GFR (MDRD) (>60) mL/min BUN/Creatinine Ratio (14-18) Glucose (74-106) mg/dL Lactic Acid (0.4-2.0) mmol/L Calcium (8.5-10.1) mg/dL Magnesium (1.8-2.4) mg/dl Total Bilirubin (0.2-1.0) mg/dL AST (15-37) U/L ALT (14-59) U/L Alkaline Phosphatase (46-116) U/L Troponin I (0.00-0.056) ng/mL C-Reactive Protein (<1.0) mg/dL Total Protein (6.4-8.2) g/dl Albumin (3.4-5.0) g/dl Globulin gm/dL Albumin/Globulin Ratio (1-2) TSH 3rd Generation (0.358-3.74) uIU/mL Influenza Type A RNA Negative (NEGATIVE) Influenza Type B RNA Negative (NEGATIVE) SARS-CoV-2 RNA (DOMI) Negative (NEGATIVE) - Re-Assessments/Exams Free Text/Narrative Re-Assessment/Exam: 10/20/20 20:04 As above, the patient has had symptoms of feeling tired with increasing sleeping, right-side chest soreness, back pain, lower extremity pain, a he adache, a scratchy throat, itchy ears, and nasal congestion with loss of smell for the past few days. No recent fever. Her physical exam, including a thorough neurologic examination, is grossly unremarkable. I have ordered a work-up that includes numerous blood tests, a chest x-ray, a swab for both the SARS-CoV-2 virus and influenza, and an ECG. Due to the patient's age and prior tonsillectomy, I am not ordering a group A strep test. 10/20/20 20:36 2-view chest radiograph is read by Dr. Rajan as: 1. Findings as noted above. 2. Nothing acute is appreciated on 2 view chest x-ray. 10/20/20 21:29 The patient's CBC is unremarkable. Her CMP is remarkable for mild hyperglycemia of 132, and is otherwise unremarkable. Her magnesium level is within normal limits at 2.4. Her lactic acid level is within normal limits at 1.2. Her TSH is within normal limits at 1.841. Her CRP is slightly elevated at 2.0. Her troponin is undetectably low. Her D-dimer is within normal limits at 0.41. Her swab for the SARS-CoV-2 virus and influenza viruses has not yet resulted. 10/20/20 22:22 The patient's swab for the SARS-CoV-2 virus and influenza viruses has returned negative for all. 10/20/20 22:24 I went to the patient's room to discuss her test results, however, it appears that she eloped the ED without telling anyone. Departure - Departure Time of Disposition: 22:24 Disposition: Eloped 07 Condition: Good Clinical Impression: Multiple complaints - Discharge Information *PRESCRIPTION DRUG MONITORING PROGRAM REVIEWED*: Not Applicable *COPY OF PRESCRIPTION DRUG MONITORING REPORT IN PATIENT LATOSHA: Not Applicable Referrals: Do Saini MD [Primary Care Provider] - Arcadio Ruiz Om, MD [Ordering Only Provider] - Michael Rey MD [Ordering Only Provider] - Sadi Burns MD [Ordering Only Provider] - Forms: ED Department Discharge Sepsis Event Note (ED) - Evaluation Sepsis Screening Result: No Definite Risk
--- NOTE | 2020-10-20 20:33 | CR ---
Chest: PA and lateral views of the chest were obtained. Comparison: Prior chest x-ray of 07/18/20. Heart size and mediastinum are within normal limits. Lungs are clear with no acute parenchymal change. Mild scoliosis is noted within the spine. Surgical clips are seen from prior cholecystectomy. Impression: 1. Findings as noted above. 2. Nothing acute is appreciated on 2 view chest x-ray. Diagnostic code #2
[2020-10-20 21:28] LABS: CORONAVIRUS COVID-19 NAA NEGATIVE (NEGATIVE)
== END 2020-10-20 22:20 | disposition left against medical advice (07) ==
LOC: JD.ED 18:51
DX: R55 Syncope and collapse (principal); G47.9 Sleep disorder, unspecified; R07.89 Other chest pain; M54.9 Dorsalgia, unspecified; I25.10 Atherosclerotic heart disease of native coronary artery without angina pectoris; J44.9 Chronic obstructive pulmonary disease, unspecified; R51.9 Headache, unspecified; G62.9 Polyneuropathy, unspecified; Z88.6 Allergy status to analgesic agent; Z88.8 Allergy status to other drugs, medicaments and biological substances; Z88.2 Allergy status to sulfonamides; Z79.82 Long term (current) use of aspirin; Z79.899 Other long term (current) drug therapy; Z72.0 Tobacco use; Z20.822 Contact with and (suspected) exposure to COVID-19; Z20.828 Contact with and (suspected) exposure to other viral communicable diseases
CPT/HCPCS: 0240U; 36415; 71046; 80053; 83605; 83735; 84443; 84484; 85007; 85027; 85379; 86140; 93005; 99285; 93010; 99283

== ENCOUNTER 2021-01-04 14:59 | Emergency (ER) | payer MEDICARE, MEDICAID ==
[2021-01-04] MEDS ORDERED: Sodium Chloride 0.9% 1,000 ML IV ONE (16:16)
[2021-01-04] MEDS ORDERED: Ondansetron 4 MG/2 ML SDV IVPUSH ONE (16:16)
[2021-01-04] MEDS ORDERED: HYDROmorphone 1 MG/ML Syringe IVPUSH ONE (16:16)
--- NOTE | 2021-01-04 16:18 | EDM.PDOC ---
ED HPI GENERAL MEDICAL PROBLEM - General Chief Complaint: Abdominal Pain Stated Complaint: RT SIDE PAIN Time Seen by Provider: 01/04/21 15:07 Source of Information: Reports: Patient History Limitations: Reports: No Limitations - History of Present Illness INITIAL COMMENTS - FREE TEXT/NARRATIVE: Presents with 4 days of right flank pain and right upper quadrant right lower quadrant abdominal pain. Started gradually and felt sharp. Thought it was a pulled muscle but did not remember any fall trauma or injury and then over the last couple days gotten to the point where she is nauseated has had intermittent chills none is still any fevers but loss of appetite, worse with movement somewhat better at rest but feels sharp and burning. She does note that history of pyelonephritis in the past has noted more frequency with urination and more foul-smelling urine. Feels a little more gassy distended and bloated. Bowel movements have been less but no diarrhea. No runny nose or sore throat no Covid symptoms no coughing does seem to cause the pain shortness of breath associated with it. No palpitations no lightheadedness or dizziness patient does have history of coronary disease no chest pain associated with this however. She has had a gallbladder and her hysterectomy Right Upper Abdomen Pain Score (Numeric/FACES): 8 - Related Data Allergies Allergy/AdvReac Type Severity Reaction Status Date / Time ketorolac tromethamine Allergy Intermediate Rash Verified 01/04/21 15:14 [From Toradol] sumatriptan [From Imitrex] Allergy Intermediate Rash Verified 01/04/21 15:14 sumatriptan succinate Allergy Intermediate Rash Verified 01/04/21 15:14 [From Imitrex] celecoxib [From Celebrex] Allergy Unknown unknown Verified 01/04/21 15:14 lisinopril Allergy Unknown Other Verified 01/04/21 15:14 pantoprazole sodium Allergy Unknown Other Verified 01/04/21 15:14 [From Protonix] Sulfa (Sulfonamide Allergy Unknown unknown Verified 01/04/21 15:14 Antibiotics) NSAIDS (Non-Steroidal AdvReac Mild Chills Verified 01/04/21 15:14 Anti-Inflamma Home Meds: Home Meds Albuterol [Ventolin HFA] 2 puff INH Q6HR PRN 11/19/13 [History] Aspirin 325 mg PO DAILY 08/10/15 [History] atorvaSTATin [Lipitor] 40 mg PO DAILY 06/08/16 [History] Orphenadrine [Norflex] 100 mg PO BID PRN #20 tab 06/29/20 [Rx] PARoxetine HCl [Paxil] 1 tab PO DAILY 06/29/20 [History] hydrOXYzine HCL [Hydroxyzine HCl] 1 tab PO DAILY PRN 06/29/20 [History] LORazepam [Ativan] 1 mg PO TID PRN #21 tab 07/30/20 [Rx] Ondansetron [Zofran ODT] 4 mg PO Q8HR PRN #10 tab.dis 07/30/20 [Rx] Elviteg/Cob/Emtri/Tenofo Disop [Stribild Tablet] 1 tab PO BEDTIME 09/13/20 [History] QUEtiapine Fumarate [Seroquel] 50 mg PO BEDTIME 10/16/20 [History] oxyCODONE HCl/Acetaminophen [Percocet 5-325 mg Tablet] 1 each PO Q6H PRN #10 tablet 10/16/20 [Rx] Acetaminophen/HYDROcodone [Tabor 325-5 MG] 1 - 2 tab PO Q4H PRN #20 tablet 01/04/21 [Rx] Past Medical History HEENT History: Reports: Impaired Vision Cardiovascular History: Reports: CAD Other Cardiovascular History: 4 years ago Respiratory History: Reports: COPD Gastrointestinal History: Reports: Diverticulosis, Other (See Below) Other Gastrointestinal History: gastroparesis Genitourinary History: Reports: Other (See Below) [employer]ICAL [employer] History: Reports: Musculoskeletal History: Reports: Fibromyalgia, Other (See Below) Other Musculoskeletal History: neuropathy in both feet Neurological History: Reports: Neuropathy, Peripheral Other Neuro History: Fibromyalgia Psychiatric History: Reports: Anxiety, Depression, PTSD, Other (See Below) Endocrine/Metabolic History: Reports: None Hematologic History: Reports: None Immunologic History: Reports: HIV Oncologic (Cancer) History: Reports: None Dermatologic History: Reports: None - Infectious Disease History Infectious Disease History: Reports: HIV-Human Immunodeficiency Virus, Novel Coronavirus - Past Surgical History Head Surgeries/Procedures: Reports: None HEENT Surgical History: Reports: Adenoidectomy, Tonsillectomy Cardiovascular Surgical History: Reports: Coronary Artery Stent, Other (See Below) Other Cardiovascular Surgeries/Procedures: 2 angiograms GI Surgical History: Reports: Cholecystectomy, Hernia, Abdominal, Hernia, Inguinal Female Surgical History: Reports: Hysterectomy, Tubal Ligation, Other (See Below) Other Female Surgeries/Procedures: bladder sling Social & Family History - Family History Family Medical History: No Pertinent Family History Cardiac: Reports: CAD, Hypertension - Tobacco Use Tobacco Use Status *Q: Current Every Day Tobacco User Years of Tobacco use: 20 Packs/Tins Daily: 0.3 - Caffeine Use Caffeine Use: Reports: None - Recreational Drug Use Recreational Drug Use: No - Living Situation & Occupation Living situation: Reports: Single, Alone Occupation: Unemployed ED ROS GENERAL - Review of Systems Review Of Systems: See Below Constitutional: Reports: Chills. Denies: Fever, Diaphoresis HEENT: Denies: Rhinitis Respiratory: Reports: Shortness of Breath. Denies: Cough Cardiovascular: Denies: Chest Pain, Lightheadedness, Syncope GI/Abdominal: Reports: Abdominal Pain, Decreased Appetite, Distension, Flatus, Nausea. Denies: Vomiting : Reports: Flank Pain, Frequency, Urgency. Denies: Hematuria, Urinary Retention Musculoskeletal: Reports: Back Pain Neurological: Denies: Dizziness, Headache Psychiatric: Reports: No Symptoms ED EXAM, GI/ABD - Physical Exam Exam: See Below Exam Limited By: No Limitations General Appearance: Alert, WD/WN, Moderate Distress Throat/Mouth: Other (Dry mucous membranes) Head: Atraumatic Neck: Normal Inspection Respiratory/Chest: No Respiratory Distress, Lungs Clear, Normal Breath Sounds Cardiovascular: Normal Peripheral Pulses, Regular Rate, Rhythm, No Edema GI/Abdominal Exam: Normal Bowel Sounds, No Mass, Distended, Tender, Abnormal Bowel Sounds. No: Rigid, Rebound Back Exam: CVA Tenderness (R) Extremities: No Pedal Edema Neurological: Alert, Oriented Psychiatric: Normal Affect #1 Interpretation EKG Date: 01/04/21 Time: 18:19 Rhythm: NSR Rate (Beats/Min): 91 EKG Interpretation Comments: I reviewed EKG showing sinus rhythm rate of 91 [place] 183 QRS is 82 QT corrected is 461 no acute ischemic changes are noted. Course - Vital Signs Text/Narrative:: Right flank right upper quadrant pain rule out pyelonephritis renal colic had a gallbladder out seems less likely ascending cholangitis or pancreatitis rule out intra-abdominal obstruction, acute appendicitis less likely PE or coronary syndrome Last Recorded V/S: Last Vital Signs Temp 96.9 F 01/04/21 15:12 Pulse 88 01/04/21 15:12 Resp 16 01/04/21 15:12 BP 136/80 01/04/21 15:12 Pulse Ox 99 01/04/21 15:12 - Orders/Labs/Meds Orders: Active Orders 24 hr Category Date Time Status EKG Documentation Completion [RC] ASDIRECTED Care 01/04/21 16:16 Active EKG 12 Lead [EK] Stat Ther 01/04/21 16:15 Ordered Labs: Laboratory Tests 01/04/21 01/04/21 01/04/21 Range/Units 16:38 16:38 18:50 WBC 7.37 (3.98-10.04) K/mm3 RBC 4.35 (3.98-5.22) M/mm3 Hgb 12.9 (11.2-15.7) gm/dl Hct 40.6 (34.1-44.9) % MCV 93.3 (79.4-94.8) fl MCH 29.7 (25.6-32.2) pg MCHC 31.8 L (32.2-35.5) g/dl RDW Std Deviation 43.5 (36.4-46.3) fL Plt Count 226 (182-369) K/mm3 MPV 8.6 L (9.4-12.3) fl Neut % (Auto) 54.0 (34.0-71.1) % Lymph % (Auto) 33.2 (19.3-51.7) % [place] % (Auto) 9.5 (4.7-12.5) % Eos % (Auto) 2.3 (0.7-5.8) Baso % (Auto) 0.1 (0.1-1.2) % Neut # (Auto) 3.97 (1.56-6.13) K/mm3 Lymph # (Auto) 2.45 (1.18-3.74) K/mm3 [place] # (Auto) 0.70 H (0.24-0.36) K/mm3 Eos # (Auto) 0.17 (0.04-0.36) K/mm3 Baso # (Auto) 0.01 (0.01-0.08) K/mm3 Sodium 139 (136-145) mEq/L Potassium 4.4 (3.5-5.1) mEq/L Chloride 101 (98-107) mEq/L Carbon Dioxide 28 (21-32) mEq/L Anion Gap 14.4 (5-15) BUN 12 (7-18) mg/dL Creatinine 1.0 (0.55-1.02) mg/dL Est Cr Clr Drug Dosing 51.96 mL/min Estimated GFR (MDRD) 57 (>60) mL/min BUN/Creatinine Ratio 12.0 L (14-18) Glucose 99 (70-99) mg/dL Calcium 8.7 (8.5-10.1) mg/dL Total Bilirubin 0.3 (0.2-1.0) mg/dL AST 18 (15-37) U/L ALT 28 (14-59) U/L Alkaline Phosphatase 120 H (46-116) U/L C-Reactive Protein 1.1 H* (<1.0) mg/dL Total Protein 7.8 (6.4-8.2) g/dl Albumin 3.7 (3.4-5.0) g/dl Globulin 4.1 gm/dL Albumin/Globulin Ratio 0.9 L (1-2) Lipase 89 (73-393) U/L Urine Color Yellow (Yellow) Urine Appearance Clear (Clear) Urine pH 6.5 (5.0-8.0) Ur Specific [place] 1.010 (1.005-1.030) Urine Protein Negative (Negative) Urine Glucose (UA) Negative (Negative) Urine Ketones Negative (Negative) Urine Occult Blood Trace-intact H (Negative) Urine Nitrite Negative (Negative) Urine Bilirubin Negative (Negative) Urine Urobilinogen 0.2 (0.2-1.0) Ur Leukocyte Esterase Negative (Negative) Urine RBC 0-5 (0-5) /hpf Urine WBC 0-5 (0-5) /hpf Ur Squamous Epith Cells 0-5 (0-5) /hpf Urine Bacteria Occasional (FEW) /hpf Urine Mucus Not seen (FEW) /hpf White count is 7300 hemoglobin is 12.9 hematocrit of 40.6 platelet count is 226,000 sodium 139 potassium 4.4 chloride 101 CO2 is 28 BUN 12 creatinine 1 GFR 57 glucose 99 calcium 8.7 total bilirubin 0.3 AST and ALT are normal alkaline [place] is mildly elevated 120 C-reactive protein 1.1 total protein and albumin are normal lipase is negative Meds: Medications Discontinued Medications Generic Name Dose Route Start Last Admin Trade Name Polaq PRN Reason Stop Dose Admin Diatrizoate Meglum/Diatrizoate Sod 60 ml 01/04/21 17:47 01/04/21 18:01 Diatrizoate Meglumine/Diatrizoate Sodium 37% 120 Ml Bottle PO 01/04/21 17:48 60 ml ONETIME ONE Administration Hydromorphone HCl 1 mg 01/04/21 16:16 01/04/21 16:37 Hydromorphone 1 Mg/Ml Syringe IVPUSH 01/04/21 16:17 1 mg ONETIME ONE Administration Hydromorphone HCl 0.5 mg 01/04/21 18:31 01/04/21 18:37 Hydromorphone 0.5 Mg/0.5 Ml Syringe IVPUSH 01/04/21 18:32 0.5 mg ONETIME ONE Administration Sodium Chloride 1,000 mls @ 999 mls/hr 01/04/21 16:16 01/04/21 16:39 Normal Saline IV 01/04/21 17:16 999 mls/hr ONETIME ONE Administration Iopamidol 100 ml 01/04/21 17:47 01/04/21 18:01 Iopamidol 612 Mg/Ml 100 Ml Bottle IVPUSH 01/04/21 17:48 100 ml ONETIME ONE Administration Iopamidol 25 ml 01/04/21 17:48 01/04/21 18:01 Iopamidol 612 Mg/Ml 50 Ml Sdv IVPUSH 01/04/21 17:49 25 ml ONETIME ONE Administration Ondansetron HCl 4 mg 01/04/21 16:16 01/04/21 16:35 Ondansetron 4 Mg/2 Ml Sdv IVPUSH 01/04/21 16:17 4 mg ONETIME ONE Administration - Radiology Interpretation Free Text/Narrative:: CT scan shows fat-containing umbilical hernias no acute abnormality otherwise no kidney problems no hydronephrosis abdominal aorta is normal previous scan was done in 09/28/2015 CT Results Date: 01/04/21 CT Results Time: 18:37 - Re-Assessments/Exams Free Text/Narrative Re-Assessment/Exam: 01/04/21 19:17 Analysis and is negative. Nonspecific abdominal pelvic flank pain. Acute appendicitis not urinary tract fraction doubt pyelonephritis no urinary stones renal colic hydronephrosis he does have some elevated liver function tests the CT that shows no acute ductal changes and no pancreatitis. Will discharge patient home recommend follow-up with her primary care physician we will give her hydrocodone prescription recommend return precautions. Departure - Departure Time of Disposition: 19:25 Disposition: Home, Self-Care 01 Condition: Fair Clinical Impression: Flank pain, acute, Flank pain, Abdominal pain - Discharge Information *PRESCRIPTION DRUG MONITORING PROGRAM REVIEWED*: Yes *COPY OF PRESCRIPTION DRUG MONITORING REPORT IN PATIENT LATOSHA: No Prescriptions: Acetaminophen/HYDROcodone [Tabor 325-5 MG] 1 - 2 tab PO Q4H PRN #20 tablet PRN Reason: Pain Instructions: Flank Pain, Adult, [id number] Referrals: Do Saini MD [Primary Care Provider] - Forms: ED Department Discharge Additional Instructions: Recommend you follow-up with your primary care physician tomorrow, may try Advil or Motrin for pain tonight, written prescription for hydrocodone 1-2 every 6 hours only as needed for severe pain. Return if any fevers, increasing pain, unable to urinate, increasing shortness of breath, chest pain, vomiting or any worsening symptoms. Sepsis Event Note (ED) - Evaluation Sepsis Screening Result: No Definite Risk - Focused Exam Vital Signs: Vital Signs Temp Pulse Resp BP Pulse Ox 01/04/21 15:12 96.9 F 88 16 136/80 99 - My Orders Last 24 Hours: My Active Orders 01/04/21 16:15 EKG 12 Lead [EK] Stat 01/04/21 16:16 EKG Documentation Completion [RC] ASDIRECTED - Assessment/Plan Last 24 Hours: My Active Orders 01/04/21 16:15 EKG 12 Lead [EK] Stat 01/04/21 16:16 EKG Documentation Completion [RC] ASDIRECTED
[2021-01-04] MEDS ORDERED: Diatrizoate Meglumine/Diatrizoate Sodium 37% 120 ML Bottle PO ONE (17:47)
[2021-01-04] MEDS ORDERED: Iopamidol 612 MG/ML 100 ML Bottle IVPUSH ONE (17:47)
[2021-01-04] MEDS ORDERED: Iopamidol 612 MG/ML 50 ML SDV IVPUSH ONE (17:48)
[2021-01-04] MEDS ORDERED: HYDROmorphone 0.5 MG/0.5 ML Syringe IVPUSH ONE (18:31)
--- NOTE | 2021-01-04 18:43 | CT ---
CT abdomen and pelvis Technique: Multiple axial sections were obtained from above the dome of the diaphragm inferiorly through the pubic symphysis. Intravenous and oral contrast was utilized. Delayed images were obtained through the bladder. Reconstructed coronal and sagittal images were obtained. Comparison: Previous CT abdomen and pelvis study of 09/28/15. Findings: Slight dependent atelectasis is seen posteriorly within both lung bases. Liver contains no focal abnormality. Surgical clips are seen from previous cholecystectomy. Spleen appears within normal limits. Adrenal glands show no nodules. No abnormality is seen within the pancreas. Kidneys show symmetric contrast enhancement. No hydronephrosis or mass is seen. Abdominal aorta shows no aneurysm. No retroperitoneal adenopathy or mesenteric abnormalities are seen. Two adjacent fat-containing supra-umbilical hernias are noted. Additional small fat-containing infra-umbilical hernia is also seen. Surgical clips are noted within the right lower abdomen. Appendix is seen which is normal in size. No pelvic mass or adenopathy is seen. Delayed images show contrast within the bladder. Bone window settings were reviewed which show no acute osseous abnormality. Impression: 1. Fat-containing umbilical hernias. 2. No acute abnormality is otherwise appreciated on CT study of the abdomen and pelvis. Diagnostic code #2
[2021-01-04 19:48] VITALS: BP 106/66; PULSE 96
== END 2021-01-04 19:46 | disposition home or self-care (01) ==
LOC: JD.ED 14:59
DX: R10.9 Unspecified abdominal pain (principal); I25.10 Atherosclerotic heart disease of native coronary artery without angina pectoris; J44.9 Chronic obstructive pulmonary disease, unspecified; Z72.0 Tobacco use; Z79.899 Other long term (current) drug therapy; Z79.82 Long term (current) use of aspirin; Z88.5 Allergy status to narcotic agent; Z88.2 Allergy status to sulfonamides; Z88.8 Allergy status to other drugs, medicaments and biological substances
CPT/HCPCS: 36415; 74177; 80053; 81001; 83690; 85025; 86140; 93005; 96374; 96375; 96376; 99285; J1170; J2405; J7030; Q9963; Q9967; 93010; 99284

== ENCOUNTER 2021-01-07 19:21 | Emergency (ER) | payer MEDICARE, MEDICAID ==
[2021-01-07 19:45] VITALS: BP 136/85; PULSE 86
[2021-01-07] MEDS ORDERED: HYDROmorphone 1 MG/ML Syringe IVPUSH ONE (20:04)
[2021-01-07] MEDS ORDERED: LORazepam 2 MG/ML SDV IVPUSH STA (20:04)
[2021-01-07] MEDS ORDERED: Orphenadrine 100 MG Tab.ER PO STA (20:04)
--- NOTE | 2021-01-07 20:13 | EDM.PDOC ---
ED HPI GENERAL MEDICAL PROBLEM - General Chief Complaint: Back Pain or Injury Stated Complaint: right side and lower back pain Time Seen by Provider: 01/07/21 19:31 Source of Information: Reports: Patient, Old Records (ED 01/04/2021) History Limitations: Reports: Uncooperative (Initially hostile, but then improved) - History of Present Illness INITIAL COMMENTS - FREE TEXT/NARRATIVE: Ms. Cloud is a 55-year-old woman who, medical records indicate, was seen in this ED 3 days ago, on 01/04/2021, for a complaint at that time of 4 days of right flank pain and right UPPER quadrant abdominal pain. She had reported that the pain started gradually, but progressively got worse. She described the pain at that time as sharp in character. No known injury. She had had nausea and intermittent chills, but no vomiting or fever. No constipation or diarrhea. No chest pain or dyspnea. She was found to be hemodynamically stable, afebrile, saturating 99% on room air. On physical exam, she was found to have right CVA tenderness, but no abnormal abdominal findings. Work-up included a CBC, CMP, lipase level, CRP, a urinalysis, a CT of the abdomen and pelvis with oral and IV contrast, and an ECG. Her CRP was found to be slightly elevated at 1.1, otherwise, her entire work-up, including that of her CT scan, was unremarkable, without explanation for the cause of her pain. She was treated with 1.5 mg of IV Dilaudid and 4 mg of IV Zofran before being discharged home with a prescription for Ankeny 5/325, 1-2 tabs po Q 4hrs prn, #20. She was instructed to follow-up with her PCP the following day. The patient now returns the ED stating that she did not follow-up with her PCP, and, in fact, has not yet made an appointment. She states that her pain has continued, now felt in her right LOWER quadrant and right flank pain. She states that the pain moves around. It is made worse with movement; she cannot tolerate standing or walking. Still no recent fever, dyspnea, chest pain, nausea, vomiting, constipation, diarrhea, or urinary symptoms. She states that she took 2 tablets of Ankeny this morning, which did not really help, and no pain medications since. Here in the ED tonight, the patient is found to be hemodynamically stable, afebrile, saturating 98% on room air. She is complaining of pain, and appears to be uncomfortable, although in no acute distress. Prior to about a week ago, the patient denies having a recent fever, chills, sore throat, ear pain, nasal or sinus congestion, cough, dyspnea, chest pain, palpitations, nausea, vomiting, constipation, diarrhea, abdominal pain, urinary symptoms, recent weight gain or weight loss, recent bloody bowel movements or black bowel movements, recent joint aches, headaches, or rashes. The patient's PCP is Dr. Do Saini. Her Predictive Maintenance Specialist is Dr. Arcadio Ruiz. Her Garage Supervisor is Dr. Michael Rey. Her Infectious dDsease specialist is Dr. Sadi Burns. She does not recall the name of her Neurologist. Treatments MEDIA RELATIONS ASSOCIATE: Reports: Other (see below) Other Treatments MEDIA RELATIONS ASSOCIATE: norco Right Back Pain Score (Numeric/FACES): 10 Right Abdomen Pain Score (Numeric/FACES): 7 - Related Data Allergies Allergy/AdvReac Type Severity Reaction Status Date / Time ketorolac tromethamine Allergy Intermediate Rash Verified 01/04/21 15:14 [From Toradol] sumatriptan [From Imitrex] Allergy Intermediate Rash Verified 01/04/21 15:14 sumatriptan succinate Allergy Intermediate Rash Verified 01/04/21 15:14 [From Imitrex] celecoxib [From Celebrex] Allergy Unknown unknown Verified 01/04/21 15:14 lisinopril Allergy Unknown Other Verified 01/04/21 15:14 pantoprazole sodium Allergy Unknown Other Verified 01/04/21 15:14 [From Protonix] Sulfa (Sulfonamide Allergy Unknown unknown Verified 01/04/21 15:14 Antibiotics) NSAIDS (Non-Steroidal AdvReac Mild Chills Verified 01/04/21 15:14 Anti-Inflamma Home Meds: Home Meds Albuterol [Ventolin HFA] 2 puff INH Q6HR PRN 11/19/13 [History] Aspirin 325 mg PO DAILY 08/10/15 [History] atorvaSTATin [Lipitor] 40 mg PO DAILY 06/08/16 [History] Orphenadrine [Norflex] 100 mg PO BID PRN #20 tab 06/29/20 [Rx] PARoxetine HCl [Paxil] 1 tab PO DAILY 06/29/20 [History] LORazepam [Ativan] 1 mg PO TID PRN #21 tab 07/30/20 [Rx] Ondansetron [Zofran ODT] 4 mg PO Q8HR PRN #10 tab.dis 07/30/20 [Rx] Elviteg/Cob/Emtri/Tenofo Disop [Stribild Tablet] 1 tab PO BEDTIME 09/13/20 [History] QUEtiapine Fumarate [Seroquel] 50 mg PO BEDTIME 10/16/20 [History] oxyCODONE HCl/Acetaminophen [Percocet 5-325 mg Tablet] 1 each PO Q6H PRN #10 tablet 10/16/20 [Rx] Acetaminophen/HYDROcodone [Ankeny 325-5 MG] 1 - 2 tab PO Q4H PRN #20 tablet 01/04/21 [Rx] Orphenadrine [Norflex] 1 tab PO Q12H PRN #14 tab.er 01/07/21 [Rx] Past Medical History HEENT History: Reports: Impaired Vision Cardiovascular History: Reports: CAD Respiratory History: Reports: COPD (mild, untreated) Gastrointestinal History: Reports: Diverticulosis, Other (See Below) (Possible gastroparesis) Neurological History: Reports: Neuropathy, Peripheral (BLE) Psychiatric History: Reports: Anxiety, Depression, PTSD, Other (See Below) (Fibromyalgia) - Infectious Disease History Infectious Disease History: Reports: HIV-Human Immunodeficiency Virus, Novel Coronavirus (07/16/2020 or 07/17/2020) - Past Surgical History HEENT Surgical History: Reports: Adenoidectomy, Tonsillectomy Cardiovascular Surgical History: Reports: Coronary Artery Stent (x 1), Other (See Below) (Coronary angio x 3) GI Surgical History: Reports: Cholecystectomy (around 2009), Hernia, Abdominal (paraumbilical), Hernia, Inguinal (right) Female Surgical History: Reports: Hysterectomy (partial), Tubal Ligation, Other (See Below) (Bladder suspension) Social & Family History - Tobacco Use Tobacco Use Status *Q: Current Every Day Tobacco User Years of Tobacco use: 39 Packs/Tins Daily: 0.3 Packs/Tins Daily Comment: Down from 1 ppd Tobacco Use Comment: Started smoking at 16 yrs old - Caffeine Use Caffeine Use: Reports: Coffee, Energy Drinks, Soda, Tea - Alcohol Use Alcohol Use History: No - Recreational Drug Use Recreational Drug Use: Yes Drug Use in Last 12 Months: Yes Recreational Drug Type: Reports: Cocaine (last snorted around 1990), Marijuana/Hashish (smokes 2-3 x a week), Methamphetamine (last smoked around 1995), Psilocybin (Mushrooms) (tried once when 15 yrs old) - Living Situation & Occupation Living situation: Reports: Single, Alone Occupation: Unemployed ED ROS GENERAL - Review of Systems Review Of Systems: Comprehensive ROS is negative, except as noted in HPI. ED EXAM, GENERAL - Physical Exam Exam: See Below Exam Limited By: No Limitations General Appearance: Alert, WD/WN, Mild Distress (appears uncomfortable) Eye Exam: Bilateral Eye: EOMI, Normal Inspection Ears: Normal External Exam, Hearing Grossly Normal Nose: Normal Inspection Throat/Mouth: Normal Inspection, Normal Lips, Normal Voice, No Airway Compromise Head: Atraumatic, Normocephalic Neck: Normal Inspection, Full Range of Motion Respiratory/Chest: No Respiratory Distress, Lungs Clear, Normal Breath Sounds, No Accessory Muscle Use Cardiovascular: Normal Peripheral Pulses, Regular Rate, Rhythm, No Gallop, No JVD, No Murmur, No Rub Peripheral Pulses: 3+: Radial (L), Radial (R) GI/Abdominal: Normal Bowel Sounds, Soft, No Organomegaly, No Distention, No Abnormal Bruit, No Mass, Tender (right lower quadrant only - reproducible - with no tenderness elsewhere) Back Exam: Normal Inspection, Full Range of Motion, Paraspinal Tenderness (lower right only), Vertebral Tenderness (lower lumbar - sends pain into lower right back) Extremities: Normal Inspection, Normal Range of Motion, Normal Capillary Refill Neurological: Alert, Oriented, Normal Cognition, No Motor/Sensory Deficits Psychiatric: Normal Affect Skin Exam: Warm, Dry, Intact, Normal Color, No Rash Course - Vital Signs Last Recorded V/S: Last Vital Signs Temp 36.2 C 01/07/21 19:43 Pulse 86 01/07/21 19:43 Resp 20 01/07/21 19:43 BP 136/85 01/07/21 19:43 Pulse Ox 98 01/07/21 19:43 - Orders/Labs/Meds Labs: Laboratory Tests 01/07/21 01/07/21 Range/Units 20:09 20:09 WBC 7.84 (3.98-10.04) K/mm3 RBC 4.41 (3.98-5.22) M/mm3 Hgb 13.2 (11.2-15.7) gm/dl Hct 41.0 (34.1-44.9) % MCV 93.0 (79.4-94.8) fl MCH 29.9 (25.6-32.2) pg MCHC 32.2 (32.2-35.5) g/dl RDW Std Deviation 43.1 (36.4-46.3) fL Plt Count 226 (182-369) K/mm3 MPV 8.7 L (9.4-12.3) fl Neutrophils % (Manual) 65 H (40-60) % Band Neutrophils % 0 (0-10) % Lymphocytes % (Manual) 22 (20-40) % Atypical Lymphs % 3 % Monocytes % (Manual) 8 (2-10) % Eosinophils % (Manual) 2 (0.7-5.8) % Basophils % (Manual) 0 L (0.1-1.2) Platelet Estimate Adequate RBC Morph Comment Normal Sodium 137 (136-145) mEq/L Potassium 3.7 (3.5-5.1) mEq/L Chloride 100 (98-107) mEq/L Carbon Dioxide 29 (21-32) mEq/L Anion Gap 11.7 (5-15) BUN 12 (7-18) mg/dL Creatinine 0.8 (0.55-1.02) mg/dL Est Cr Clr Drug Dosing 64.95 mL/min Estimated GFR (MDRD) > 60 (>60) mL/min BUN/Creatinine Ratio 15.0 (14-18) Glucose 105 H (70-99) mg/dL Calcium 8.8 (8.5-10.1) mg/dL Magnesium 2.0 (1.8-2.4) mg/dL Total Bilirubin 0.3 (0.2-1.0) mg/dL AST 19 (15-37) U/L ALT 28 (14-59) U/L Alkaline Phosphatase 143 H (46-116) U/L Creatine Kinase 51 (26-192) U/L C-Reactive Protein 0.7 (<1.0) mg/dL Total Protein 7.6 (6.4-8.2) g/dl Albumin 3.6 (3.4-5.0) g/dl Globulin 4.0 gm/dL Albumin/Globulin Ratio 0.9 L (1-2) Meds: Medications Discontinued Medications Generic Name Dose Route Start Last Admin Trade Name Ioana PRN Reason Stop Dose Admin Hydromorphone HCl 1 mg 01/07/21 20:04 01/07/21 20:13 Hydromorphone 1 Mg/Ml Syringe IVPUSH 01/07/21 20:05 1 mg ONETIME ONE Administration Sodium Chloride 1,000 mls @ 150 mls/hr 01/07/21 20:15 01/07/21 20:12 Normal Saline IV 150 mls/hr ASDIRECTED IVET Administration Lorazepam 1 mg 01/07/21 20:04 01/07/21 20:14 Lorazepam 2 Mg/Ml Sdv IVPUSH 01/07/21 20:05 1 mg ONETIME STA Administration Orphenadrine Citrate 100 mg 01/07/21 20:04 01/07/21 20:13 Orphenadrine 100 Mg Tab.Er PO 01/07/21 20:05 100 mg ONETIME STA Administration - Re-Assessments/Exams Free Text/Narrative Re-Assessment/Exam: 01/07/21 20:06 As above, the patient has had right-sided abdominal and right lower back pain for about a week, although she states that the pain moves around. She was seen in this ED 3 days ago, and had a thorough work-up, including a CT of the abdomen and pelvis, all of which was unremarkable. She was discharged home with a prescription for 20 tablets of Ankeny. She states that she took 2 tabs this morning, but that it did not really help, and none since. On examination, she reports tenderness to her right lower quadrant, with less tenderness to her lower right flank. Her pain is made worse with muscle movements, leading me to question whether or not her pain may be musculoskeletal in etiology, however, the patient immediately dismissed that notion, although was unable to say why it was the incorrect diagnosis. Because Dr. Rust's workup was so thorough on Tuesday, there are not many other tests that I can perform here in the ED that may shed light on the cause of the patient's pain. I have ordered a work-up that includes several blood tests, including a CPK and magnesium level. In the meantime, the patient will be treated with IV lorazepam, IV Dilaudid, oral Norflex, and IV fluid, to see if we can get her some relief. 01/07/21 21:05 The patient's CBC is unremarkable. Her CMP is markable for slight hyperglycemia of 105, and an alkaline phosphatase mildly elevated 145, with the remainder of her CMP being unremarkable. Her magnesium level is within normal limits at 2.0. Her CPK is within normal limits at 51. Her CRP is within normal limits at 0.7. 01/07/21 21:31 Test results discussed with the patient. As above, today's work-up is completely unremarkable. The patient is nearly asleep, and had difficulty waking up to discuss her test results. I recommended prescribing some Norflex that she can chicken picker in the morning and start taking twice a day, then have her follow-up with her PCP for further evaluation. She expressed understanding, but then asked if she could be given an additional shot of pain medication before she left the ED. I explained that I did not feel comfortable doing that, with her negative workups and current degree of sedation. I also pointed out that she was just prescribed 20 tablets of Ankeny 2 days ago, and she should have plenty remaining. Oddly, however, the patient started arguing with me, insisting that she needed additional pain medication. Her presentation is now very concerning for drug seeking behavior. Departure - Departure Time of Disposition: 21:34 Disposition: Home, Self-Care 01 Condition: Good Clinical Impression: Right lower quadrant abdominal pain of unknown etiology, Right low back pain, Drug-seeking behavior - Discharge Information *PRESCRIPTION DRUG MONITORING PROGRAM REVIEWED*: No *COPY OF PRESCRIPTION DRUG MONITORING REPORT IN PATIENT LATOSHA: No Prescriptions: Orphenadrine [Norflex] 1 tab PO Q12H PRN #14 tab.er PRN Reason: Muscle Spasm Instructions: Abdominal Pain, Adult, [id number], Chronic Back Pain, [id number] Referrals: Do Saini MD [Primary Care Provider] - Arcadio Ruiz Om, MD [Ordering Only Provider] - Michael Rey MD [Ordering Only Provider] - Sadi Burns MD [Ordering Only Provider] - Forms: ED Department Discharge Additional Instructions: You were seen in the emergency room for continued lower right back pain with lower right abdominal pain. Work-up in the ER included numerous blood tests, all of which were unremarkable. There is no sign of an infection, inflammation, or muscle damage. The cause of your continued pain is not known, however, it may be due to a muscle spasm. You have been started on the muscle relaxant Norflex, and a prescription for Norflex has been sent to [facility], located in the [facility] ding across [address] from the hospital. Take 1 tablet of Norflex every 12 hours, as prescribed. In addition to Norflex, you may take 1 to 2 tablets of the prescription opioid Ankeny up to every 4 hours, as previously prescribed. If you take Ankeny, do not drive or operate heavy machinery for 12 hours afterwards. Ankeny may cause constipation, so consider taking a stool softener. As discussed, it is very important that you follow-up with your PCP, Dr. Do Saini, for further evaluation as to the cause of your pain. Please call her office first thing in the morning. If any other problems, please do not hesitate to return to the ER. Sepsis Event Note (ED) - Evaluation Sepsis Screening Result: No Definite Risk - Focused Exam Vital Signs: Vital Signs Temp Pulse Resp BP Pulse Ox 01/07/21 19:43 36.2 C 86 20 136/85 98
[2021-01-07] MEDS ORDERED: Sodium Chloride 0.9% 1,000 ML IV SCH (20:15)
== END 2021-01-07 22:00 | disposition home or self-care (01) ==
LOC: JD.ED 19:21
DX: R10.31 Right lower quadrant pain (principal); M54.5 Low back pain; Z76.5 Malingerer [conscious simulation]; I25.10 Atherosclerotic heart disease of native coronary artery without angina pectoris; J44.9 Chronic obstructive pulmonary disease, unspecified; Z86.16 Personal history of COVID-19; Z72.0 Tobacco use; Z79.82 Long term (current) use of aspirin; Z79.899 Other long term (current) drug therapy; Z88.2 Allergy status to sulfonamides; Z88.6 Allergy status to analgesic agent; Z88.8 Allergy status to other drugs, medicaments and biological substances
CPT/HCPCS: 36415; 80053; 82550; 83735; 85007; 85027; 86140; 96374; 96375; 99284; A9270; J1170; J2060; J7030

== ENCOUNTER 2021-03-16 11:54 | Emergency (ER) | payer MEDICARE, MEDICAID ==
[2021-03-16 12:05] VITALS: BP 112/73; PULSE 84
[2021-03-16] MEDS ORDERED: Ondansetron 4 MG/2 ML SDV IVPUSH ONE (13:56)
[2021-03-16] MEDS ORDERED: HYDROmorphone 1 MG/ML Syringe IVPUSH STA (13:56)
[2021-03-16] MEDS ORDERED: Sodium Chloride 0.9% 1,000 ML IV SCH (14:00)
--- NOTE | 2021-03-16 14:00 | EDM.PDOC ---
ED HPI GENERAL MEDICAL PROBLEM - General Chief Complaint: General Stated Complaint: L ARM PAIN X 2 WEEKS Time Seen by Provider: 03/16/21 13:39 Source of Information: Reports: Patient, RN Notes Reviewed History Limitations: Reports: No Limitations - History of Present Illness INITIAL COMMENTS - FREE TEXT/NARRATIVE: Patient is a 56-year-old female who presents to the ER today for her left shoulder/arm pain, and abdomen pain. Patient notes for the last few weeks, she has been dealing with left arm/shoulder pain, states that it seemed to start in her left upper arm, does not seem to radiate anywhere else. This is between her elbow and her shoulder joint, she states that she has had no trauma to the area and cannot member any other accidents that may have happened. She is denying any sort of neck pain that it would have radiated from. She has been using Tylenol and Aleve, but it has not been providing much relief. She is complaining of may be some numbness or tingling into the fingers at this time however she still has good rn first assist strength, but range of motion seems to be limited due to pain. She states that the pain is more of a burning sensation in nature. She is also complaining of abdomen discomfort, and has had a history of hernia repairs of an umbilical hernia. Notes that she has had a bowel movement every 2 or 3 days, this seems to be less for her. She is still able to pass gas, and she is not having any vomiting or diarrhea. She is having some nausea and chills, but again denies any fever, cough or shortness of breath. Patient notes that she has had this hernia repaired by a surgeon in [place]. Left Arm Pain Score (Numeric/FACES): 10 - Related Data Allergies Allergy/AdvReac Type Severity Reaction Status Date / Time celecoxib [From Celebrex] Allergy Severe unknown Verified 03/16/21 12:06 ketorolac tromethamine Allergy Severe Rash Verified 03/16/21 12:06 [From Toradol] lisinopril Allergy Severe Other Verified 03/16/21 12:06 pantoprazole sodium Allergy Severe Other Verified 03/16/21 12:06 [From Protonix] Sulfa (Sulfonamide Allergy Severe unknown Verified 03/16/21 12:06 Antibiotics) sumatriptan [From Imitrex] Allergy Severe Rash Verified 03/16/21 12:06 sumatriptan succinate Allergy Severe Rash Verified 03/16/21 12:06 [From Imitrex] NSAIDS (Non-Steroidal AdvReac Severe Chills Verified 03/16/21 12:06 Anti-Inflamma Home Meds: Home Meds Albuterol [Ventolin HFA] 2 puff INH Q6HR PRN 11/19/13 [History] Aspirin 325 mg PO DAILY 08/10/15 [History] atorvaSTATin [Lipitor] 40 mg PO DAILY 06/08/16 [History] PARoxetine HCl [Paxil] 1 tab PO DAILY 06/29/20 [History] LORazepam [Ativan] 1 mg PO TID PRN #21 tab 07/30/20 [Rx] Ondansetron [Zofran ODT] 4 mg PO Q8HR PRN #10 tab.dis 07/30/20 [Rx] Elviteg/Cob/Emtri/Tenofo Disop [Stribild Tablet] 1 tab PO BEDTIME 09/13/20 [History] ARIPiprazole [Abilify] 5 mg PO DAILY 03/16/21 [History] Hydrocodone/Acetaminophen [HYDROcodone-Acetaminophen 5-325 MG] 1 each PO Q6H PRN #12 tablet 03/16/21 [Rx] predniSONE 20 mg PO ASDIRECTED #15 tab 03/16/21 [Rx] Past Medical History HEENT History: Reports: Impaired Vision Cardiovascular History: Reports: CAD Other Cardiovascular History: 4 years ago Respiratory History: Reports: COPD Gastrointestinal History: Reports: Diverticulosis, Other (See Below) Other Gastrointestinal History: gastroparesis Genitourinary History: Reports: Other (See Below) [employer]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: Musculoskeletal History: Reports: Fibromyalgia, Other (See Below) Other Musculoskeletal History: neuropathy in both feet Neurological History: Reports: Neuropathy, Peripheral Other Neuro History: Fibromyalgia Psychiatric History: Reports: Anxiety, Depression, PTSD, Other (See Below) Endocrine/Metabolic History: Reports: None Hematologic History: Reports: None Immunologic History: Reports: HIV Oncologic (Cancer) History: Reports: None Dermatologic History: Reports: None - Infectious Disease History Infectious Disease History: Reports: HIV-Human Immunodeficiency Virus, Novel Coronavirus - Past Surgical History HEENT Surgical History: Reports: Adenoidectomy, Tonsillectomy Cardiovascular Surgical History: Reports: Coronary Artery Stent, Other (See Below) Other Cardiovascular Surgeries/Procedures: 2 angiograms GI Surgical History: Reports: Cholecystectomy, Hernia, Abdominal, Hernia, Inguinal Female Surgical History: Reports: Hysterectomy, Tubal Ligation, Other (See Be low) Other Female Surgeries/Procedures: bladder sling Social & Family History - Family History Family Medical History: No Pertinent Family History Cardiac: Reports: CAD, Hypertension - Tobacco Use Tobacco Use Status *Q: Current Every Day Tobacco User Years of Tobacco use: 40 Packs/Tins Daily: 0.3 - Caffeine Use Caffeine Use: Reports: Coffee, Soda - Recreational Drug Use Recreational Drug Use: Yes Recreational Drug Type: Reports: Marijuana/Hashish - Living Situation & Occupation Living situation: Reports: Single, Alone Occupation: Unemployed ED ROS GENERAL - Review of Systems Review Of Systems: Comprehensive ROS is negative, except as noted in HPI. ED EXAM, GENERAL - Physical Exam Exam: See Below Exam Limited By: No Limitations General Appearance: Alert, WD/WN, No Apparent Distress Respiratory/Chest: No Respiratory Distress, Lungs Clear, Normal Breath Sounds, No Accessory Muscle Use, Chest Non-Tender Cardiovascular: Normal Peripheral Pulses, Regular Rate, Rhythm, No Edema Peripheral Pulses: 2+: Radial (L), Radial (R) GI/Abdominal: Soft, No Distention, No Mass, Tender (generalized, she does have exquisite tenderness over superior umbilicus where her hernia lies.), Abnormal Bowel Sounds (hyperactive tones x 4 quadrants) Extremities: Normal Inspection, Normal Capillary Refill, Limited Range of Motion (of left arm/shoulder d/t pain, all ROM seems to be limited, but worse with abduction and flexion (forward movement) of arm/shoulder.) Neurological: Alert, Oriented, Normal Cognition, No Motor/Sensory Deficits Psychiatric: Normal Affect, Normal Mood Skin Exam: Warm, Dry, Intact, Normal Color, No Rash Course - Vital Signs Last Recorded V/S: Last Vital Signs Temp 96.4 F L 03/16/21 12:03 Pulse 84 03/16/21 12:03 Resp 18 03/16/21 12:03 BP 112/73 03/16/21 12:03 Pulse Ox 98 03/16/21 12:03 - Orders/Labs/Meds Orders: Active Orders 24 hr Category Date Time Status Peripheral IV Care [RC] . DIRECTED Care 03/16/21 13:56 Ordered Sodium Chloride 0.9% [Normal Saline] 1,000 ml Med 03/16/21 14:00 Ordered IV ASDIRECTED Sodium Chloride 0.9% [Saline Flush] Med 03/16/21 13:56 Ordered 10 ml FLUSH ASDIRECTED PRN Peripheral IV Insertion Adult [OM.PC] Stat Oth 03/16/21 13:56 Ordered Medication Orders Sodium Chloride (Normal Saline) 1,000 mls @ 999 mls/hr IV ASDIRECTED IVET Last Admin: 03/16/21 14:09 Dose: 999 mls/hr Documented by: AIMEE Sodium Chloride (Sodium Chloride 0.9% 10 Ml Syringe) 10 ml FLUSH ASDIRECTED PRN PRN Reason: Keep Vein Open Last Admin: 03/16/21 15:04 Dose: 10 ml Documented by: Admin: 03/16/21 14:10 Dose: 10 ml Documented by: AIMEE Labs: Laboratory Tests 03/16/21 03/16/21 03/16/21 Range/Units 14:00 14:00 14:00 WBC 8.03 (3.98-10.04) K/mm3 RBC 4.18 (3.98-5.22) M/mm3 Hgb 12.6 (11.2-15.7) gm/dl Hct 38.5 (34.1-44.9) % MCV 92.1 (79.4-94.8) fl MCH 30.1 (25.6-32.2) pg MCHC 32.7 (32.2-35.5) g/dl RDW Std Deviation 45.8 (36.4-46.3) fL Plt Count 226 (182-369) K/mm3 MPV 8.7 L (9.4-12.3) fl Neut % (Auto) 64.8 (34.0-71.1) % Lymph % (Auto) 26.5 (19.3-51.7) % [place] % (Auto) 6.4 (4.7-12.5) % Eos % (Auto) 2.0 (0.7-5.8) Baso % (Auto) 0.2 (0.1-1.2) % Neut # (Auto) 5.20 (1.56-6.13) K/mm3 Lymph # (Auto) 2.13 (1.18-3.74) K/mm3 [place] # (Auto) 0.51 H (0.24-0.36) K/mm3 Eos # (Auto) 0.16 (0.04-0.36) K/mm3 Baso # (Auto) 0.02 (0.01-0.08) K/mm3 Sodium 143 (136-145) mEq/L Potassium 3.9 (3.5-5.1) mEq/L Chloride 107 (98-107) mEq/L Carbon Dioxide 28 (21-32) mEq/L Anion Gap 11.9 (5-15) BUN 12 (7-18) mg/dL Creatinine 0.8 (0.55-1.02) mg/dL Est Cr Clr Drug Dosing 64.18 mL/min Estimated GFR (MDRD) > 60 (>60) mL/min BUN/Creatinine Ratio 15.0 (14-18) Glucose 109 H (70-99) mg/dL Calcium 8.6 (8.5-10.1) mg/dL Total Bilirubin 0.2 (0.2-1.0) mg/dL AST 12 L (15-37) U/L ALT 23 (14-59) U/L Alkaline Phosphatase 114 (46-116) U/L C-Reactive Protein 0.7 (<1.0) mg/dL Total Protein 7.0 (6.4-8.2) g/dl Albumin 3.4 (3.4-5.0) g/dl Globulin 3.6 gm/dL Albumin/Globulin Ratio 0.9 L (1-2) Lipase 71 L (73-393) U/L Urine Color Yellow (Yellow) Urine Appearance Clear (Clear) Urine pH 6.5 (5.0-8.0) Ur Specific [place] 1.015 (1.005-1.030) Urine Protein Negative (Negative) Urine Glucose (UA) Negative (Negative) Urine Ketones Negative (Negative) Urine Occult Blood Trace-intact H (Negative) Urine Nitrite Negative (Negative) Urine Bilirubin Negative (Negative) Urine Urobilinogen 0.2 (0.2-1.0) Ur Leukocyte Esterase Negative (Negative) Urine RBC 5-10 H (0-5) /hpf Urine WBC 0-5 (0-5) /hpf Ur Squamous Epith Cells 0-5 (0-5) /hpf Urine Bacteria Few (FEW) /hpf Urine Mucus Few (FEW) /hpf Meds: Medications Generic Name Dose Route Start Last Admin Trade Name Freeleno PRN Reason Stop Dose Admin Sodium Chloride 1,000 mls @ 999 mls/hr 03/16/21 14:00 03/16/21 14:09 Normal Saline IV 999 mls/hr ASDIRECTED IVET Administration Sodium Chloride 10 ml 03/16/21 13:56 03/16/21 15:04 Sodium Chloride 0.9% 10 Ml Syringe FLUSH 10 ml ASDIRECTED PRN Administration Keep Vein Open Discontinued Medications Generic Name Dose Route Start Last Admin Trade Name Freeleno PRN Reason Stop Dose Admin Diatrizoate Meglum/Diatrizoate Sod 120 ml 03/16/21 14:14 03/16/21 15:04 Diatrizoate Meglumine/Diatrizoate Sodium 37% 120 Ml Bottle PO 03/16/21 14:15 45 ml ONETIME ONE Administration Hydromorphone HCl 1 mg 03/16/21 13:56 03/16/21 14:10 Hydromorphone 1 Mg/Ml Syringe IVPUSH 03/16/21 13:57 1 mg ONETIME STA Administration Iopamidol 100 ml 03/16/21 14:14 03/16/21 15:04 Iopamidol 612 Mg/Ml 100 Ml Bottle IVPUSH 03/16/21 14:15 100 ml ONETIME ONE Administration Ondansetron HCl 4 mg 03/16/21 13:56 03/16/21 14:09 Ondansetron 4 Mg/2 Ml Sdv IVPUSH 03/16/21 13:57 4 mg ONETIME ONE Administration Sodium Chloride 10 ml 03/16/21 14:14 Sodium Chloride 0.9% 10 Ml Sdv FLUSH 03/16/21 14:15 ONETIME ONE - Re-Assessments/Exams Free Text/Narrative Re-Assessment/Exam: 03/16/21 14:04 Patient presents to the ER for her left shoulder/arm pain, and abdomen discomfort/hernia issues. We will go ahead and get abdomen pelvis CT with oral and IV contrast, get some basic labs, give her some pain medication nausea medications. I do believe her shoulder pain is more musculoskeletal/nerve pain in etiology. 03/16/21 15:18 Laboratory evaluation demonstrates no focal abnormalities. CT has been performed, awaiting official radiology read however. 03/16/21 15:41 CT has been performed, there are no acute abnormalities appreciated on the CT. There were 3 anterior abdominal wall hernias containing fat that were noted on a prior exam none show strangulation or incarceration. Patient did note that she is received some pain control with medications given her today, I do again suspect that her shoulder pain is more musculoskeletal in nature, we will go ahead and give her something a little bit stronger than Tylenol and Aleve, and a course of prednisone for suspected nerve involvement. Departure - Departure Time of Disposition: 15:44 Disposition: Home, Self-Care 01 Condition: Good Clinical Impression: Left shoulder pain Qualifiers: Chronicity: acute Qualified Code(s): M25.512 - Pain in left shoulder Abdominal hernia Qualifiers: Hernia type: unspecified Obstruction and gangrene presence: without obstruction or gangrene Recurrence: recurrent Qualified Code(s): K45.8 - Other specified abdominal hernia without obstruction or gangrene - Discharge Information *PRESCRIPTION DRUG MONITORING PROGRAM REVIEWED*: Yes *COPY OF PRESCRIPTION DRUG MONITORING REPORT IN PATIENT LATOSHA: No Instructions: Musculoskeletal Pain Referrals: Do Saini MD [Primary Care Provider] - Forms: ED Department Discharge Additional Instructions: You were evaluated in the ER today for your left arm pain, and abdominal discomfort. A CT of your abdomen and pelvis demonstrate no acute obstruction regarding your previous abdominal hernias. Your shoulder/arm pain is thought likely due to nerve inflammation and musculoskeletal etiology. You were given a prescription for a strong pain medication, hydrocodone/acetaminophen 5/325 mg, please take 1 tab every 6 hours as needed for pain not relieved by Tylenol or ibuprofen alone. Please note this medication does contain Tylenol in it, so do not take more than 4000 mg in a 24- hour time span. These medications can be addictive, so please take as few as possible to achieve adequate pain control. These meds can also be quite constipating, recommend that you increase your oral fluid intake and take a stoo l softener like MiraLAX while taking these medications. Do not drive while taking this medication. Please caution use of the stronger pain medications, as it can cause increased respiratory sedation. You have been given a prescription for prednisone, please take as directed on the bottle until gone. This medication was electronically sent to [facility] the [facility]. Please follow-up with your regular care provider for ongoing management of your health symptoms, and for ER follow-up to make sure that your symptoms are getting better as expected. You might need referred to Ortho, regarding your left arm/shoulder issue for ongoing management. Do not hesitate to return to the ER at any time if symptoms change or worsen. Sepsis Event Note (ED) - Evaluation Sepsis Screening Result: No Definite Risk - Focused Exam Vital Signs: Vital Signs Temp Pulse Resp BP Pulse Ox 03/16/21 12:03 96.4 F L 84 18 112/73 98 - My Orders Last 24 Hours: My Active Orders 03/16/21 13:56 Peripheral IV Care [RC] . DIRECTED Sodium Chloride 0.9% [Saline Flush] 10 ml FLUSH ASDIRECTED PRN Peripheral IV Insertion Adult [OM.PC] Stat 03/16/21 14:00 Sodium Chloride 0.9% [Normal Saline] 1,000 ml IV ASDIRECTED - Assessment/Plan Last 24 Hours: My Active Orders 03/16/21 13:56 Peripheral IV Care [RC] . DIRECTED Sodium Chloride 0.9% [Saline Flush] 10 ml FLUSH ASDIRECTED PRN Peripheral IV Insertion Adult [OM.PC] Stat 03/16/21 14:00 Sodium Chloride 0.9% [Normal Saline] 1,000 ml IV ASDIRECTED
[2021-03-16] MEDS: Sodium Chloride 0.9% 10 ML Syringe FLUSH PRN ×2 (14:10→15:04)
[2021-03-16] MEDS ORDERED: Iopamidol 612 MG/ML 100 ML Bottle IVPUSH ONE (14:14)
[2021-03-16] MEDS ORDERED: Diatrizoate Meglumine/Diatrizoate Sodium 37% 120 ML Bottle PO ONE (14:14)
[2021-03-16] MEDS ORDERED: Sodium Chloride 0.9% 10 ML SDV FLUSH ONE (14:14)
--- NOTE | 2021-03-16 15:30 | CT ---
CT abdomen and pelvis Technique: Multiple axial sections were obtained from above the dome of the diaphragm inferiorly through the pubic symphysis. Intravenous and oral contrast were given. Delayed images were obtained through the bladder. Reconstructed coronal and sagittal images were obtained. Comparison: Prior CT abdomen and pelvis study of 01/04/21. Findings: Visualized lung bases show nothing acute. Liver shows no focal parenchymal abnormality. Spleen size is normal. Adrenal glands show no nodule. Pancreas is within normal limits. Gallbladder is not seen. Prior cholecystectomy clips are seen. Kidneys show symmetric contrast enhancement with no hydronephrosis or mass being seen. Abdominal aorta shows no aneurysm. No retroperitoneal adenopathy or mesenteric abnormalities are seen. No pelvic mass or adenopathy is seen. Delayed images show contrast within the distal ureters and within the bladder. Appendix is seen which is normal in size. Two adjacent fat-containing anterior abdominal wall hernias are seen superior to the umbilicus. Third fat-containing hernia is inferior to the umbilicus. No additional abdominal wall hernia is present. Previous abdominal wall surgery is noted within the right lower abdomen. Bone window settings were reviewed which show minimal degenerative change within the spine. No acute osseous abnormality is seen. Impression: 1. Three anterior abdominal wall hernias containing fat. These are noted on prior exam. 2. Prior cholecystectomy. Nothing acute is otherwise seen on CT study of the abdomen and pelvis. Diagnostic code #2
== END 2021-03-16 15:58 | disposition home or self-care (01) ==
LOC: JD.ED 11:54
DX: M25.512 Pain in left shoulder (principal); K46.9 Unspecified abdominal hernia without obstruction or gangrene; I25.10 Atherosclerotic heart disease of native coronary artery without angina pectoris; J44.9 Chronic obstructive pulmonary disease, unspecified; Z72.0 Tobacco use; Z88.1 Allergy status to other antibiotic agents; Z88.8 Allergy status to other drugs, medicaments and biological substances; Z88.5 Allergy status to narcotic agent; Z88.2 Allergy status to sulfonamides; Z88.6 Allergy status to analgesic agent; Z79.82 Long term (current) use of aspirin; Z79.899 Other long term (current) drug therapy
CPT/HCPCS: 36415; 74177; 80053; 81001; 83690; 85025; 86140; 96374; 96375; 99284; J1170; J2405; J7030; Q9963; Q9967

== ENCOUNTER 2021-05-13 17:59 | Emergency (ER) | payer MEDICARE, MEDICAID ==
[2021-05-13 19:16] VITALS: BP 139/90; PULSE 96
[2021-05-13] MEDS ORDERED: Sodium Chloride 0.9% 10 ML Syringe FLUSH PRN (19:40)
[2021-05-13] MEDS ORDERED: HYDROmorphone 0.5 MG/0.5 ML Syringe IVPUSH ONE (19:48)
[2021-05-13] MEDS ORDERED: Ondansetron 4 MG/2 ML SDV IVPUSH ONE (19:48)
--- NOTE | 2021-05-13 21:01 | EDM.PDOC ---
ED HPI GENERAL MEDICAL PROBLEM - General Chief Complaint: Back Pain or Injury Stated Complaint: POSS KIDNEY INFECTION Time Seen by Provider: 05/13/21 19:39 Source of Information: Reports: Patient, RN Notes Reviewed History Limitations: Reports: No Limitations - History of Present Illness INITIAL COMMENTS - FREE TEXT/NARRATIVE: Patient is a 56-year-old female presenting to the emergency department with complaints of bilateral mid back pain. She reports that she has been having urinary frequency and that her urine has been stronger than normal. Denies any obvious blood in her urine. She has no history of kidney stones. Denies any known injuries to her back. She has tizanidine at home which she is used with little relief. She also took Tylenol with little relief. She is had no fever, chills. She does feel nauseous but has not been vomiting. Lower Back Pain Score (Numeric/FACES): 9 - Related Data Allergies Allergy/AdvReac Type Severity Reaction Status Date / Time ketorolac tromethamine Allergy Intermediate Rash Verified 03/17/21 11:36 [From Toradol] sumatriptan [From Imitrex] Allergy Intermediate Rash Verified 03/17/21 11:36 sumatriptan succinate Allergy Intermediate Rash Verified 03/17/21 11:36 [From Imitrex] celecoxib [From Celebrex] Allergy Unknown unknown Verified 03/17/21 11:36 lisinopril Allergy Unknown Other Verified 03/17/21 11:36 pantoprazole sodium Allergy Unknown Other Verified 03/17/21 11:36 [From Protonix] Sulfa (Sulfonamide Allergy Unknown unknown Verified 03/17/21 11:36 Antibiotics) NSAIDS (Non-Steroidal AdvReac Mild Chills Verified 03/17/21 11:36 Anti-Inflamma Home Meds: Home Meds Albuterol [Ventolin HFA] 2 puff INH Q6HR PRN 11/19/13 [History] Aspirin 81 mg PO DAILY 08/10/15 [History] atorvaSTATin [Lipitor] 40 mg PO DAILY 06/08/16 [History] PARoxetine HCl [Paxil] 1 tab PO DAILY 06/29/20 [History] LORazepam [Ativan] 1 mg PO TID PRN #21 tab 07/30/20 [Rx] Ondansetron [Zofran ODT] 4 mg PO Q8HR PRN #10 tab.dis 07/30/20 [Rx] Elviteg/Cob/Emtri/Tenofo Disop [Stribild Tablet] 1 tab PO BEDTIME 09/13/20 [History] ARIPiprazole [Abilify] 5 mg PO DAILY 03/16/21 [History] Hydrocodone/Acetaminophen [Hydrocodone-Acetamin 5-325 mg] 1 each PO Q4H PRN #12 tablet 05/13/21 [Rx] Metoprolol Succinate 50 mg PO DAILY 05/13/21 [History] QUEtiapine Fumarate [Seroquel] 100 mg PO BEDTIME 05/13/21 [History] carvediloL [Coreg] 3.25 mg PO BID 05/13/21 [History] rOPINIRole [Requip] 0.5 mg PO ASDIRECTED PRN 05/13/21 [History] tiZANidine [Zanaflex] 4 mg PO ASDIRECTED 05/13/21 [History] Past Medical History HEENT History: Reports: Impaired Vision Cardiovascular History: Reports: CAD Other Cardiovascular History: 4 years ago Respiratory History: Reports: COPD Gastrointestinal History: Reports: Diverticulosis, Other (See Below) Other Gastrointestinal History: gastroparesis Genitourinary History: Reports: Other (See Below) [employer] History: Reports: Musculoskeletal History: Reports: Fibromyalgia, Other (See Below) Other Musculoskeletal History: neuropathy in both feet Neurological History: Reports: Neuropathy, Peripheral Other Neuro History: Fibromyalgia Psychiatric History: Reports: Anxiety, Depression, PTSD Endocrine/Metabolic History: Reports: None Hematologic History: Reports: None Immunologic History: Reports: HIV Oncologic (Cancer) History: Reports: None Dermatologic History: Reports: None - Infectious Disease History Infectious Disease History: Reports: HIV-Human Immunodeficiency Virus, Novel Coronavirus - Past Surgical History Head Surgeries/Procedures: Reports: None HEENT Surgical History: Reports: Adenoidectomy, Tonsillectomy Cardiovascular Surgical History: Reports: Coronary Artery Stent, Other (See Below) Other Cardiovascular Surgeries/Procedures: 2 angiograms GI Surgical History: Reports: Cholecystectomy, Hernia, Abdominal, Hernia, Inguinal Female Surgical History: Reports: Hysterectomy, Tubal Ligation, Other (See Below) Other Female Surgeries/Procedures: bladder sling Social & Family History - Family History Family Medical History: No Pertinent Family History Cardiac: Reports: CAD, Hypertension - Tobacco Use Tobacco Use Status *Q: Current Every Day Tobacco User Years of Tobacco use: 20 Packs/Tins Daily: 0.3 - Caffeine Use Caffeine Use: Reports: Coffee, Soda, Tea - Recreational Drug Use Recreational Drug Type: Reports: Marijuana/Hashish - Living Situation & Occupation Living situation: Reports: Single, Alone Occupation: Unemployed ED ROS GENERAL - Review of Systems Review Of Systems: Comprehensive ROS is negative, except as noted in HPI. ED EXAM,LOWER BACK PAIN/INJURY - Physical Exam Exam: See Below Exam Limited By: No Limitations General Appearance: Alert, WD/WN, No Apparent Distress Respiratory/Chest: No Respiratory Distress, Lungs Clear, Normal Breath Sounds, No Accessory Muscle Use, Chest Non-Tender Cardiovascular: Normal Peripheral Pulses, Regular Rate, Rhythm, No Edema, No Gallop, No JVD, No Murmur, No Rub Back Exam: CVA Tenderness (L), CVA Tenderness (R), Other (Tenderness to palpation T10-T12. Paraspinal tenderness to bilateral flanks extending to the buttocks.) Neurological: Alert, Normal Mood/Affect, Normal Dorsiflexion, CN II-XII Intact, Normal Plantar Flexion, Normal Gait, Normal Reflexes, No Motor/Sensory Deficits, Oriented x 3 Psychiatric: Normal Affect, Normal Mood Skin Exam: Warm, Dry, Intact, Normal Color, No Rash Course - Vital Signs Last Recorded V/S: Last Vital Signs Temp 98.5 F 05/13/21 19:14 Pulse 96 05/13/21 19:14 Resp 20 05/13/21 19:14 BP 139/90 05/13/21 19:14 Pulse Ox 97 05/13/21 19:14 - Orders/Labs/Meds Orders: Active Orders 24 hr Category Date Time Status Peripheral IV Care [RC] . DIRECTED Care 05/13/21 19:40 Active Sodium Chloride 0.9% [Saline Flush] Med 05/13/21 19:40 Active 10 ml FLUSH ASDIRECTED PRN Peripheral IV Insertion Adult [OM.PC] Stat Oth 05/13/21 19:40 Ordered Medication Orders Sodium Chloride (Sodium Chloride 0.9% 10 Ml Syringe) 10 ml FLUSH ASDIRECTED PRN PRN Reason: Keep Vein Open Last Admin: 05/13/21 20:00 Dose: 10 ml Documented by: AIMEE Labs: Laboratory Tests 05/13/21 05/13/21 05/13/21 Range/Units 19:53 19:53 20:14 WBC 8.74 (3.98-10.04) K/mm3 RBC 3.90 L (3.98-5.22) M/mm3 Hgb 11.9 (11.2-15.7) gm/dl Hct 37.8 (34.1-44.9) % MCV 96.9 H D (79.4-94.8) fl MCH 30.5 (25.6-32.2) pg MCHC 31.5 L (32.2-35.5) g/dl RDW Std Deviation 51.3 H (36.4-46.3) fL Plt Count 198 (182-369) K/mm3 MPV 8.9 L (9.4-12.3) fl Neut % (Auto) 55.2 (34.0-71.1) % Lymph % (Auto) 33.0 (19.3-51.7) % [place] % (Auto) 9.0 (4.7-12.5) % Eos % (Auto) 1.8 (0.7-5.8) Baso % (Auto) 0.2 (0.1-1.2) % Neut # (Auto) 4.82 (1.56-6.13) K/mm3 Lymph # (Auto) 2.88 (1.18-3.74) K/mm3 [place] # (Auto) 0.79 H (0.24-0.36) K/mm3 Eos # (Auto) 0.16 (0.04-0.36) K/mm3 Baso # (Auto) 0.02 (0.01-0.08) K/mm3 Sodium 140 (136-145) mEq/L Potassium 4.1 (3.5-5.1) mEq/L Chloride 105 (98-107) mEq/L Carbon Dioxide 28 (21-32) mEq/L Anion Gap 11.1 (5-15) BUN 15 (7-18) mg/dL Creatinine 0.9 (0.55-1.02) mg/dL Est Cr Clr Drug Dosing 57.05 mL/min Estimated GFR (MDRD) > 60 (>60) mL/min BUN/Creatinine Ratio 16.7 (14-18) Glucose 108 H (70-99) mg/dL Calcium 8.2 L (8.5-10.1) mg/dL Total Bilirubin 0.2 (0.2-1.0) mg/dL AST 16 (15-37) U/L ALT 25 (14-59) U/L Alkaline Phosphatase 130 H (46-116) U/L C-Reactive Protein < 0.2 (<1.0) mg/dL Total Protein 7.2 (6.4-8.2) g/dl Albumin 3.5 (3.4-5.0) g/dl Globulin 3.7 gm/dL Albumin/Globulin Ratio 1.0 (1-2) Urine Color Yellow (Yellow) Urine Appearance Clear (Clear) Urine pH 7.0 (5.0-8.0) Ur Specific [place] 1.025 (1.005-1.030) Urine Protein Negative (Negative) Urine Glucose (UA) Negative (Negative) Urine Ketones Negative (Negative) Urine Occult Blood Negative (Negative) Urine Nitrite Negative (Negative) Urine Bilirubin Negative (Negative) Urine Urobilinogen 0.2 (0.2-1.0) Ur Leukocyte Esterase Negative (Negative) Urine RBC 0-5 (0-5) /hpf Urine WBC 0-5 (0-5) /hpf Ur Squamous Epith Cells 5-10 H (0-5) /hpf Urine Bacteria Occasional (FEW) /hpf Urine Mucus Not seen (FEW) /hpf Meds: Medications Generic Name Dose Route Start Last Admin Trade Name Ioana PRN Reason Stop Dose Admin Sodium Chloride 10 ml 05/13/21 19:40 05/13/21 20:00 Sodium Chloride 0.9% 10 Ml Syringe FLUSH 10 ml ASDIRECTED PRN Administration Keep Vein Open Discontinued Medications Generic Name Dose Route Start Last Admin Trade Name Ioana PRN Reason Stop Dose Admin Hydromorphone HCl 0.5 mg 05/13/21 19:48 05/13/21 20:00 Hydromorphone 0.5 Mg/0.5 Ml Syringe IVPUSH 05/13/21 19:49 0.5 mg ONETIME ONE Administration Ondansetron HCl 4 mg 05/13/21 19:48 05/13/21 20:00 Ondansetron 4 Mg/2 Ml Sdv IVPUSH 05/13/21 19:49 4 mg ONETIME ONE Administration - Re-Assessments/Exams Free Text/Narrative Re-Assessment/Exam: Patient is a 56-year-old female presenting to the emergency department with complaints of progressively worsening back pain over the course the last few days. She reports urinary frequency and foul-smelling urine but has had no fever, chills, or vomiting. Reports she does feel nauseous. On exam, she has superficial tenderness to palpation throughout her bilateral flanks as well as T10-T12. I suspect this is musculoskeletal in nature. I have ordered blood work and urinalysis. I will give her Dilaudid 0.5 mg IV and Zofran 4 mg IV. 05/13/21 20:57 Hematology and urinalysis are unremarkable. Discussed results with patient. I will write a short prescription of hydrocodone with Tylenol. She reports she cannot take NSAIDs because it interacts with her HIV medications. Recommend routine Tylenol and tizanidine as needed. If symptoms not improve over the next few days, she should follow-up in the clinic. Discharge instructions as documented. Departure - Departure Time of Disposition: 20:57 Disposition: Home, Self-Care 01 Condition: Good Clinical Impression: Back pain Qualifiers: Back pain location: low back pain Chronicity: acute Back pain laterality: bilateral Sciatica presence: without sciatica Qualified Code(s): M54.5 - Low back pain - Discharge Information *PRESCRIPTION DRUG MONITORING PROGRAM REVIEWED*: Yes *COPY OF PRESCRIPTION DRUG MONITORING REPORT IN PATIENT LATOSHA: No Prescriptions: Hydrocodone/Acetaminophen [Hydrocodone-Acetamin 5-325 mg] 1 each PO Q4H PRN #12 tablet PRN Reason: Pain Instructions: Acute Back Pain, Adult Referrals: Kenny Craig MD [Primary Care Provider] - Additional Instructions: You were seen in the emergency department today for bilateral low back pain and urinary frequency. Work-up included blood work and urinalysis. This was found to be normal. Your back pain is musculoskeletal in nature. While in the ER, you received pain medications and nausea medications. Recommend routine Tylenol as well as your tizanidine as needed. For pain not relieved by this, short prescription of hydrocodone with Tylenol has been provided. Take this only as prescribed. Do not work or drive for 12 hours after taking this as it can be sedating. If symptoms fail to improve over the next few days, recommend follow- up in the clinic. Return to ER as needed. Sepsis Event Note (ED) - Focused Exam Vital Signs: Vital Signs Temp Pulse Resp BP Pulse Ox 05/13/21 19:14 98.5 F 96 20 139/90 97 - My Orders Last 24 Hours: My Active Orders 05/13/21 19:40 Peripheral IV Care [RC] . DIRECTED Sodium Chloride 0.9% [Saline Flush] 10 ml FLUSH ASDIRECTED PRN Peripheral IV Insertion Adult [OM.PC] Stat - Assessment/Plan Last 24 Hours: My Active Orders 05/13/21 19:40 Peripheral IV Care [RC] . DIRECTED Sodium Chloride 0.9% [Saline Flush] 10 ml FLUSH ASDIRECTED PRN Peripheral IV Insertion Adult [OM.PC] Stat
== END 2021-05-13 21:04 | disposition home or self-care (01) ==
LOC: JD.ED 17:59
DX: M54.42 Lumbago with sciatica, left side (principal); M54.41 Lumbago with sciatica, right side; J44.9 Chronic obstructive pulmonary disease, unspecified; G62.9 Polyneuropathy, unspecified; I25.10 Atherosclerotic heart disease of native coronary artery without angina pectoris; B20 Human immunodeficiency virus [HIV] disease; Z88.6 Allergy status to analgesic agent; Z88.8 Allergy status to other drugs, medicaments and biological substances; Z88.2 Allergy status to sulfonamides; Z79.82 Long term (current) use of aspirin; Z79.899 Other long term (current) drug therapy; Z72.0 Tobacco use
CPT/HCPCS: 36415; 80053; 81001; 85025; 86140; 96374; 96375; 99283; J1170; J2405

== ENCOUNTER 2022-02-01 12:56 | Emergency (ER) | payer MEDICARE, MEDICAID ==
[2022-02-01] MEDS ORDERED: Sodium Chloride 0.9% 10 ML Syringe FLUSH PRN (14:47)
[2022-02-01 15:36] LABS: CORONAVIRUS COVID-19 NAA NEGATIVE (NEGATIVE)
[2022-02-01] MEDS ORDERED: Iopamidol 612 MG/ML 100 ML Bottle IVPUSH ONE (16:07)
[2022-02-01 18:16] VITALS: BP 101/86; PULSE 82
== END 2022-02-01 18:15 | disposition home or self-care (01) ==
LOC: JD.ED 12:56
DX: R42 Dizziness and giddiness (principal); I25.10 Atherosclerotic heart disease of native coronary artery without angina pectoris; J44.9 Chronic obstructive pulmonary disease, unspecified; F17.210 Nicotine dependence, cigarettes, uncomplicated; Z86.16 Personal history of COVID-19; Z88.6 Allergy status to analgesic agent; Z88.2 Allergy status to sulfonamides; Z88.8 Allergy status to other drugs, medicaments and biological substances; Z79.82 Long term (current) use of aspirin; Z79.899 Other long term (current) drug therapy; Z20.822 Contact with and (suspected) exposure to COVID-19
CPT/HCPCS: 0240U; 36415; 71045; 74177; 80053; 81001; 83735; 84484; 85025; 86140; 93005; 99284; J3490; Q9967; 93010

== ENCOUNTER 2022-02-03 12:29 | Emergency (ER) | payer MEDICARE, MEDICAID ==
[2022-02-03 13:21] VITALS: BP 114/89; PULSE 82
[2022-02-03] MEDS ORDERED: Acetaminophen/HYDROcodone 325-5 MG Tab PO ONE (13:43)
[2022-02-03] MEDS ORDERED: Ondansetron 4 MG/2 ML SDV IVPUSH ONE (13:43)
[2022-02-03] MEDS ORDERED: Ondansetron 4 MG Tab.DIS PO ONE (14:17)
[2022-02-03 14:34] LABS: ESTIMATED GFR 53 mL/min (>60)
== END 2022-02-03 14:00 | disposition home or self-care (01) ==
LOC: JD.ED 12:29
DX: R07.89 Other chest pain (principal); R11.0 Nausea; I25.10 Atherosclerotic heart disease of native coronary artery without angina pectoris; J44.9 Chronic obstructive pulmonary disease, unspecified; F17.210 Nicotine dependence, cigarettes, uncomplicated; Z88.6 Allergy status to analgesic agent; Z88.2 Allergy status to sulfonamides; Z88.8 Allergy status to other drugs, medicaments and biological substances; Z79.82 Long term (current) use of aspirin; Z79.899 Other long term (current) drug therapy
CPT/HCPCS: 36415; 71045; 80053; 84484; 85025; 85652; 86140; 93005; 99285; A9270

== ENCOUNTER 2022-06-10 15:12 | Emergency (ER) | payer MEDICARE, MEDICAID ==
[2022-06-10 15:46] VITALS: BP 123/79; PULSE 88
[2022-06-10] MEDS ORDERED: Ondansetron 4 MG/2 ML SDV IVPUSH ONE (16:18)
[2022-06-10] MEDS ORDERED: Sodium Chloride 0.9% 1,000 ML IV ONE (16:18)
[2022-06-10] MEDS ORDERED: Acetaminophen 325 MG Tab PO ONE (16:18)
[2022-06-10 17:27] LABS: ESTIMATED GFR 74 mL/min (>60)
== END 2022-06-10 18:18 | disposition home or self-care (01) ==
LOC: JD.ED 15:12
DX: N30.01 Acute cystitis with hematuria (principal); I25.10 Atherosclerotic heart disease of native coronary artery without angina pectoris; J44.9 Chronic obstructive pulmonary disease, unspecified; F17.210 Nicotine dependence, cigarettes, uncomplicated; Z88.8 Allergy status to other drugs, medicaments and biological substances; Z88.2 Allergy status to sulfonamides; Z79.82 Long term (current) use of aspirin; Z79.899 Other long term (current) drug therapy; Z86.16 Personal history of COVID-19
CPT/HCPCS: 36415; 80053; 81001; 83735; 85025; 86140; 87086; 96361; 96374; 99284; A9270; J2405; J7030

== ENCOUNTER 2022-07-10 18:02 | Emergency (ER) | payer MEDICARE, MEDICAID ==
[2022-07-10] MEDS ORDERED: Sodium Chloride 0.9% 10 ML Syringe FLUSH PRN (19:06)
[2022-07-10] MEDS ORDERED: HYDROmorphone 1 MG/ML Syringe IVPUSH STA (19:06)
[2022-07-10] MEDS ORDERED: Ondansetron 4 MG/2 ML SDV IVPUSH ONE (19:06)
[2022-07-10] MEDS ORDERED: Sodium Chloride 0.9% 1,000 ML IV SCH (19:15)
[2022-07-10 19:34] LABS: ESTIMATED GFR 85 mL/min (>60)
[2022-07-10 19:35] VITALS: BP 127/74; PULSE 89
[2022-07-10] MEDS ORDERED: Iopamidol 755 Mg/ML 100 ML Bottle IVPUSH ONE (20:18)
[2022-07-10] MEDS ORDERED: Iopamidol 612 MG/ML 100 ML Bottle IVPUSH ONE (20:24)
[2022-07-10] MEDS ORDERED: Morphine 4 MG/ML Syringe IVPUSH ONE (20:42)
[2022-07-10] MEDS ORDERED: HYDROmorphone 0.5 MG/0.5 ML Syringe IVPUSH ONE (22:08)
== END 2022-07-10 22:30 ==
LOC: JD.ED 18:02
DX: M54.50 Low back pain, unspecified (principal); R93.5 Abnormal findings on diagnostic imaging of other abdominal regions, including retroperitoneum; I25.10 Atherosclerotic heart disease of native coronary artery without angina pectoris; J44.9 Chronic obstructive pulmonary disease, unspecified; K31.84 Gastroparesis; Z88.8 Allergy status to other drugs, medicaments and biological substances; Z88.2 Allergy status to sulfonamides; Z79.82 Long term (current) use of aspirin; Z79.899 Other long term (current) drug therapy; Z86.16 Personal history of COVID-19
CPT/HCPCS: 36415; 74177; 80053; 81001; 83690; 85025; 86140; 87086; 96361; 96374; 96375; 96376; 99285; G0008; J1170; J2270; J2405; J3490; J7030; Q9967

== ENCOUNTER 2022-08-20 15:32 | Emergency (ER) | payer MEDICARE, MEDICAID ==
[2022-08-20 17:10] VITALS: BP 126/85; PULSE 94
[2022-08-20] MEDS ORDERED: Sodium Chloride 0.9% 1,000 ML IV STA (18:06)
[2022-08-20] MEDS ORDERED: Ondansetron 4 MG/2 ML SDV IVPUSH ONE (18:06)
[2022-08-20] MEDS ORDERED: HYDROmorphone 0.5 MG/0.5 ML Syringe IVPUSH ONE (18:06)
[2022-08-20] MEDS ORDERED: Sodium Chloride 0.9% 10 ML Syringe FLUSH PRN (18:06)
[2022-08-20] MEDS ORDERED: Cefdinir 300 MG Cap PO ONE (20:36)
== END 2022-08-20 21:23 | disposition home or self-care (01) ==
LOC: JD.ED 15:32
DX: N30.00 Acute cystitis without hematuria (principal); I25.10 Atherosclerotic heart disease of native coronary artery without angina pectoris; J44.9 Chronic obstructive pulmonary disease, unspecified; Z86.16 Personal history of COVID-19; Z88.8 Allergy status to other drugs, medicaments and biological substances; Z88.2 Allergy status to sulfonamides; Z79.82 Long term (current) use of aspirin; Z79.899 Other long term (current) drug therapy
CPT/HCPCS: 36415; 80053; 80306; 81001; 85025; 86140; 87086; 96361; 96374; 96375; 99284-25; A9270-GY; J1170; J2405; J3490; J7030

== ENCOUNTER 2022-10-11 12:29 | Emergency (ER) | payer MEDICARE, MEDICAID ==
[2022-10-11] MEDS ORDERED: Ondansetron 4 MG/2 ML SDV IVPUSH ONE (13:47)
[2022-10-11] MEDS ORDERED: Sodium Chloride 0.9% 10 ML Syringe FLUSH PRN (13:47)
[2022-10-11] MEDS ORDERED: Sodium Chloride 0.9% 1,000 ML IV SCH (14:00)
[2022-10-11] MEDS ORDERED: HYDROmorphone 0.5 MG/0.5 ML Syringe IVPUSH ONE (14:13)
[2022-10-11] MEDS ORDERED: Sodium Chloride 0.9% 10 ML Syringe FLUSH ONE (14:51)
[2022-10-11] MEDS ORDERED: Iopamidol 612 MG/ML 100 ML Bottle IVPUSH ONE (14:51)
[2022-10-11 17:08] VITALS: BP 111/82; PULSE 95
== END 2022-10-11 17:06 | disposition home or self-care (01) ==
LOC: JD.ED 12:29
DX: N39.0 Urinary tract infection, site not specified (principal); J44.9 Chronic obstructive pulmonary disease, unspecified; Z72.0 Tobacco use; Z88.8 Allergy status to other drugs, medicaments and biological substances; Z88.2 Allergy status to sulfonamides; Z88.6 Allergy status to analgesic agent
CPT/HCPCS: 36415; 74177; 80053; 81001; 83690; 83735; 85025; 86140; 96361; 96374; 96375; 99284; J1170; J2405; J3490; J7030; Q9967

== ENCOUNTER 2022-12-09 03:51 | Emergency (ER) | payer MEDICARE, MEDICAID ==
[2022-12-09] MEDS ORDERED: HYDROmorphone 1 MG/ML Syringe IVPUSH STA (04:11)
[2022-12-09] MEDS ORDERED: Ondansetron 4 MG/2 ML SDV IVPUSH ONE (04:11)
[2022-12-09] MEDS ORDERED: Sodium Chloride 0.9% 1,000 ML IV SCH (04:15)
[2022-12-09] MEDS ORDERED: HYDROmorphone 0.5 MG/0.5 ML Syringe IVPUSH ONE (05:53)
[2022-12-09 07:33] VITALS: BP 127/83
[2022-12-09 07:36] VITALS: PULSE 76
== END 2022-12-09 08:48 | disposition home or self-care (01) ==
LOC: JD.ED 03:51
DX: R10.9 Unspecified abdominal pain (principal); J44.9 Chronic obstructive pulmonary disease, unspecified; I25.10 Atherosclerotic heart disease of native coronary artery without angina pectoris; F17.210 Nicotine dependence, cigarettes, uncomplicated; Z88.2 Allergy status to sulfonamides; Z88.8 Allergy status to other drugs, medicaments and biological substances; Z79.82 Long term (current) use of aspirin; Z79.899 Other long term (current) drug therapy
CPT/HCPCS: 36415; 74177; 80053; 81001; 83690; 85007; 85027; 96361; 96374; 96375; 96376; 99284; J1170; J2405; J7030

== ENCOUNTER 2023-01-20 20:15 | Emergency (ER) | payer MEDICAID, MEDICARE ==
[2023-01-20 20:20] VITALS: BP 124/78; PULSE 75
[2023-01-20] MEDS ORDERED: Sodium Chloride 0.9% 10 ML Syringe FLUSH PRN (20:40)
[2023-01-20 20:55] LABS: WHITE BLOOD CELL COUNT,WBC 7.75 K/mm3 (3.98-10.04)
[2023-01-20 20:56] LABS: BASOPHILS ABSOLUTE AUTO 0.01 K/mm3 (0.01-0.08); BASOPHILS PERCENT AUTO 0.1 % (0.1-1.2); EOSINOPHILS ABSOLUTE AUTO 0.04 K/mm3 (0.04-0.36); EOSINOPHILS PERCENT AUTO 0.5 (0.7-5.8); HEMATOCRIT 39.6 % (34.1-44.9); IMMATURE GRAN ABSOLUTE AUTO 0.01 K/mm3 (0.00-0.10); IMMATURE GRAN PERCENT AUTO 0.1 % (<=1.0); LYMPHOCYTES ABSOLUTE AUTO 1.42 K/mm3 (1.18-3.74); LYMPHOCYTES PERCENT AUTO 18.3 % (19.3-51.7); MEAN CORPUSCULAR HEMOGLOBIN 29.5 pg (25.6-32.2); MEAN CORPUSCULAR HGB CONC 32.8 g/dl (32.2-35.5); MEAN PLATELET VOLUME 8.5 fl (9.4-12.3); MONOCYTES ABSOLUTE AUTO 0.68 K/mm3 (0.24-0.36); MONOCYTES PERCENT AUTO 8.8 % (4.7-12.5); NEUTROPHILS ABSOLUTE AUTO 5.59 K/mm3 (1.56-6.13); NEUTROPHILS PERCENT AUTO 72.2 % (34.0-71.1); PLATELET COUNT,PLT 227 K/mm3 (182-369)
[2023-01-20] MEDS ORDERED: Sodium Chloride 0.9% 1,000 ML IV SCH (21:00)
[2023-01-20 21:17] LABS: A/G RATIO 0.9 (1-2); ALBUMIN 3.5 g/dl (3.4-5.0); ANION GAP 13.4 (5-15); BILIRUBIN TOTAL 0.6 mg/dL (0.2-1.0); C-REACTIVE PROTEIN 0.3 mg/dL (<1.0); CALCIUM 8.9 mg/dL (8.5-10.1); CREATININE 0.6 mg/dL (0.55-1.02); EST CRCL DRUG DOSING (CG) 84.54 mL/min; POTASSIUM,K 3.4 mEq/L (3.5-5.1); PROTEIN TOTAL,TP 7.6 g/dl (6.4-8.2)
[2023-01-20 22:12] LABS: APPEARANCE,URINE CLEAR (Clear); BILIRUBIN,URINE NEGATIVE (Negative); COLOR,URINE YELLOW (Yellow); GLUCOSE,URINE NEGATIVE (Negative); KETONES,URINE 2+ (Negative); LEUKOCYTE ESTERASE,URINE NEGATIVE (Negative); NITRITE,URINE NEGATIVE (Negative); OCCULT BLOOD,URINE 1+ (Negative); PROTEIN,URINE TRACE (Negative); UROBILINOGEN,URINE 0.2 (0.2-1.0)
[2023-01-20 22:18] LABS: BACTERIA,URINE RARE /hpf (FEW); MUCUS,URINE FEW /hpf (FEW); SQUAMOUS EPITHELIAL CELLS,UR 0-5 /hpf (0-5); WBC,URINE 0-5 /hpf (0-5)
[2023-01-20 22:21] LABS: BARBITURATE SCREEN,URINE NEGATIVE (CUTOFF=200); BENZODIAZEPINES SCREEN,URINE NEGATIVE (CUTOFF=150); BUPRENORPHINE SCREEN,URINE NEGATIVE (CUTOFF=10); METHADONE SCREEN, URINE NEGATIVE (CUTOFF=200); METHAMPHETAMINES SCREEN, URINE PRESUMPTIVE POSITIVE (CUTOFF=500); OXYCODONE SCREEN,URINE NEGATIVE (CUT0FF=100); PROPOXYPHENE SCREEN,URINE NEGATIVE (CUTOFF=300); THC SCREEN,URINE 20 NG/ML PRESUMPTIVE POSITIVE (CUTOFF=50)
[2023-01-20 22:22] LABS: AMPHETAMINES SCREEN, URINE PRESUMPTIVE POSITIVE (CUTOFF=500)
== END 2023-01-20 23:27 | disposition home or self-care (01) ==
LOC: JD.ED 20:15
DX: F19.10 Other psychoactive substance abuse, uncomplicated (principal); I25.10 Atherosclerotic heart disease of native coronary artery without angina pectoris; J44.9 Chronic obstructive pulmonary disease, unspecified; F17.210 Nicotine dependence, cigarettes, uncomplicated; Z86.16 Personal history of COVID-19; Z88.5 Allergy status to narcotic agent; Z88.8 Allergy status to other drugs, medicaments and biological substances; Z88.1 Allergy status to other antibiotic agents; Z88.2 Allergy status to sulfonamides; Z88.6 Allergy status to analgesic agent; Z79.82 Long term (current) use of aspirin; Z79.899 Other long term (current) drug therapy
CPT/HCPCS: 36415; 51701; 80053; 80306; 80307; 81001; 83690; 85025; 86140; 87086; 96360; 96361; 99284; J3490; J7030; 99283

== ENCOUNTER 2023-06-10 11:33 | Emergency (ER) | payer MEDICARE, MEDICAID ==
[2023-06-10] MEDS ORDERED: Lactated Ringers 1,000 ML IV ONE (12:07)
[2023-06-10] MEDS ORDERED: HYDROmorphone 0.5 MG/0.5 ML Syringe IVPUSH ONE (12:07)
[2023-06-10] MEDS ORDERED: Naloxone 0.4 MG/ML SDV IVPUSH PRN (12:07)
[2023-06-10 12:55] LABS: BASOPHILS PERCENT AUTO 0.5 % (0.0-1.0); EOSINOPHILS ABSOLUTE AUTO 0.1 K/mm3 (0.0-0.4); EOSINOPHILS PERCENT AUTO 0.9 % (0.0-6.0); HEMATOCRIT 39.6 % (37.0-47.0); HEMOGLOBIN 12.9 gm/dl (12.0-16.0); IMMATURE GRAN ABSOLUTE AUTO 0.02 K/mm3 (0.00-0.05); IMMATURE GRAN PERCENT AUTO 0.4 % (0.0-0.4); LYMPHOCYTES ABSOLUTE AUTO 1.4 K/mm3 (1.0-4.8); LYMPHOCYTES PERCENT AUTO 25.7 % (24.0-44.0); MEAN CORPUSCULAR HEMOGLOBIN 29.1 pg (28.0-32.0); MEAN CORPUSCULAR HGB CONC 32.6 g/dl (32.0-36.0); MEAN CORPUSCULAR VOLUME 89.2 fl (83.0-99.0); MEAN PLATELET VOLUME 8.6 fl (9.4-12.3); MONOCYTES ABSOLUTE AUTO 0.5 K/mm3 (0.0-0.8); MONOCYTES PERCENT AUTO 9.1 % (0.0-8.0); NEUTROPHILS ABSOLUTE AUTO 3.5 K/mm3 (1.8-7.7); NEUTROPHILS PERCENT AUTO 63.4 % (41.0-71.0); PLATELET COUNT,PLT 196 K/mm3 (150-400); RED BLOOD CELL COUNT 4.44 M/mm3 (4.10-5.30); WHITE BLOOD CELL COUNT,WBC 5.52 K/mm3 (3.9-11.3)
[2023-06-10 13:14] LABS: A/G RATIO 0.9 (1-2); ALBUMIN 3.6 g/dl (3.4-5.0); ANION GAP 13.8 (5-15); BILIRUBIN TOTAL 0.3 mg/dL (0.2-1.0); BUN/CREATININE RATIO 11.3 (14-18); CREATININE 0.8 mg/dL (0.55-1.02); EST CRCL DRUG DOSING (CG) 62.63 mL/min; POTASSIUM,K 3.8 mEq/L (3.5-5.1); PROTEIN TOTAL,TP 7.7 g/dl (6.4-8.2)
[2023-06-10 16:32] VITALS: PULSE 73
[2023-06-10 16:33] VITALS: BP 123/78
== END 2023-06-10 16:33 | disposition home or self-care (01) ==
LOC: JD.ED 11:33
DX: M79.7 Fibromyalgia (principal); R20.8 Other disturbances of skin sensation; I25.10 Atherosclerotic heart disease of native coronary artery without angina pectoris; J44.9 Chronic obstructive pulmonary disease, unspecified; F17.210 Nicotine dependence, cigarettes, uncomplicated; Z86.16 Personal history of COVID-19; Z88.2 Allergy status to sulfonamides; Z88.6 Allergy status to analgesic agent; Z88.5 Allergy status to narcotic agent; Z88.8 Allergy status to other drugs, medicaments and biological substances; Z88.1 Allergy status to other antibiotic agents; Z79.82 Long term (current) use of aspirin; Z79.899 Other long term (current) drug therapy
CPT/HCPCS: 36415; 80053; 85025; 96361; 96374; 99283; J1170; J7120; 99284

== ENCOUNTER 2023-08-22 18:34 | Inpatient (IN) | payer MEDICARE, MEDICAID ==
[2023-08-22] MEDS ORDERED: Aspirin 81 MG Tab.Chew PO ONE (18:46)
[2023-08-22] MEDS ORDERED: Sodium Chloride 0.9% 10 ML Syringe FLUSH PRN (18:46)
[2023-08-22 19:03] LABS: BASOPHILS ABSOLUTE AUTO 0.1 K/mm3 (0.0-0.2); BASOPHILS PERCENT AUTO 0.6 % (0.0-1.0); EOSINOPHILS ABSOLUTE AUTO 0.1 K/mm3 (0.0-0.4); EOSINOPHILS PERCENT AUTO 0.7 % (0.0-6.0); HEMATOCRIT 38.1 % (37.0-47.0); HEMOGLOBIN 12.6 gm/dl (12.0-16.0); IMMATURE GRAN ABSOLUTE AUTO 0.12 K/mm3 (0.00-0.05); IMMATURE GRAN PERCENT AUTO 1.3 % (0.0-0.4); LYMPHOCYTES ABSOLUTE AUTO 3.3 K/mm3 (1.0-4.8); LYMPHOCYTES PERCENT AUTO 36.5 % (24.0-44.0); MEAN CORPUSCULAR HGB CONC 33.1 g/dl (32.0-36.0); MEAN CORPUSCULAR VOLUME 90.7 fl (83.0-99.0); MEAN PLATELET VOLUME 9.1 fl (9.4-12.3); MONOCYTES ABSOLUTE AUTO 0.7 K/mm3 (0.0-0.8); MONOCYTES PERCENT AUTO 7.3 % (0.0-8.0); NEUTROPHILS ABSOLUTE AUTO 4.9 K/mm3 (1.8-7.7); NEUTROPHILS PERCENT AUTO 53.6 % (41.0-71.0); PLATELET COUNT,PLT 207 K/mm3 (150-400); WHITE BLOOD CELL COUNT,WBC 9.05 K/mm3 (3.9-11.3)
[2023-08-22] MEDS ORDERED: Ondansetron 4 MG/2 ML SDV IVPUSH ONE (19:15)
[2023-08-22 19:26] LABS: A/G RATIO 0.7 (1-2); ALBUMIN 2.8 g/dl (3.4-5.0); BILIRUBIN TOTAL 0.3 mg/dL (0.2-1.0); BUN/CREATININE RATIO 21.3 (14-18); CALCIUM 8.6 mg/dL (8.5-10.1); CREATININE 0.8 mg/dL (0.55-1.02); EST CRCL DRUG DOSING (CG) 62.63 mL/min; PROTEIN TOTAL,TP 6.6 g/dl (6.4-8.2)
[2023-08-22 19:35] LABS: PROTHROMBIN TIME 9.8 SECONDS (9.7-12.0)
[2023-08-22] MEDS ORDERED: Sodium Chloride 0.9% 500 ML IV ONE ×2 (19:42→21:45)
[2023-08-22 20:04] LABS: INR < 0.93
[2023-08-22] MEDS ORDERED: Iopamidol 755 Mg/ML 100 ML Bottle IVPUSH ONE (20:10)
[2023-08-22] MEDS ORDERED: Sodium Chloride 0.9% 10 ML Syringe FLUSH ONE (20:10)
[2023-08-22] MEDS ORDERED: Sodium Chloride 0.9% 1,000 ML IV SCH (21:15)
[2023-08-22] MEDS ORDERED: Sodium Chloride 0.9% 1,000 ML ONE (21:16)
[2023-08-22] MEDS ORDERED: Piperacillin/Tazobactam 4.5 GM in Sodium Chloride 0.9% 100 ML IV ONE (22:00)
[2023-08-22] MEDS ORDERED: Sodium Chloride 0.9% 1,000 ML IV ONE (22:05)
[2023-08-22 22:57] LABS: APPEARANCE,URINE CLEAR (Clear); BILIRUBIN,URINE NEGATIVE (Negative); COLOR,URINE YELLOW (Yellow); GLUCOSE,URINE NEGATIVE (Negative); KETONES,URINE NEGATIVE (Negative); LEUKOCYTE ESTERASE,URINE NEGATIVE (Negative); NITRITE,URINE NEGATIVE (Negative); OCCULT BLOOD,URINE NEGATIVE (Negative); PH,URINE 8.5 (5.0-8.0); PROTEIN,URINE NEGATIVE (Negative); UROBILINOGEN,URINE 0.2 (0.2-1.0)
[2023-08-22] MEDS ORDERED: HYDROmorphone 1 MG/ML Syringe ONE (22:59)
[2023-08-22] MEDS ORDERED: metroNIDAZOLE/Normal Saline 500 MG in Premix Bag 1 BAG IV ONE (22:59)
[2023-08-22] MEDS ORDERED: HYDROmorphone 1 MG/ML Syringe IVPUSH ONE (23:03)
[2023-08-22 23:08] LABS: BARBITURATE SCREEN,URINE NEGATIVE (CUTOFF=200); BENZODIAZEPINES SCREEN,URINE NEGATIVE (CUTOFF=150); BUPRENORPHINE SCREEN,URINE NEGATIVE (CUTOFF=10); METHADONE SCREEN, URINE NEGATIVE (CUTOFF=200); METHAMPHETAMINES SCREEN, URINE NEGATIVE (CUTOFF=500); OXYCODONE SCREEN,URINE NEGATIVE (CUT0FF=100); THC SCREEN,URINE 20 NG/ML PRESUMPTIVE POSITIVE (CUTOFF=50)
[2023-08-22 23:10] LABS: AMPHETAMINES SCREEN, URINE NEGATIVE (CUTOFF=500)
[2023-08-22] MEDS ORDERED: EPINEPHrine 1 MG/ML SDV ONE (23:35)
[2023-08-22] MEDS ORDERED: ceFAZolin 1 GM Vial ONE (23:35)
[2023-08-22] MEDS ORDERED: Bupivacaine 0.5% 30 ML SDV ONE (23:35)
[2023-08-22] MEDS: Norepinephrine 4 MG in Dextrose 5% in Water 246 ML IV SCH ×2 (23:53)
[2023-08-23] MEDS ORDERED: Sodium Chloride 0.9% 100 ML ONE (00:05)
[2023-08-23] MEDS ORDERED: Sodium Chloride 0.9% 250 ML ONE (00:05)
[2023-08-23] MEDS ORDERED: Lidocaine 0.5% 50 ML SDV ONE (00:16)
[2023-08-23] MEDS ORDERED: fentaNYL 100 MCG/2 ML SDV ONE (00:27)
[2023-08-23] MEDS ORDERED: Midazolam 1 MG/ML 2 ML SDV ONE (00:27)
[2023-08-23] MEDS ORDERED: Etomidate 2 MG/ML 20 ML SDV IVPUSH ONE (00:29)
[2023-08-23] MEDS ORDERED: Succinylcholine 200 MG/10 ML MDV ONE (00:29)
[2023-08-23] MEDS ORDERED: Rocuronium 50 MG/5 ML Vial ONE ×2 (00:41→01:41)
[2023-08-23] MEDS ORDERED: Lactated Ringers 1,000 ML ONE (00:49)
[2023-08-23] MEDS ORDERED: Phenylephrine 1% 10 MG/ML SDV ONE (00:51)
[2023-08-23] MEDS ORDERED: Ondansetron 4 MG/2 ML SDV IVPUSH PRN (01:38)
[2023-08-23] MEDS ORDERED: fentaNYL 100 MCG/2 ML SDV IVPUSH PRN (01:38)
[2023-08-23] MEDS ORDERED: HYDROmorphone 0.5 MG/0.5 ML Syringe IVPUSH PRN (01:38)
[2023-08-23] MEDS ORDERED: Benzocaine 20% Topical Spray UD MUCMEM ONE ×2 (02:57→08:19)
[2023-08-23] MEDS ORDERED: HYDROmorphone 1 MG/ML Syringe IVPUSH PRN (02:57)
[2023-08-23] MEDS ORDERED: Lactated Ringers 1,000 ML IV SCH (03:00)
[2023-08-23] MEDS ORDERED: Piperacillin/Tazobactam 4.5 GM in Sodium Chloride 0.9% 100 ML IV SCH (03:00)
[2023-08-23] MEDS ORDERED: LORazepam 2 MG/ML SDV ONE (03:18)
[2023-08-23] MEDS ORDERED: propofoL 100 ML IV SCH (03:30)
[2023-08-23] MEDS: LORazepam 2 MG/ML SDV IVPUSH PRN ×2 (03:30→20:24)
[2023-08-23] MEDS: Piperacillin/Tazobactam 4.5 GM in Sodium Chloride 0.9% 100 ML IV SCH ×3 (04:00→20:23)
[2023-08-23 04:05] LABS: BICARBONATE,ARTERIAL 22.9 meq/L (22.0-26.0); O2 SATURATION ARTERIAL 97.9 % (96.0-97.0); PCO2 ARTERIAL 43.7 mmHg (35.0-45.0)
[2023-08-23 04:06] LABS: BASE EXCESS ARTERIAL -2.3 (-2-2.0)
[2023-08-23] MEDS: Sodium Chloride 0.9% 1,000 ML IV SCH ×6 (04:44→23:53)
[2023-08-23 04:46] LABS: BASOPHILS PERCENT AUTO 0.3 % (0.0-1.0); EOSINOPHILS ABSOLUTE AUTO 0.1 K/mm3 (0.0-0.4); EOSINOPHILS PERCENT AUTO 0.8 % (0.0-6.0); HEMATOCRIT 34.6 % (37.0-47.0); HEMOGLOBIN 10.9 gm/dl (12.0-16.0); IMMATURE GRAN ABSOLUTE AUTO 0.13 K/mm3 (0.00-0.05); IMMATURE GRAN PERCENT AUTO 1.6 % (0.0-0.4); LYMPHOCYTES ABSOLUTE AUTO 1.8 K/mm3 (1.0-4.8); LYMPHOCYTES PERCENT AUTO 23.1 % (24.0-44.0); MEAN CORPUSCULAR HEMOGLOBIN 29.1 pg (28.0-32.0); MEAN CORPUSCULAR HGB CONC 31.5 g/dl (32.0-36.0); MEAN CORPUSCULAR VOLUME 92.5 fl (83.0-99.0); MEAN PLATELET VOLUME 9.4 fl (9.4-12.3); MONOCYTES ABSOLUTE AUTO 0.6 K/mm3 (0.0-0.8); MONOCYTES PERCENT AUTO 7.7 % (0.0-8.0); NEUTROPHILS ABSOLUTE AUTO 5.2 K/mm3 (1.8-7.7); NEUTROPHILS PERCENT AUTO 66.5 % (41.0-71.0); PLATELET COUNT,PLT 175 K/mm3 (150-400); RED BLOOD CELL COUNT 3.74 M/mm3 (4.10-5.30); WHITE BLOOD CELL COUNT,WBC 7.88 K/mm3 (3.9-11.3)
[2023-08-23 05:08] LABS: A/G RATIO 0.7 (1-2); ALBUMIN 2.2 g/dl (3.4-5.0); ANION GAP 12.8 (5-15); BILIRUBIN TOTAL 0.3 mg/dL (0.2-1.0); CALCIUM 7.1 mg/dL (8.5-10.1); CREATININE 0.5 mg/dL (0.55-1.02); EST CRCL DRUG DOSING (CG) 100.22 mL/min; POTASSIUM,K 3.8 mEq/L (3.5-5.1); PROTEIN TOTAL,TP 5.2 g/dl (6.4-8.2)
[2023-08-23] MEDS ORDERED: LORazepam 2 MG/ML SDV IV ONE (07:59)
[2023-08-23] MEDS: Famotidine 20 MG/2 ML SDV IV SCH (08:28)
[2023-08-23] MEDS: metroNIDAZOLE/Normal Saline 500 MG in Premix Bag 1 BAG IV SCH ×3 (08:37→23:54)
[2023-08-23] MEDS: Nicotine 14 MG/24 Hr Patch TRDERM SCH (12:29)
[2023-08-23] MEDS: Benzocaine 20% Topical Spray UD MUCMEM PRN ×2 (12:34→17:20)
[2023-08-23] MEDS: HYDROmorphone 0.5 MG/0.5 ML Syringe IVPUSH PRN ×6 (13:05→22:51)
[2023-08-23] MEDS ORDERED: diphenhydrAMINE 50 MG/ML SDV IVPUSH ONE (22:44)
[2023-08-23] MEDS ORDERED: diphenhydrAMINE 50 MG/ML SDV IVPUSH PRN (22:47)
[2023-08-24] MEDS: HYDROmorphone 0.5 MG/0.5 ML Syringe IVPUSH PRN ×2 (01:03→02:57)
[2023-08-24] MEDS: LORazepam 2 MG/ML SDV IVPUSH PRN ×7 (03:30→23:06)
[2023-08-24] MEDS: Piperacillin/Tazobactam 4.5 GM in Sodium Chloride 0.9% 100 ML IV SCH ×3 (03:55→20:24)
[2023-08-24 04:11] LABS: BASE EXCESS ARTERIAL -1.3 (-2-2.0); BICARBONATE,ARTERIAL 25.3 meq/L (22.0-26.0); O2 SATURATION ARTERIAL 94.2 % (96.0-97.0); PCO2 ARTERIAL 52.4 mmHg (35.0-45.0)
[2023-08-24] MEDS ORDERED: Furosemide 20 MG/2 ML VIAL IVPUSH ONE (04:15)
[2023-08-24] MEDS ORDERED: Albuterol 0.083% 2.5 MG/3 ML Neb Soln NEB PRN (04:17)
[2023-08-24] MEDS ORDERED: LORazepam 2 MG/ML SDV ONE ×3 (04:31→07:56)
[2023-08-24] MEDS: LORazepam 2 MG/ML SDV IVPUSH ONE ×2 (04:41)
[2023-08-24] MEDS ORDERED: LORazepam 2 MG/ML SDV IVPUSH STA (06:10)
[2023-08-24] MEDS: Norepinephrine 4 MG in Dextrose 5% in Water 246 ML IV SCH ×2 (06:48)
[2023-08-24] MEDS: Nicotine 14 MG/24 Hr Patch TRDERM SCH (08:27)
[2023-08-24] MEDS: metroNIDAZOLE/Normal Saline 500 MG in Premix Bag 1 BAG IV SCH (08:28)
[2023-08-24] MEDS: Famotidine 20 MG/2 ML SDV IV SCH (08:30)
[2023-08-24 08:53] LABS: BASOPHILS PERCENT AUTO 0.2 % (0.0-1.0); EOSINOPHILS ABSOLUTE AUTO 0.1 K/mm3 (0.0-0.4); EOSINOPHILS PERCENT AUTO 0.6 % (0.0-6.0); HEMATOCRIT 36.1 % (37.0-47.0); HEMOGLOBIN 12.2 gm/dl (12.0-16.0); IMMATURE GRAN ABSOLUTE AUTO 0.15 K/mm3 (0.00-0.05); IMMATURE GRAN PERCENT AUTO 1.2 % (0.0-0.4); LYMPHOCYTES ABSOLUTE AUTO 0.7 K/mm3 (1.0-4.8); LYMPHOCYTES PERCENT AUTO 5.8 % (24.0-44.0); MEAN CORPUSCULAR HEMOGLOBIN 29.7 pg (28.0-32.0); MEAN CORPUSCULAR HGB CONC 33.8 g/dl (32.0-36.0); MEAN CORPUSCULAR VOLUME 87.8 fl (83.0-99.0); MEAN PLATELET VOLUME 9.3 fl (9.4-12.3); MONOCYTES ABSOLUTE AUTO 0.7 K/mm3 (0.0-0.8); MONOCYTES PERCENT AUTO 5.5 % (0.0-8.0); NEUTROPHILS ABSOLUTE AUTO 10.9 K/mm3 (1.8-7.7); NEUTROPHILS PERCENT AUTO 86.7 % (41.0-71.0); PLATELET COUNT,PLT 152 K/mm3 (150-400); RED BLOOD CELL COUNT 4.11 M/mm3 (4.10-5.30); WHITE BLOOD CELL COUNT,WBC 12.58 K/mm3 (3.9-11.3)
[2023-08-24 09:47] LABS: A/G RATIO 0.7 (1-2); ALBUMIN 2.5 g/dl (3.4-5.0); C-REACTIVE PROTEIN 4.7 mg/dL (<1.0); CALCIUM 8.1 mg/dL (8.5-10.1); CREATININE 0.5 mg/dL (0.55-1.02); EST CRCL DRUG DOSING (CG) 100.22 mL/min; POTASSIUM,K 3.5 mEq/L (3.5-5.1); PROTEIN TOTAL,TP 6.1 g/dl (6.4-8.2)
[2023-08-24 09:56] LABS: ANION GAP 12.5 (5-15)
[2023-08-24] MEDS: Sodium Chloride 0.9% 1,000 ML IV SCH (12:15)
[2023-08-25] MEDS: LORazepam 2 MG/ML SDV IVPUSH PRN ×6 (01:05→22:18)
[2023-08-25] MEDS: Piperacillin/Tazobactam 4.5 GM in Sodium Chloride 0.9% 100 ML IV SCH ×3 (03:39→19:24)
[2023-08-25 05:03] LABS: HEMATOCRIT 35.5 % (37.0-47.0); HEMOGLOBIN 12.2 gm/dl (12.0-16.0); MEAN CORPUSCULAR HEMOGLOBIN 29.5 pg (28.0-32.0); MEAN CORPUSCULAR HGB CONC 34.4 g/dl (32.0-36.0); MEAN CORPUSCULAR VOLUME 85.7 fl (83.0-99.0); MEAN PLATELET VOLUME 9.2 fl (9.4-12.3); PLATELET COUNT,PLT 189 K/mm3 (150-400); RED BLOOD CELL COUNT 4.14 M/mm3 (4.10-5.30)
[2023-08-25 05:51] LABS: A/G RATIO 0.7 (1-2); ALBUMIN 2.3 g/dl (3.4-5.0); ANION GAP 14.5 (5-15); BILIRUBIN TOTAL 0.7 mg/dL (0.2-1.0); BUN/CREATININE RATIO 11.4 (14-18); CALCIUM 8.1 mg/dL (8.5-10.1); CREATININE 0.7 mg/dL (0.55-1.02); EST CRCL DRUG DOSING (CG) 71.58 mL/min; POTASSIUM,K 3.5 mEq/L (3.5-5.1); PROTEIN TOTAL,TP 5.6 g/dl (6.4-8.2)
[2023-08-25] MEDS: NS + KCl 20mEq/L 1,000 ML IV SCH (07:57)
[2023-08-25] MEDS: Famotidine 20 MG/2 ML SDV IV SCH (08:01)
[2023-08-25] MEDS: Nicotine 14 MG/24 Hr Patch TRDERM SCH (08:01)
[2023-08-25] MEDS: HYDROmorphone 0.5 MG/0.5 ML Syringe IVPUSH PRN ×5 (10:02→23:06)
[2023-08-25] MEDS: Ondansetron 4 MG/2 ML SDV IVPUSH PRN (23:06)
[2023-08-26] MEDS: LORazepam 2 MG/ML SDV IVPUSH PRN ×2 (02:22→06:25)
[2023-08-26] MEDS: NS + KCl 20mEq/L 1,000 ML IV SCH ×2 (03:08→23:59)
[2023-08-26] MEDS: Piperacillin/Tazobactam 4.5 GM in Sodium Chloride 0.9% 100 ML IV SCH ×3 (03:59→19:30)
[2023-08-26 05:43] LABS: ANION GAP 13.2 (5-15); CALCIUM 7.8 mg/dL (8.5-10.1); CREATININE 0.5 mg/dL (0.55-1.02); EST CRCL DRUG DOSING (CG) 100.22 mL/min; POTASSIUM,K 3.2 mEq/L (3.5-5.1)
[2023-08-26 06:15] LABS: HEMATOCRIT 34.5 % (37.0-47.0); HEMOGLOBIN 11.5 gm/dl (12.0-16.0); MEAN CORPUSCULAR HEMOGLOBIN 29.8 pg (28.0-32.0); MEAN CORPUSCULAR HGB CONC 33.3 g/dl (32.0-36.0); MEAN CORPUSCULAR VOLUME 89.4 fl (83.0-99.0); MEAN PLATELET VOLUME 9.9 fl (9.4-12.3); PLATELET COUNT,PLT 188 K/mm3 (150-400); RED BLOOD CELL COUNT 3.86 M/mm3 (4.10-5.30); WHITE BLOOD CELL COUNT,WBC 5.48 K/mm3 (3.9-11.3)
[2023-08-26] MEDS: Famotidine 20 MG/2 ML SDV IV SCH (08:40)
[2023-08-26] MEDS: Nicotine 14 MG/24 Hr Patch TRDERM SCH ×2 (08:42→15:47)
[2023-08-26] MEDS ORDERED: Potassium Chloride 10 MEQ in Premix Bag 1 BAG IV ONE (12:30)
[2023-08-26 18:11] VITALS: PULSE 61
[2023-08-26] MEDS: QUEtiapine 25 MG Tab PO SCH (20:05)
[2023-08-27] MEDS: Piperacillin/Tazobactam 4.5 GM in Sodium Chloride 0.9% 100 ML IV SCH ×3 (04:09→19:39)
[2023-08-27 05:42] LABS: HEMATOCRIT 36.2 % (37.0-47.0); HEMOGLOBIN 12.4 gm/dl (12.0-16.0); MEAN CORPUSCULAR HEMOGLOBIN 30.4 pg (28.0-32.0); MEAN CORPUSCULAR HGB CONC 34.3 g/dl (32.0-36.0); MEAN CORPUSCULAR VOLUME 88.7 fl (83.0-99.0); MEAN PLATELET VOLUME 9.1 fl (9.4-12.3); PLATELET COUNT,PLT 188 K/mm3 (150-400); RED BLOOD CELL COUNT 4.08 M/mm3 (4.10-5.30); WHITE BLOOD CELL COUNT,WBC 5.36 K/mm3 (3.9-11.3)
[2023-08-27 05:50] LABS: ANION GAP 19.8 (5-15); CALCIUM 8.1 mg/dL (8.5-10.1); CREATININE 0.6 mg/dL (0.55-1.02); EST CRCL DRUG DOSING (CG) 83.51 mL/min; POTASSIUM,K 3.8 mEq/L (3.5-5.1)
[2023-08-27] MEDS: Famotidine 20 MG/2 ML SDV IV SCH (08:00)
[2023-08-27] MEDS: QUEtiapine 25 MG Tab PO SCH ×2 (08:00→20:09)
[2023-08-27] MEDS: Nicotine 14 MG/24 Hr Patch TRDERM SCH (08:01)
[2023-08-27] MEDS: HYDROmorphone 0.5 MG/0.5 ML Syringe IVPUSH PRN ×4 (08:01→23:01)
[2023-08-27] MEDS: Ondansetron 4 MG/2 ML SDV IVPUSH PRN (16:32)
[2023-08-27] MEDS ORDERED: Acetaminophen/oxyCODONE 325-5 MG Tab PO PRN (19:02)
[2023-08-27] MEDS: NS + KCl 20mEq/L 1,000 ML IV SCH (20:45)
[2023-08-27] MEDS ORDERED: Docusate Sodium 100 MG Cap PO SCH (21:00)
[2023-08-28] MEDS: HYDROmorphone 0.5 MG/0.5 ML Syringe IVPUSH PRN (03:13)
[2023-08-28] MEDS: Piperacillin/Tazobactam 4.5 GM in Sodium Chloride 0.9% 100 ML IV SCH (03:14)
[2023-08-28 04:06] VITALS: BP 136/76
== END 2023-08-28 07:21 | disposition left against medical advice (07) | DRG 394 ==
LOC: JD.ED 18:34 → JD.SDS 23:17 → JD.ICU 08-23 02:57
PROVIDERS: ADMIT Specialist; ATTEND Specialist
PROC: 0DJ08ZZ Inspection of Upper Intestinal Tract, Via Natural or Artificial Opening Endoscopic (ICD-10-PCS; principal; 2023-08-22 23:28)
PROC: 3E033XZ Introduction of Vasopressor into Peripheral Vein, Percutaneous Approach (ICD-10-PCS; 2023-08-23)
PROC: 5A1935Z Respiratory Ventilation, Less than 24 Consecutive Hours (ICD-10-PCS; 2023-08-23)
DX: A41.9 Sepsis, unspecified organism (principal); K63.89 Other specified diseases of intestine; R65.21 Severe sepsis with septic shock; K31.89 Other diseases of stomach and duodenum; J98.11 Atelectasis; Z99.11 Dependence on respirator [ventilator] status; I25.10 Atherosclerotic heart disease of native coronary artery without angina pectoris; I50.9 Heart failure, unspecified; Z88.5 Allergy status to narcotic agent; Z88.1 Allergy status to other antibiotic agents; R09.02 Hypoxemia; J44.9 Chronic obstructive pulmonary disease, unspecified; Z88.6 Allergy status to analgesic agent; F10.10 Alcohol abuse, uncomplicated; F15.10 Other stimulant abuse, uncomplicated; K43.9 Ventral hernia without obstruction or gangrene; R58 Hemorrhage, not elsewhere classified; F29 Unspecified psychosis not due to a substance or known physiological condition; M79.7 Fibromyalgia; K66.8 Other specified disorders of peritoneum; G62.9 Polyneuropathy, unspecified; F41.9 Anxiety disorder, unspecified; F17.210 Nicotine dependence, cigarettes, uncomplicated; F32.A Depression, unspecified; Z21 Asymptomatic human immunodeficiency virus [HIV] infection status; F43.10 Post-traumatic stress disorder, unspecified; Z98.51 Tubal ligation status; Z79.899 Other long term (current) drug therapy; Z79.82 Long term (current) use of aspirin; Z79.890 Hormone replacement therapy; Z79.52 Long term (current) use of systemic steroids; Z95.5 Presence of coronary angioplasty implant and graft; Z90.710 Acquired absence of both cervix and uterus; Z98.890 Other specified postprocedural states; Z90.89 Acquired absence of other organs; Z56.0 Unemployment, unspecified; Z88.8 Allergy status to other drugs, medicaments and biological substances; Z88.2 Allergy status to sulfonamides
CPT/HCPCS: 36415; 51702; 71045; 71275; 74018; 74176; 80053; 80306; 80307; 81003; 83605; 83690; 83735; 83880; 84484; 85025; 85379; 85610; 86850; 86900; 86901; 87040 ×2; 93005; 94002; 96361; 96365; 96375; 99285; A9270; J0171; J0330; J0665; J0690; J1170; J1836; J2250; J2371; J2405; J2543; J3010; J3490 ×5; J7030 ×5; J7050; J7060; J7120; Q9967; 00790; 36600; 80048; 82803; 85027; 86140; 93010; 94640; 94660; 99140; 99204; 99222; J1200; J1940; J2060; J2704; J3480; J7620-GY

== ENCOUNTER 2023-09-26 11:00 | Emergency (ER) | payer MEDICARE, MEDICAID ==
[2023-09-26] MEDS: Sodium Chloride 0.9% 10 ML Syringe FLUSH PRN (11:45)
[2023-09-26] MEDS: Sodium Chloride 0.9% 1,000 ML IV SCH (12:08)
[2023-09-26 12:14] LABS: BASOPHILS PERCENT AUTO 0.4 % (0.0-1.0); EOSINOPHILS ABSOLUTE AUTO 0.1 K/mm3 (0.0-0.4); EOSINOPHILS PERCENT AUTO 0.8 % (0.0-6.0); HEMATOCRIT 35.8 % (37.0-47.0); HEMOGLOBIN 11.6 gm/dl (12.0-16.0); IMMATURE GRAN ABSOLUTE AUTO 0.14 K/mm3 (0.00-0.05); IMMATURE GRAN PERCENT AUTO 1.8 % (0.0-0.4); LYMPHOCYTES ABSOLUTE AUTO 2.1 K/mm3 (1.0-4.8); LYMPHOCYTES PERCENT AUTO 26.4 % (24.0-44.0); MEAN CORPUSCULAR HEMOGLOBIN 29.5 pg (28.0-32.0); MEAN CORPUSCULAR HGB CONC 32.4 g/dl (32.0-36.0); MEAN CORPUSCULAR VOLUME 91.1 fl (83.0-99.0); MEAN PLATELET VOLUME 8.8 fl (9.4-12.3); MONOCYTES ABSOLUTE AUTO 0.4 K/mm3 (0.0-0.8); NEUTROPHILS ABSOLUTE AUTO 5.1 K/mm3 (1.8-7.7); NEUTROPHILS PERCENT AUTO 65.6 % (41.0-71.0); PLATELET COUNT,PLT 265 K/mm3 (150-400); RED BLOOD CELL COUNT 3.93 M/mm3 (4.10-5.30); WHITE BLOOD CELL COUNT,WBC 7.76 K/mm3 (3.9-11.3)
[2023-09-26 12:35] LABS: LACTIC ACID 1.1 mmol/L (0.4-2.0)
[2023-09-26 12:42] LABS: A/G RATIO 0.8 (1-2); ALBUMIN 3.6 g/dl (3.4-5.0); ANION GAP 13.9 (5-15); BILIRUBIN TOTAL 0.3 mg/dL (0.2-1.0); BUN/CREATININE RATIO 7.1 (14-18); CALCIUM 9.2 mg/dL (8.5-10.1); CREATININE 0.7 mg/dL (0.55-1.02); EST CRCL DRUG DOSING (CG) 65.3 mL/min; POTASSIUM,K 3.9 mEq/L (3.5-5.1)
[2023-09-26 12:46] LABS: CORONAVIRUS COVID-19 NAA NEGATIVE (NEGATIVE); INFLUENZA A NAA NEGATIVE (NEGATIVE); RESPIRATORY SYNCYTIAL VIR NAA NEGATIVE (NEGATIVE)
[2023-09-26 13:21] LABS: APPEARANCE,URINE CLEAR (Clear); BILIRUBIN,URINE NEGATIVE (Negative); COLOR,URINE YELLOW (Yellow); GLUCOSE,URINE NEGATIVE (Negative); KETONES,URINE NEGATIVE (Negative); LEUKOCYTE ESTERASE,URINE NEGATIVE (Negative); NITRITE,URINE NEGATIVE (Negative); OCCULT BLOOD,URINE NEGATIVE (Negative); PH,URINE 7.5 (5.0-8.0); PROTEIN,URINE NEGATIVE (Negative); UROBILINOGEN,URINE 0.2 (0.2-1.0)
[2023-09-26] MEDS: cefTRIAXone 2 GM in Sodium Chloride 0.9% 100 ML IV ONE (14:34)
[2023-09-26] MEDS ORDERED: Levofloxacin/Dextrose 5%-Water 750 MG in Premix Bag 1 BAG IV SCH (14:45)
[2023-09-26] MEDS ORDERED: Levofloxacin/Dextrose 5%-Water 750 MG in Premix Bag 1 BAG IV ONE (15:01)
[2023-09-26] MEDS ORDERED: Acetaminophen 325 MG Tab ONE (15:55)
[2023-09-26] MEDS ORDERED: Levofloxacin/Dextrose 5%-Water 150 ML IV ONE (15:55)
[2023-09-26] MEDS: Acetaminophen 325 MG Tab PO ONE (16:01)
[2023-09-26] MEDS: Levofloxacin/Dextrose 5%-Water 750 MG in Premix Bag 1 BAG IV ONE (16:03)
[2023-09-26 18:59] VITALS: BP 130/90; PULSE 79
== END 2023-09-26 17:44 | disposition home or self-care (01) ==
LOC: JD.ED 11:00 → UNDOADMIN 14:38 → JD.MS 14:38 → JD.ED 17:44
DX: J18.9 Pneumonia, unspecified organism (principal); J44.9 Chronic obstructive pulmonary disease, unspecified; I50.9 Heart failure, unspecified; Z79.82 Long term (current) use of aspirin; Z79.899 Other long term (current) drug therapy; Z86.16 Personal history of COVID-19; Z88.6 Allergy status to analgesic agent; Z88.8 Allergy status to other drugs, medicaments and biological substances; Z88.5 Allergy status to narcotic agent
CPT/HCPCS: 0241U; 36415; 71045; 71250; 80053; 81003; 83605; 84145; 84484; 85025; 85379; 86140; 87040; 93005; 96361; 96365; 96366; 96367; 99285; A9270; J0696; J1956; J3490; J7030

== ENCOUNTER 2024-07-11 14:30 | Emergency (ER) | payer MEDICARE, MEDICAID ==
[2024-07-11] MEDS ORDERED: Sodium Chloride 0.9% 10 ML Syringe FLUSH PRN (14:52)
[2024-07-11] MEDS: Ondansetron 4 MG/2 ML SDV IVPUSH ONE (15:01)
[2024-07-11] MEDS: HYDROmorphone 0.5 MG/0.5 ML Syringe IVPUSH ONE ×2 (15:01→17:03)
[2024-07-11] MEDS: Sodium Chloride 0.9% 1,000 ML IV SCH (15:01)
[2024-07-11 15:13] VITALS: BP 167/102; PULSE 94
[2024-07-11] MEDS: Sodium Chloride 0.9% 10 ML Syringe FLUSH ONE (15:22)
[2024-07-11] MEDS: Iopamidol 612 MG/ML 100 ML Bottle IVPUSH ONE (15:22)
[2024-07-11 15:56] LABS: BASOPHILS PERCENT AUTO 0.4 % (0.0-1.0); EOSINOPHILS PERCENT AUTO 0.3 % (0.0-6.0); HEMATOCRIT 41.9 % (37.0-47.0); HEMOGLOBIN 13.6 gm/dl (12.0-16.0); IMMATURE GRAN ABSOLUTE AUTO 0.06 K/mm3 (0.00-0.05); IMMATURE GRAN PERCENT AUTO 0.8 % (0.0-0.4); LYMPHOCYTES ABSOLUTE AUTO 1.9 K/mm3 (1.0-4.8); LYMPHOCYTES PERCENT AUTO 25.5 % (24.0-44.0); MEAN CORPUSCULAR HEMOGLOBIN 29.4 pg (28.0-32.0); MEAN CORPUSCULAR HGB CONC 32.5 g/dl (32.0-36.0); MEAN CORPUSCULAR VOLUME 90.5 fl (83.0-99.0); MEAN PLATELET VOLUME 9.9 fl (9.4-12.3); MONOCYTES ABSOLUTE AUTO 0.5 K/mm3 (0.0-0.8); MONOCYTES PERCENT AUTO 6.5 % (0.0-8.0); NEUTROPHILS ABSOLUTE AUTO 4.9 K/mm3 (1.8-7.7); NEUTROPHILS PERCENT AUTO 66.5 % (41.0-71.0); PLATELET COUNT,PLT 270 K/mm3 (150-400); RED BLOOD CELL COUNT 4.63 M/mm3 (4.10-5.30); WHITE BLOOD CELL COUNT,WBC 7.37 K/mm3 (3.9-11.3)
[2024-07-11 16:01] LABS: APPEARANCE,URINE CLEAR (Clear); BILIRUBIN,URINE NEGATIVE (Negative); COLOR,URINE LIGHT YELLOW (Yellow); GLUCOSE,URINE NEGATIVE (Negative); KETONES,URINE NEGATIVE (Negative); LEUKOCYTE ESTERASE,URINE NEGATIVE (Negative); NITRITE,URINE NEGATIVE (Negative); OCCULT BLOOD,URINE TRACE-INTACT (Negative); PROTEIN,URINE NEGATIVE (Negative); UROBILINOGEN,URINE 0.2 (0.2-1.0)
[2024-07-11 16:06] LABS: A/G RATIO 0.9 (1-2); ALBUMIN 3.9 g/dl (3.4-5.0); ANION GAP 12.7 (5-15); BILIRUBIN TOTAL 0.2 mg/dL (0.2-1.0); BUN/CREATININE RATIO 13.8 (14-18); CALCIUM 8.9 mg/dL (8.5-10.1); CREATININE 0.8 mg/dL (0.55-1.02); EST CRCL DRUG DOSING (CG) 56.43 mL/min; POTASSIUM,K 3.7 mEq/L (3.5-5.1); PROTEIN TOTAL,TP 8.3 g/dl (6.4-8.2)
[2024-07-11 16:27] LABS: RBC,URINE 0-5 /hpf (0-5); WBC,URINE 0-5 /hpf (0-5)
[2024-07-11 16:28] LABS: BACTERIA,URINE FEW /hpf (FEW); MUCUS,URINE FEW /hpf (FEW); SQUAMOUS EPITHELIAL CELLS,UR 0-5 /hpf (0-5)
[2024-07-11] MEDS: Metoclopramide 10 MG/2 ML SDV IVPUSH ONE (17:03)
== END 2024-07-11 17:35 | disposition home or self-care (01) ==
LOC: JD.ED 14:30
DX: K52.9 Noninfective gastroenteritis and colitis, unspecified (principal); I25.10 Atherosclerotic heart disease of native coronary artery without angina pectoris; I50.9 Heart failure, unspecified; J44.9 Chronic obstructive pulmonary disease, unspecified; F17.210 Nicotine dependence, cigarettes, uncomplicated; Z86.16 Personal history of COVID-19; Z95.5 Presence of coronary angioplasty implant and graft; Z90.49 Acquired absence of other specified parts of digestive tract; Z90.710 Acquired absence of both cervix and uterus; Z88.2 Allergy status to sulfonamides; Z88.8 Allergy status to other drugs, medicaments and biological substances; Z79.51 Long term (current) use of inhaled steroids; Z79.82 Long term (current) use of aspirin; Z79.899 Other long term (current) drug therapy
CPT/HCPCS: 36415; 74177; 74177-26; 80053; 81001; 83690; 85025; 96361; 96374; 96375; 96376; 99284-25; J1171; J2405; J2765; J3490; J7030; Q9967